=== PATIENT | male | born 1935 | race Caucasian/White ===

== ENCOUNTER 2016-06-15 23:22 | Observation (INO) | payer OTHER ==
[~2016-06-15] VITALS: Ht 162.6 cm; Wt 64.4 kg
[~2016-06-15 23:22] MED LIST: ALLO300T2 PO; BUME0.5T PO; CENTCHW3 PO; CHOL50006 PO; CO Q100C9 PO; IRONTAB4 PO; ISOS20TA38 PO; KCL10C PO; LISI-357 PO; MAGN400T20 PO; METO100T9 PO; OCUVTAB4 PO; POLY119S PO; PRAV20 PO; PROS5TAB2 PO; PROT40TA PO; TRAM100T19 PO; ZINC30CA PO
[2016-06-15 23:23] VITALS: BP 175/89; PULSE 70; RESP 18; TEMP 97.8; O2SAT 98
[2016-06-16] VITALS (8 sets, daily range): BP systolic 112–169; BP diastolic 58–80; PULSE 66–81; RESP 16–20; TEMP 97.6–98.3; O2SAT 96–99
--- NOTE | 2016-06-16 03:00 | RADRPT ---
EXAM DATE/TIME: 06/16/2016 02:16 [place] COMPARISON: CT ABDOMEN & PELVIS W/O CONTRAST, January 17, 2016, 20:24. INDICATIONS : Hematuria and inability to urinate. ORAL CONTRAST: No oral contrast ingested. RADIATION DOSE: 6.90 CTDIvol (mGy) MEDICAL HISTORY : Hypertension. Hernia, hiatal. diabetes, kidney disease, celiac disease prostate cancer SURGICAL HISTORY : Pacemaker. open heart, renal stent. ENCOUNTER: Initial ACUITY: 1 day PAIN SCALE: 7/10 LOCATION: abdomen TECHNIQUE: Volumetric scanning of the abdomen and pelvis was performed. Using automated exposure control and ad justment of the mA and/or kV according to patient size, radiation dose was kept as low as reasonably achievable to obtain optimal diagnostic quality images. FINDINGS: LOWER LUNGS: Moderate cardiomegaly. Clear lungs. LIVER: Homogeneous density without lesion. There is no dilation of the biliary tree. Small calcified gallst ones. SPLEEN: Normal size without lesion. PANCREAS: Within normal limits. KIDNEYS: Left kidney is atrophic. There is high attenuation material filling the collecting system which is mi ldly distended. A ureteral stent is noted ending in position. The appearance is similar to the prior study although the distention of the collecting system is considerably less. The right kidney is unre markable. No renal or ureteral calculi seen. ADRENAL GLANDS: Within normal limits. VASCULAR: There is no aortic aneurysm. BOWEL/MESENTERY: The stomach, small bowel, and colon demonstrate no acute abnormality. There is no free intraperitone al air. A small amount of ascitic fluid. ABDOMINAL WALL: A small umbilical hernia containing fat. RETROPERITONEUM: There is no lymphadenopathy. BLADDER: Urinary bladder is filled with high density material consistent with blood. There is an inflammatory process involving the wall which is thick walled and there is stranding of the adjacent fat. No stone s observed. A Lobo balloon is noted. REPRODUCTIVE: Within normal limits. INGUINAL: There is no lymphadenopathy or hernia. MUSCULOSKELETAL: Within normal limits for patient age. CONCLUSION: 1. Blood filling the urinary bladder as well as the collecting system of the left kidney. A left uret eral stent is present with mild hydronephrosis and hydroureter. The hydronephrosis and hydroureter is less pronounced than the prior study. There is an inflammatory component to the urinary bladder. Thi s is a new finding. 2. Small volume of ascites. 3. Cholelithiasis. 4. Umbilical hernia containing fat. Denny Linda Jr., MD on June 16, 2016 at 2:53 Board Certified Radiologist. This report was verified electronically.
[2016-06-16 03:02] LABS: AUTOMATED NEUTROPHIL # 11.3 TH/MM3 (1.8-7.7); BASOPHIL # 0.1 TH/MM3 (0-0.2); BASOPHIL % 0.7 % (0.0-2.0); EOSINOPHIL # 0.1 TH/MM3 (0-0.4); EOSINOPHIL % 0.5 % (0.0-4.0); HEMATOCRIT 36.2 % (39.0-51.0); HEMO FLAGS DIFF FINAL; LYMPHOCYTE # 0.5 TH/MM3 (1.0-4.8); MEAN CELL VOLUME 104.9 FL (80.0-100.0); MEAN CORPUSCULAR HEMOGLOBIN 34.4 PG (27.0-34.0); MEAN CORPUSCULAR HGB CONC 32.8 % (32.0-36.0); MONO % 3.8 % (0.0-8.0); PLATELET COUNT 174 TH/MM3 (150-450); RED BLOOD COUNT 3.45 MIL/MM3 (4.50-5.90); WHITE BLOOD COUNT 12.4 TH/MM3 (4.0-11.0)
[2016-06-16 03:06] LABS: BICARBONATE 23.1 MEQ/L (21.0-32.0); POTASSIUM 5.1 MEQ/L (3.5-5.1)
[2016-06-16 03:11] LABS: INTERNATIONAL NORMALIZED RATIO 1.4 RATIO
--- NOTE | 2016-06-16 03:28 | PD ---
HPI Chief Complaint: Complaint Time Seen by Provider: 01:54 Travel History International Travel<30 days: No Contact w/Intl Traveler<30days: No Traveled to known affect area: No History of Present Illness HPI 81-year-old male came into the emergency room as a walk-in with history of urinary retention and hematuria. Patient has history of prostate cancer with radiation and stent in his ureter. He has had hematuria in the past and was admitted for that. Patient says his urologist is Dr. Bell. Patient did not have any hematuria issues for the past 2 months. He is on Xarelto. He looked quite uncomfortable and the nurse put a hematuria catheter in. [facility] Past Medical History Narrative Medical List of his past medical history as reviewed from the nursing note. Cancer: Yes (PROSTATE-[id number]) Cardiovascular Problems: Yes (A FIB, CAD, HTN) Chemotherapy: Yes (PROSTATE CA) Diabetes: Yes Patient Takes Glucophage: Yes Diminished Hearing: No Endocrine: No Gastrointestinal Disorders: Yes (CELIAC DISEASE) Genitourinary: Yes (BLOCKAGE) Hepatitis: No Hiatal Hernia: Yes Hypertension: Yes Immune Disorder: No Musculoskeletal: No Neurologic: No Psychiatric: No Reproductive: No Respiratory: No Thyroid Disease: No Tetanus Vaccination: Unknown Influenza Vaccination: Yes Past Surgical History Abdominal Surgery: No AICD: No Cardiac Surgery: Yes (PACEMAKER) Ear Surgery: No Endocrine Surgery: No Eye Surgery: Yes (CATARACT RIGHT EYE) Genitourinary Surgery: Yes (SCOPED) Gynecologic Surgery: No Joint Replacement: No Oral Surgery: No Pacemaker: Yes Thoracic Surgery: Yes (OPEN HEART) Social History Alcohol Use: No Tobacco Use: No Substance Use: No Allergies-Medications (Allergen,Severity, Reaction): Coded Allergies: No Known Allergies (Unverified , 06/15/16) Comments No known drug allergies. Reported Meds & Prescriptions Reported Meds & Active Scripts Active Reported Tramadol (Tramadol HCl) 50 Mg Tab 50 Mg PO Q6H PRN K-Tab (Potassium Chloride) 10 Meq Tab 10 Meq PO DAILY Proscar (Finasteride) 5 Mg Tab 5 Mg PO DAILY Do not crush. Bumex (Bumetanide) 0.5 Mg Tab 0.5 Mg PO DAILY Allopurinol 300 Mg Tab 300 Mg PO DAILY Gabapentin 100 Mg Cap 100-200 Mg PO HS Isosorbide Mononitrate 10 Mg Tab 10 Mg PO DAILY Pantoprazole (Pantoprazole Sodium) 40 Mg Tab 40 Mg PO DAILY Lisinopril 5 Mg Tab 5 Mg PO DAILY Toprol XL (Metoprolol Succinate) 50 Mg Tab 50 Mg PO BID Pravastatin 40 Mg Tab 40 Mg PO HS Narrative Medication List of his home medications reviewed from the nursing note. Review of Systems Except as stated in HPI: all other systems reviewed are Neg Physical Exam Narrative GENERAL: Awake, alert, elderly, anxious, moderate distress SKIN: Warm and dry. HEAD: Atraumatic. Normocephalic. EYES: Pupils equal and round. No scleral icterus. No injection or drainage. ENT: No nasal bleeding or discharge. Mucous membranes pink and moist. NECK: Trachea midline. No JVD. CARDIOVASCULAR: Regular rate and rhythm. No murmur appreciated. RESPIRATORY: No accessory muscle use. Clear to auscultation. Breath sounds equal bilaterally. GASTROINTESTINAL: Abdomen soft, non-tender, nondistended. Hepatic and splenic margins not palpable. Suprapubic fullness and tenderness : Patient is circumcised, blood at the meatus MUSCULOSKELETAL: No obvious deformities. No clubbing. No cyanosis. No edema. NEUROLOGICAL: Awake and alert. No obvious cranial nerve deficits. Motor grossly within normal limits. Normal speech. PSYCHIATRIC: Appropriate mood and affect; insight and judgment normal. Data Data Last Documented VS Vital Signs Date Time Temp Pulse Resp B/P Pulse Ox O2 Delivery O2 Flow Rate FiO2 06/16/16 01:08 16 06/15/16 23:23 97.8 70 175/89 98 Room Air Orders Urinary Catheter Insert/Apply (06/16/16 01:54) Bladder/Catheter Irrigation (06/16/16 01:54) Ct Abd/Pel W/O Iv Contrast (06/16/16 ) Complete Blood Count With Diff (06/16/16 01:54) Basic Metabolic Panel (Bmp) (06/16/16 01:54) Prothrombin Time / Inr (Pt) (06/16/16 01:54) Type And Screen (06/16/16 01:54) Sodium Chlor 0.9% 1000 Ml Inj (Ns 1000 M (06/16/16 03:30) Admit Order (Ed Use Only) (06/16/16 03:38) Labs Laboratory Tests Test 06/16/16 02:40 White Blood Count 12.4 TH/MM3 Red Blood Count 3.45 MIL/MM3 Hemoglobin 11.9 GM/DL Hematocrit 36.2 % Mean Corpuscular Volume 104.9 FL Mean Corpuscular Hemoglobin 34.4 PG Mean Corpuscular Hemoglobin 32.8 % Concent Red Cell Distribution Width 15.0 % Platelet Count 174 TH/MM3 Mean Platelet Volume 8.7 FL Neutrophils (%) (Auto) 91.0 % Lymphocytes (%) (Auto) 4.0 % Monocytes (%) (Auto) 3.8 % Eosinophils (%) (Auto) 0.5 % Basophils (%) (Auto) 0.7 % Neutrophils # (Auto) 11.3 TH/MM3 Lymphocytes # (Auto) 0.5 TH/MM3 Monocytes # (Auto) 0.5 TH/MM3 Eosinophils # (Auto) 0.1 TH/MM3 Basophils # (Auto) 0.1 TH/MM3 CBC Comment DIFF FINAL Differential Comment Prothrombin Time 16.0 SEC Prothromb Time International 1.4 RATIO Ratio Sodium Level 141 MEQ/L Potassium Level 5.1 MEQ/L Chloride Level 106 MEQ/L Carbon Dioxide Level 23.1 MEQ/L Anion Gap 12 MEQ/L Blood Urea Nitrogen 34 MG/DL Creatinine 2.00 MG/DL Estimat Glomerular Filtration 32 ML/MIN Rate Random Glucose 171 MG/DL Calcium Level 8.7 MG/DL Blood Type B POSITIVE Antibody Screen NEGATIVE MDM Medical Decision Making Medical Screen Exam Complete: Yes Emergency Medical Condition: Yes Medical Record Reviewed: Yes Differential Diagnosis Hemorrhagic Cystitis, renal colic, bladder tumor Narrative Course 3:30 AM after the hematuria catheter was put in the nurse irrigated the bladder with 2 L of normal saline. Significant amount of blood clot was extracted. Currently the effluent is transparent but bloody. Blood test results of back and hemoglobin hematocrit is stable. Patient has poor renal function but when the labs were trended from the past BUN/creatinine has been similar in the past. I looked at his past admission which was in January and it was for the exact same reason. Patient has a renal ureteral stent that was put in by IR at that time. Urology was consult during that admission. I've ordered a liter of IV fluid bolus. I would recommend the patient to be admitted at least for observation so that urology can consult. Procedures EKG Prior to Arrival: No Diagnosis Primary Impression: Bladder obstruction Additional Impressions: Josiah hematuria Chronic kidney disease Qualified Code: N18.3 - Chronic kidney disease, stage 3 (moderate) Anticoagulation adequate on anticoagulation therapy for atrial fibrillation Admitting Information Admitting Physician Requests: Observation Krysten Martin MD Jun 16, 2016 03:28
[2016-06-16] MEDS ORDERED: SODIUM CHLOR 0.9% 1000 ML INJ 1,000 ML IV ONE (03:30)
[2016-06-16] MEDS ORDERED: BISACODYL 10 MG SUPP PR PRN (03:45)
[2016-06-16] MEDS ORDERED: ONDANSETRON HCL 4 MG/2 ML VIAL IVP PRN (03:45)
[2016-06-16] MEDS ORDERED: SODIUM CHLORIDE 0.9% FLUSH 5 ML FLUSH FLUSH PRN (03:45)
[2016-06-16] MEDS ORDERED: TEMAZEPAM 15 MG CAP PO PRN (03:45)
[2016-06-16] MEDS ORDERED: MAGNESIUM HYDROXIDE SUSP 30 ML CUP PO PRN (03:45)
[2016-06-16] MEDS ORDERED: SENNOSIDES 8.6 MG TAB PO PRN (03:45)
[2016-06-16] MEDS ORDERED: ACETAMINOPHEN 325 MG TAB PO PRN (03:45)
[2016-06-16] MEDS ORDERED: PROCHLORPERAZINE 25 MG SUPP PR PRN (03:45)
--- NOTE | 2016-06-16 05:05 | HHI.HP ---
[facility] Service [facility] Primary Care Physician Pietro Martini MD Admission Diagnosis hematuria, moderate obstruction, chronic kidney disease Diagnoses: Chief Complaint: hematuria Travel History International Travel<30 Days: No Contact w/Intl Traveler <30 Da: No Traveled to Known Affected Are: No History of Present Illness 81 y/o male with a history of prostate cancer presented to the ED with complaints of hematuria for one day. Patient states it was very difficult for him to urinate today and when he did, he had a large amount of blood in his urine with clots. Associated symptoms include defuse tightening lower abdominal pain. In January patient was admitted for a similar situation. In January he underwent ureteral stent placement. He currently denies any chest pain, sob, fever or chills. Per ED physician, patient had a large amount of clots when CBI was first started. Review of Systems Constitutional: DENIES: Fever, Chills Respiratory: DENIES: Cough, Sputum production, Shortness of breath Cardiovascular: COMPLAINS OF: Lower Extremity Edema, DENIES: Chest pain Gastrointestinal: COMPLAINS OF: Abdominal pain, DENIES: Diarrhea, Nausea, Vomiting Genitourinary: COMPLAINS OF: Hematuria Musculoskeletal: DENIES: Back pain, Neck pain Integumentary: DENIES: Rash Hematologic/lymphatic: DENIES: Lymphadenopathy Immunologic/allergic: DENIES: Urticaria Neurologic: DENIES: Headache Past Family Social History Past Medical History Prostate CA Bladder tumor PVD Past Surgical History Ureteral stents CABG Pacemaker Iliac stents Reported Medications Reported Meds & Active Scripts Active Allergies: Coded Allergies: No Known Allergies (Unverified , 06/15/16) Active Ordered Medications Current Medications Medications (Trade) Dose Ordered Sig/Anni Route Start Time Stop Time Status Last Admin (NS 1000 ml Inj) 1,000 ml @ 100 mls/hr Q10H IV 06/16/16 03:39 (NS Flush) 2 ml UNSCH PRN FLUSH 06/16/16 03:45 (NS Flush) 2 ml BID FLUSH 06/16/16 09:00 (Tylenol) 650 mg Q4H PRN PO 06/16/16 03:45 (Zofran Inj) 4 mg Q6H PRN IVP 06/16/16 03:45 (Compazine Supp) 25 mg Q12H PRN NC 06/16/16 03:45 (Dulcolax Supp) 10 mg DAILY PRN NC 06/16/16 03:45 (Milk Of Magnesia Liq) 30 ml Q12H PRN PO 06/16/16 03:45 (Senokot) 17.2 mg Q12H PRN PO 06/16/16 03:45 (Restoril) 15 mg HS PRN PO 06/16/16 03:45 Family History Family history significant for cancer and cardiac disease. Social History Tobacco use: quit 1990, prior to this 1ppd for 40 years Alcohol use: denies Illicit drug use: denies Physical Exam Vital Signs Vital Signs Date Time Temp Pulse Resp B/P Pulse Ox O2 Delivery O2 Flow Rate FiO2 06/16/16 01:08 16 06/15/16 23:23 97.8 70 18 175/89 98 Room Air Physical Exam GENERAL: This is a well-nourished, well-developed patient, in no apparent distress. SKIN: No rashes, ecchymoses or lesions. Cool and dry. HEAD: Atraumatic. Normocephalic. EYES: Pupils equal round and reactive. ENT: Nose without bleeding, purulent drainage or septal hematoma. Airway patent. NECK: Trachea midline. No JVD CARDIOVASCULAR: Regular rate and rhythm without murmurs, gallops, or rubs. RESPIRATORY: Clear to auscultation. Breath sounds equal bilaterally. No wheezes , rales, or rhonchi. GASTROINTESTINAL: Abdomen soft, LLQ and RLQ tenderness, nondistended. No guarding. : hematuria MUSCULOSKELETAL: Bilateral lower extremities +1 pitting edema. No calf tenderness. NEUROLOGICAL: Awake and alert. Cranial nerves II through XII intact. Motor and sensory grossly within normal limits. Five out of 5 muscle strength in all muscle groups. Normal speech. Laboratory Laboratory Tests Test 06/16/16 02:40 White Blood Count 12.4 Red Blood Count 3.45 Hemoglobin 11.9 Hematocrit 36.2 Mean Corpuscular Volume 104.9 Mean Corpuscular Hemoglobin 34.4 Mean Corpuscular Hemoglobin 32.8 Concent Red Cell Distribution Width 15.0 Platelet Count 174 Mean Platelet Volume 8.7 Neutrophils (%) (Auto) 91.0 Lymphocytes (%) (Auto) 4.0 Monocytes (%) (Auto) 3.8 Eosinophils (%) (Auto) 0.5 Basophils (%) (Auto) 0.7 Neutrophils # (Auto) 11.3 Lymphocytes # (Auto) 0.5 Monocytes # (Auto) 0.5 Eosinophils # (Auto) 0.1 Basophils # (Auto) 0.1 CBC Comment DIFF FINAL Differential Comment Prothrombin Time 16.0 Prothromb Time International 1.4 Ratio Sodium Level 141 Potassium Level 5.1 Chloride Level 106 Carbon Dioxide Level 23.1 Anion Gap 12 Blood Urea Nitrogen 34 Creatinine 2.00 Estimat Glomerular Filtration 32 Rate Random Glucose 171 Calcium Level 8.7 Blood Type B POSITIVE Antibody Screen NEGATIVE Result Diagram: 06/16/1623906/16/16239 Assessment and Plan Problem List: (1) Josiah hematuria ICD Code: R31.0 Status: Acute (2) Leukocytosis ICD Code: D72.829 Status: Acute Assessment and Plan 81 y/o with a history of prostate cancer presented with: Josiah hematuria Images: Abd CT shows blood in the urinary bladder. left ureteral stent with mild hydronephrosis and hydroureter. Small amount of ascitis and cholelithiasis. -Consult urology for recommendations -Cont Continuous bladder irrigation -Hold xarelto -NPO Leukocytosis Labs: wbc 12.4, neutrophils 91% -Supportive IVF -Trend CBC DVT prophylaxis: scds Written by Brittny FERGUSON, acting as scribe for Dr. Bravo on 06/16/16 at 0355. The documentation accurately reflects the work performed [id number] and decisions made by me and the physician Dr Bravo on 06/16/16. The documentation accurately reflects the work performed [id number] by me Dr. Bravo on 06/16/16. Discussed Condition With Patient Brittny Cabrera Jun 16, 2016 05:05 Peggy Bravo MD Jun 16, 2016 06:27
[2016-06-16] MEDS: SODIUM CHLOR 0.9% 1000 ML INJ 1,000 ML IV SCH ×2 (05:19→16:22)
[2016-06-16] MEDS: SODIUM CHLORIDE 0.9% FLUSH 5 ML FLUSH FLUSH SCH ×2 (08:52→20:43)
[2016-06-16] MEDS: cefTRIAXone INJ 1,000 MG in SODIUM CHLORIDE 0.9% INJ 100 ML IV SCH (10:57)
--- NOTE | 2016-06-16 12:30 | HHI.PR ---
Subjective Remarks Follow up for hematuria in a patient with bladder cancer. The patient reports hematuria started yesterday 06/15. He is now s/p bladder irrigation, hematuria improving, no clots, however still with bright red blood in Lobo. Denies fevers or chills. Does have some diffuse lower abdominal pain. Denies any nausea /vomiting. The patient sees urologist Dr. Bell, s/p cystoscopy with resection of cancer x2 and had planned to follow up with in next week in the office. Discussed with Dr. Bell, he will evaluate the patient today. Objective Vitals Vital Signs Date Time Temp Pulse Resp B/P Pulse Ox O2 Delivery O2 Flow Rate FiO2 06/16/16 08:07 78 16 128/61 99 Room Air 06/16/16 05:20 77 18 138/80 99 Room Air 06/16/16 01:08 16 06/15/16 23:23 97.8 70 18 175/89 98 Room Air Result Diagram: 06/16/16 0240 06/16/16 0240 Imaging Last Impressions Abdomen/Pelvis CT 06/16/16 0000 Signed Impressions: Service Date/Time: June 02:16 - CONCLUSION: 1. Blood filling the urinary bladder as well as the collecting system of the left kidney. A left ureteral stent is present with mild hydronephrosis and hydroureter. The hydronephrosis and hydroureter is less pronounced than the prior study. There is an inflammatory component to the urinary bladder. This is a new finding. 2. Small volume of ascites. 3. Cholelithiasis. 4. Umbilical hernia containing fat. Denny Linda Jr., MD Objective Remarks GENERAL: Well-nourished, well-developed pleasant elderly male patient in [facility]. SKIN: Warm and dry. No rash. HEAD: Normocephalic. Atraumatic. EYES: Pupils equal and round. No scleral icterus. No injection or drainage. ENT: No nasal bleeding or discharge. Mucous membranes pink and moist. NECK: Supple. Trachea midline. CARDIOVASCULAR: Regular rate and rhythm. S1, S2 noted. No murmur appreciated. RESPIRATORY: No accessory muscle use. Clear to auscultation. Breath sounds equal bilaterally. GASTROINTESTINAL: Abdomen soft, nondistended. TTP diffusely across bilateral lower quadrants and suprapubic area. Normoactive bowel sounds x4. GENITOURINARY: Lobo in place with bright red bloody hematuria, no obvious clots. MUSCULOSKELETAL: No obvious deformities. 1-2+ b/l lower extremity pitting edema. NEUROLOGICAL: Awake and alert. No obvious cranial nerve deficits. Motor grossly within normal limits. Normal speech. PSYCHIATRIC: Appropriate mood and affect; insight and judgment normal. Medications and IVs Current Medications Medications (Trade) Dose Ordered Sig/Anni Route Start Time Stop Time Status Last Admin (NS 1000 ml Inj) 1,000 ml @ 70 mls/hr [id number] IV 06/16/16 03:39 06/16/16 05:19 (NS Flush) 2 ml UNSCH PRN FLUSH 06/16/16 03:45 (NS Flush) 2 ml BID FLUSH 06/16/16 09:00 (Tylenol) 650 mg Q4H PRN PO 06/16/16 03:45 (Zofran Inj) 4 mg Q6H PRN IVP 06/16/16 03:45 (Compazine Supp) 25 mg Q12H PRN CO 06/16/16 03:45 (Dulcolax Supp) 10 mg DAILY PRN CO 06/16/16 03:45 (Senokot) 17.2 mg Q12H PRN PO 06/16/16 03:45 Temazepam 15 mg 15 mg HS PRN PO 06/16/16 03:45 (Rocephin Inj/NS Inj) 100 ml @ 200 mls/hr Q24H IV 06/16/16 11:00 06/16/16 10:57 Urinary Catheter: Yes Assessment to: Continue Date of Insertion: Jun 15, 2016 Vascular Central Line Catheter: No A/P Problem List: (1) Josiah hematuria ICD Code: R31.0 Status: Acute (2) Leukocytosis ICD Code: D72.829 Status: Acute Assessment and Plan 81-year-old male with history of bladder cancer, prostate cancer, CAD s/p CABG, arrhythmia on Xarelto with pacemaker in place, PVD, CKD, stage III, presents with hematuria x1day Hematuria: with Bladder Cancer s/p cystoscopy with bladder tumor resections x2 with Dr. Bell. Hold patient's Xarelto. Monitor H&H, currently stable at 11.9. Lobo placed, s/p bladder irrigation overnight which expressed significant amount of clots, now hematuria slightly improved, no further clots. Consulted urologist Dr. Bell, discussed with him, will evaluate today. Started on IV Rocephin for now. CAD s/p CABG, Arrhythmia with Pacemaker: chronic, stable, holding Xarelto with hematuria as above. Awaiting med rec to be updated to restart home meds. CKD, stage III: chronic, appears at baseline. Avoid further nephrotoxins. DVT Prophylaxis: holding Xarelto with hematuria Written by Liya Richardson, acting as scribe for Dr. Davison on 06/16/16 at 09:15. Liya Richardson PA-C Jun 16, 2016 12:30 Ameya Davison MD Jun 16, 2016 16:30
[2016-06-16 13:14] LABS: HEMATOCRIT 27.1 % (39.0-51.0); REVIEW FLAG FINAL
[2016-06-16] MEDS ORDERED: LISI-519 PO (13:18)
[2016-06-16] MEDS ORDERED: K-TA10TA PO (13:18)
[2016-06-16] MEDS ORDERED: TOPR50TA PO (13:18)
[2016-06-16] MEDS ORDERED: ISOS10TA3 PO (13:18)
[2016-06-16] MEDS ORDERED: PANT40TA3 PO (13:18)
[2016-06-16] MEDS ORDERED: PROS5TAB PO (13:18)
[2016-06-16] MEDS ORDERED: ALLO300T2 PO (13:18)
[2016-06-16] MEDS ORDERED: PRAV40TA2 PO (13:18)
[2016-06-16] MEDS ORDERED: GABA100C4 PO (13:18)
[2016-06-16] MEDS ORDERED: BUME1TAB25 PO (13:18)
[2016-06-16] MEDS ORDERED: TRAM50TA PO (13:19)
[2016-06-16] MEDS ORDERED: traMADol HCL 50 MG TAB PO PRN (14:30)
[2016-06-16] MEDS ORDERED: PILL SPLITTER OTHER PRN (15:00)
--- NOTE | 2016-06-16 15:36 | PD.CONS ---
[facility] Service Urology Consult Requested By Reason for Consult waiver analyst coverage for gross hematuria and suprapubic pain. Primary Care Physician Pietro Martini MD Diagnosis: (1) Josiah hematuria ICD Code: R31.0 (2) Leukocytosis ICD Code: D72.829 History of Present Illness 81-year-old gentleman with a history of prostate cancer status post radiation therapy and bladder cancer who is being managed by Dr. Bell. Patient presented to the emergency room with gross hematuria and had a CBI Lobo placed. Patient is status post a TURBT with placement of a left stent approximately 2 months ago and was scheduled to have his left stent removed next week. I was called to evaluate the patient as the CBI was not functioning well and the patient was complaining of suprapubic pain. Patient has a history of atrial fibrillation and is presently being managed with Xarelto. Review of Systems Constitutional: DENIES: Fever, Chills Cardiovascular: DENIES: Chest pain, Palpitations Gastrointestinal: COMPLAINS OF: Abdominal pain Genitourinary: COMPLAINS OF: Hematuria Past Family Social History Past Medical History Bladder cancer Prostate cancer Atrial fibrillation Coronary artery disease Peripheral vascular disease Cataracts Chronic kidney disease Past Surgical History Status post CABG Status post cardiac pacemaker Status post TURBT with left stent placement Status post iliac stents Reported Medications Refer to EMR Allergies: Coded Allergies: No Known Allergies (Unverified , 06/15/16) Active Ordered Medications Refer to EMR Family History Mother with coronary artery disease Father with some type of cancer Social History Former heavy smoker of one pack per day 40 years (quit in 1990) Denies alcohol or illicit drug abuse Physical Exam Vital Signs Vital Signs Date Time Temp Pulse Resp B/P Pulse Ox O2 Delivery O2 Flow Rate FiO2 06/16/16 12:35 72 18 169/73 96 Room Air 06/16/16 08:40 97 21 06/16/16 08:07 78 16 128/61 99 Room Air 06/16/16 05:20 77 18 138/80 99 Room Air 06/16/16 01:08 16 06/15/16 23:23 97.8 70 18 175/89 98 Room Air Physical Exam GENERAL: This is a well-nourished, well-developed patient, in no apparent distress. SKIN: No rashes, ecchymoses or lesions. Cool and dry. HEAD: Atraumatic. Normocephalic. No temporal or scalp tenderness. EYES: Pupils equal round and reactive. Extraocular motions intact. No scleral icterus. No injection or drainage. ENT: Nose without bleeding, purulent drainage or septal hematoma. Throat without erythema, tonsillar hypertrophy or exudate. Uvula midline. Airway patent. NECK: Trachea midline. No JVD or lymphadenopathy. Supple, nontender, no meningeal signs. GASTROINTESTINAL: Lower abdomen firm and tender consistent with overdistention of the bladder. : CBI running at a slow rate with poor output MUSCULOSKELETAL: Extremities without clubbing, cyanosis, or edema. No joint tenderness, effusion, or edema noted. No calf tenderness. Negative Homans sign bilaterally. NEUROLOGICAL: Awake and alert. Cranial nerves II through XII intact. Motor and sensory grossly within normal limits. Five out of 5 muscle strength in all muscle groups. Normal speech. Laboratory Laboratory Tests Test 06/16/16 06/16/16 02:40 13:00 White Blood Count 12.4 Red Blood Count 3.45 Hemoglobin 11.9 9.0 Hematocrit 36.2 27.1 Mean Corpuscular Volume 104.9 Mean Corpuscular Hemoglobin 34.4 Mean Corpuscular Hemoglobin 32.8 Concent Red Cell Distribution Width 15.0 Platelet Count 174 Mean Platelet Volume 8.7 Neutrophils (%) (Auto) 91.0 Lymphocytes (%) (Auto) 4.0 Monocytes (%) (Auto) 3.8 Eosinophils (%) (Auto) 0.5 Basophils (%) (Auto) 0.7 Neutrophils # (Auto) 11.3 Lymphocytes # (Auto) 0.5 Monocytes # (Auto) 0.5 Eosinophils # (Auto) 0.1 Basophils # (Auto) 0.1 CBC Comment DIFF FINAL Differential Comment Prothrombin Time 16.0 Prothromb Time International 1.4 Ratio Sodium Level 141 Potassium Level 5.1 Chloride Level 106 Carbon Dioxide Level 23.1 Anion Gap 12 Blood Urea Nitrogen 34 Creatinine 2.00 Estimat Glomerular Filtration 32 Rate Random Glucose 171 Calcium Level 8.7 Blood Type B POSITIVE Antibody Screen NEGATIVE Result Diagram: 06/16/16 1300 06/16/16 0240 Course I attempted to irrigate out the three-way CBI catheter without success. The catheter was exchanged for a 22 Welsh two-way Lobo with evacuation of a large amount of grossly bloody urine with no definitive clots. I then proceeded to irrigate the bladder with sterile water and we connected the catheter to gravity drainage. Assessment and Plan Assessment and Plan Urologic impression: #1 bladder cancer rule out recurrent disease #2 hematuria possibly related to recurrent bladder cancer and exacerbated with anticoagulation therapy Recommendations; #1 continue with Lobo catheter to gravity drainage and irrigate with sterile water when necessary. #2 I was made aware after this evaluation that was consulted and would be providing ongoing urologic care. Johan Marrero MD Jun 16, 2016 15:35
--- NOTE | 2016-06-16 15:44 | PD.CONS ---
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 Patient had a TURBT as well as left tumor laser ablation 2 months ago with a left ureteral stent in place. Patient reports he was doing well however developed an acute bleed yesterday that was persistent with large clots. He began to feel pressure in his bladder with inability to void and presented to the [facility] ED. A urethral catheter was placed with CBI, however this appeared to have clotted and the catheter was exchanged to what he has now of a 22Fr dawson. His urine remains bloody, few clots noted. No pain at this time, no fevers. He is scheduled to have his left stent removed on 06/21/16. Review of Systems ROS Limitations: Clinical Condition Constitutional: DENIES: Fever Endocrine: DENIES: Heat/cold intolerance Eyes: DENIES: Blurred vision Ears, nose, mouth, throat: DENIES: Hearing loss Respiratory: DENIES: Apneas Cardiovascular: DENIES: Chest pain Gastrointestinal: COMPLAINS OF: Abdominal pain Genitourinary: COMPLAINS OF: Hematuria Musculoskeletal: DENIES: Joint pain Hematologic/lymphatic: DENIES: Bruising Immunologic/allergic: DENIES: Eczema Neurologic: DENIES: Headache Psychiatric: DENIES: Anxiety Past Family Social History Past Medical History Prostate CA Bladder tumor PVD Past Surgical History Ureteral stents CABG Pacemaker Iliac stents Reported Medications Reported Meds & Active Scripts Active Reported Tramadol (Tramadol HCl) 50 Mg Tab 50 Mg PO Q6H PRN K-Tab (Potassium Chloride) 10 Meq Tab 10 Meq PO DAILY Proscar (Finasteride) 5 Mg Tab 5 Mg PO DAILY Do not crush. Bumex (Bumetanide) 0.5 Mg Tab 0.5 Mg PO DAILY Allopurinol 300 Mg Tab 300 Mg PO DAILY Gabapentin 100 Mg Cap 100-200 Mg PO HS Isosorbide Mononitrate 10 Mg Tab 10 Mg PO DAILY Pantoprazole (Pantoprazole Sodium) 40 Mg Tab 40 Mg PO DAILY Lisinopril 5 Mg Tab 5 Mg PO DAILY Toprol XL (Metoprolol Succinate) 50 Mg Tab 50 Mg PO BID Pravastatin 40 Mg Tab 40 Mg PO HS Allergies: Coded Allergies: No Known Allergies (Unverified , 06/15/16) Active Ordered Medications Current Medications Medications (Trade) Dose Ordered Sig/Anni Route Start Time Stop Time Status Last Admin (NS 1000 ml Inj) 1,000 ml @ 70 mls/hr [id number] IV 06/16/16 03:39 06/16/16 05:19 (NS Flush) 2 ml UNSCH PRN FLUSH 06/16/16 03:45 (NS Flush) 2 ml BID FLUSH 06/16/16 09:00 (Tylenol) 650 mg Q4H PRN PO 06/16/16 03:45 (Zofran Inj) 4 mg Q6H PRN IVP 06/16/16 03:45 (Compazine Supp) [address] 06/16/16 03:45 (Dulcolax Supp) [address] 06/16/16 03:45 (Senokot) 17.2 mg Q12H PRN PO 06/16/16 03:45 Temazepam 15 mg 15 mg HS PRN PO 06/16/16 03:45 (Rocephin Inj/NS Inj) 100 ml @ 200 mls/hr Q24H IV 06/16/16 11:00 06/16/16 10:57 (Zyloprim) 300 mg DAILY PO 06/17/16 09:00 (Bumetanide) 0.5 mg DAILY PO 06/17/16 09:00 (Proscar) 5 mg DAILY PO 06/17/16 09:00 (Neurontin) 200 mg HS PO 06/16/16 21:00 (Ismo) 10 mg DAILY PO 06/17/16 09:00 (Prinivil) 5 mg DAILY PO 06/17/16 09:00 (Toprol Xl) 50 mg BID PO 06/16/16 21:00 (Protonix) 40 mg DAILY PO 06/17/16 09:00 (Pravachol) 40 mg HS PO 06/16/16 21:00 (Ultram) 50 mg Q6H PRN PO 06/16/16 14:30 (Pill Splitter) 1 ea UNSCH PRN OTHER 06/16/16 15:00 Family History Family history significant for cancer and cardiac disease. Social History Tobacco use: quit 1990, prior to this 1ppd for 40 years Alcohol use: denies Illicit drug use: denies Physical Exam Vital Signs Vital Signs Date Time Temp Pulse Resp B/P Pulse Ox O2 Delivery O2 Flow Rate FiO2 06/16/16 12:35 72 18 169/73 96 Room Air 06/16/16 08:40 97 21 06/16/16 08:07 78 16 128/61 99 Room Air 06/16/16 05:20 77 18 138/80 99 Room Air 06/16/16 01:08 16 06/15/16 23:23 97.8 70 18 175/89 98 Room Air Physical Exam GENERAL: This is a well-nourished, well-developed patient, in no apparent distress. SKIN: No rashes, ecchymoses or lesions. Cool and dry. HEAD: Atraumatic. Normocephalic. EYES: Extraocular motions intact. No scleral icterus. No injection or drainage. ENT: Nose without bleeding, purulent drainage. Airway patent. NECK: Trachea midline. No JVD or lymphadenopathy. CARDIOVASCULAR: Normal pulse, extremities well perfused RESPIRATORY: Nonlabored Respirations, equal chest rise GASTROINTESTINAL: Abdomen soft, non-tender, nondistended. : Uncircumcised phallus, normal urethral meatus, 22Fr dawson catheter in place with dark red urine noted. MUSCULOSKELETAL: Extremities without clubbing, cyanosis, or edema. NEUROLOGICAL: Awake and alert. Motor and sensory grossly within normal limits. Normal speech. Laboratory Laboratory Tests Test 06/16/16 06/16/16 02:40 13:00 White Blood Count 12.4 Red Blood Count 3.45 Hemoglobin 11.9 9.0 Hematocrit 36.2 27.1 Mean Corpuscular Volume 104.9 Mean Corpuscular Hemoglobin 34.4 Mean Corpuscular Hemoglobin 32.8 Concent Red Cell Distribution Width 15.0 Platelet Count 174 Mean Platelet Volume 8.7 Neutrophils (%) (Auto) 91.0 Lymphocytes (%) (Auto) 4.0 Monocytes (%) (Auto) 3.8 Eosinophils (%) (Auto) 0.5 Basophils (%) (Auto) 0.7 Neutrophils # (Auto) 11.3 Lymphocytes # (Auto) 0.5 Monocytes # (Auto) 0.5 Eosinophils # (Auto) 0.1 Basophils # (Auto) 0.1 CBC Comment DIFF FINAL Differential Comment Prothrombin Time 16.0 Prothromb Time International 1.4 Ratio Sodium Level 141 Potassium Level 5.1 Chloride Level 106 Carbon Dioxide Level 23.1 Anion Gap 12 Blood Urea Nitrogen 34 Creatinine 2.00 Estimat Glomerular Filtration 32 Rate Random Glucose 171 Calcium Level 8.7 Blood Type B POSITIVE Antibody Screen NEGATIVE Result Diagram: 06/16/16 1300 06/16/16 0240 Imaging Last 48 hours Impressions Abdomen/Pelvis CT 06/16/16 0000 Signed Impressions: Service Date/Time: June 02:16 - CONCLUSION: 1. Blood filling the urinary bladder as well as the collecting system of the left kidney. A left ureteral stent is present with mild hydronephrosis and hydroureter. The hydronephrosis and hydroureter is less pronounced than the prior study. There is an inflammatory component to the urinary bladder. This is a new finding. 2. Small volume of ascites. 3. Cholelithiasis. 4. Umbilical hernia containing fat. 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 Status: Acute (3) Afib ICD Code: I48.91 Status: Acute (4) CAD (coronary artery disease) ICD Code: I25.10 Status: Acute Assessment and Plan 81yo male with urothelial carcinoma of the bladder and left distal ureter -Bedside hand irrigation with several liters of normal saline performed with significant clots removed -Maintain dawson catheter in place with hand irrigation every 2hrs as well as every 1hr prn for clots -Start CBI with hand irrigation for clots -If hematuria does not improve, patient may require OR for cystoscopy and clot evacuation -Recommend antibiotic therapy given appearance of bladder on CT scan as well as catheter manipulation and irrigation -Hematuria may be secondary to infection as well as the left ureteral stent while on anticoagulation -Hold anticoagulation for now until urine clears -Dawson catheter may be removed if urine clears. He is to maintain Urology clinic appointment next week for stent removal -NPO at midnight -Will follow Ry Bell MD Jun 16, 2016 15:44
[2016-06-16] MEDS: GABAPENTIN 100 MG CAP PO SCH (20:43)
[2016-06-16] MEDS: PRAVASTATIN SOD 40 MG TAB PO SCH (20:44)
[2016-06-16] MEDS: METOPROLOL SUCCINATE 50 MG EXTENDED RELEASE TAB PO SCH (20:44)
[2016-06-16] MEDS: OXYBUTYNIN CHLORIDE 5 MG TAB PO SCH (20:45)
[2016-06-17] VITALS (9 sets, daily range): BP systolic 101–146; BP diastolic 53–64; PULSE 67–85; RESP 18–20; TEMP 97.7–98.4; O2SAT 94–100
[2016-06-17] MEDS: OXYBUTYNIN CHLORIDE 5 MG TAB PO SCH ×3 (06:04→21:16)
[2016-06-17] MEDS: SODIUM CHLOR 0.9% 1000 ML INJ 1,000 ML IV SCH ×2 (06:40→20:58)
[2016-06-17] MEDS: METOPROLOL SUCCINATE 50 MG EXTENDED RELEASE TAB PO SCH ×2 (08:16→21:16)
[2016-06-17] MEDS: LISINOPRIL 5 MG TAB PO SCH (08:17)
[2016-06-17] MEDS: ALLOPURINOL 300 MG TAB PO SCH (08:17)
[2016-06-17] MEDS: BUMETANIDE 1 MG TAB PO SCH (08:17)
[2016-06-17] MEDS: FINASTERIDE 5 MG TAB PO SCH (08:17)
[2016-06-17] MEDS: ISOSORBIDE MONONITRATE 20 MG TAB PO SCH (08:17)
[2016-06-17] MEDS: PANTOPRAZOLE SOD 40 MG DELAYED RELEASE TAB PO SCH (08:17)
[2016-06-17] MEDS: SODIUM CHLORIDE 0.9% FLUSH 5 ML FLUSH FLUSH SCH ×2 (08:19→21:00)
[2016-06-17] MEDS ORDERED: PROPOFOL 200 MG/20 ML AMP IV ONE (08:29)
[2016-06-17] MEDS ORDERED: PHENYLEPH/NS 1000 MCG/10 ML SYR IV ONE (08:29)
[2016-06-17] MEDS ORDERED: ONDANSETRON HCL 4 MG/2 ML VIAL IV PUSH ONE (08:29)
[2016-06-17 09:22] LABS: AUTOMATED NEUTROPHIL # 7.9 TH/MM3 (1.8-7.7); BASOPHIL % 0.5 % (0.0-2.0); EOSINOPHIL # 0.1 TH/MM3 (0-0.4); EOSINOPHIL % 1.2 % (0.0-4.0); HEMATOCRIT 23.7 % (39.0-51.0); HEMO FLAGS DIFF FINAL; LYMPH % 8.5 % (9.0-44.0); LYMPHOCYTE # 0.8 TH/MM3 (1.0-4.8); MEAN CELL VOLUME 105.1 FL (80.0-100.0); MEAN CORPUSCULAR HGB CONC 33.3 % (32.0-36.0); MONO % 9.7 % (0.0-8.0); NEUT % 80.1 % (16.0-70.0); PLATELET COUNT 124 TH/MM3 (150-450); RED BLOOD COUNT 2.26 MIL/MM3 (4.50-5.90); WHITE BLOOD COUNT 9.8 TH/MM3 (4.0-11.0)
[2016-06-17 09:40] LABS: BICARBONATE 23.1 MEQ/L (21.0-32.0); POTASSIUM 4.3 MEQ/L (3.5-5.1)
[2016-06-17] MEDS ORDERED: ACETAMINOPHEN 325 MG TAB PO PRN (10:00)
[2016-06-17] MEDS ORDERED: diphenhydrAMINE HCL 25 MG CAP PO PRN (10:00)
--- NOTE | 2016-06-17 10:02 | HHI.PR ---
Subjective Remarks Follow-up hematuria. Patient denies any further bladder pain today, only whenever manipulated. Hematuria is improving, but still present. Going for intervention with urology this afternoon. Objective Vitals Vital Signs Date Time Temp Pulse Resp B/P Pulse Ox O2 Delivery O2 Flow Rate FiO2 06/17/16 07:27 97.7 68 18 115/56 100 06/17/16 04:37 98.3 68 20 119/58 97 06/16/16 23:32 98.3 81 20 112/58 98 06/16/16 20:53 98.3 78 20 149/67 99 06/16/16 20:31 66 06/16/16 16:48 97.6 76 18 145/66 99 06/16/16 12:35 72 18 169/73 96 Room Air I/O 06/16/16 06/16/16 06/16/16 06/17/16 06/17/16 06/17/16 07:00 15:00 23:00 07:00 15:00 23:00 Intake Total 120 ml 64833 ml Output Total 9600 ml 600 ml Balance 120 ml 4207 ml -600 ml Intake Oral 120 ml 240 ml IV Total 1567 ml Other 53738 ml Output Urine Total 9600 ml 600 ml Result Diagram: 06/17/16 0853 06/17/16 0853 Imaging Last Impressions Abdomen/Pelvis CT 06/16/16 0000 Signed Impressions: Service Date/Time: June 02:16 - CONCLUSION: 1. Blood filling the urinary bladder as well as the collecting system of the left kidney. A left ureteral stent is present with mild hydronephrosis and hydroureter. The hydronephrosis and hydroureter is less pronounced than the prior study. There is an inflammatory component to the urinary bladder. This is a new finding. 2. Small volume of ascites. 3. Cholelithiasis. 4. Umbilical hernia containing fat. Denny Linda Jr., MD Objective Remarks GENERAL: Well-developed well-nourished. In no acute distress. SKIN: Warm and dry. No lesions noted. HEENT: Normocephalic. Pupils equal and round. Mucous membranes pink and moist. CARDIOVASCULAR: Regular rate and rhythm. No murmur appreciated. RESPIRATORY: No accessory muscle use. Clear to auscultation. Breath sounds equal bilaterally. GASTROINTESTINAL: Abdomen soft, non-tender, nondistended. Bowel sounds x4. : Lobo catheter in place with bright red tinged hematuria MUSCULOSKELETAL: No obvious deformities. No clubbing or cyanosis. No edema. NEUROLOGICAL: Awake and alert. No focal neurological deficits. Moves upper and lower extremities spontaneously. Normal speech. PSYCHIATRIC: Appropriate mood and affect; insight and judgment normal. Date of Insertion: Jun 15, 2016 A/P Problem List: (1) Josiah hematuria ICD Code: R31.0 Status: Acute (2) Leukocytosis ICD Code: D72.829 Status: Resolved Assessment and Plan 81-year-old male with history of bladder cancer, prostate cancer, CAD s/p CABG, arrhythmia on Xarelto with pacemaker in place, PVD, CKD, stage III, presents with hematuria x1day Hematuria: with Bladder Cancer s/p cystoscopy with bladder tumor resections x2 with Dr. Bell. Hold patient's Xarelto. Monitor H&H. Consulted urologist Dr. Bell, continue CBI, OR today. Acute anemia from blood loss: Secondary to the above. Hemoglobin continues to trend down 11.9 -> 9 -> 7.9. Give 1 unit PRBC. Macrocytosis, check B12 and folate. Possible UTI: Abdominal and pelvis CT showed an inflammatory component to the urinary bladder. On empiric IV Rocephin. Follow up urine culture. CAD s/p CABG, Arrhythmia with Pacemaker: chronic, stable, holding Xarelto with hematuria as above. Continue home meds. CKD, stage III: chronic, appears at baseline. Avoid further nephrotoxins. DVT Prophylaxis: holding Xarelto with hematuria Written by Daquan Cordova, acting as scribe for Dr. Davison on 06/17/16 at 09:58. The documentation accurately reflects the work performed [id number] by me on at [id number] Discharge Planning Disposition pending clinical course Daquan Cordova Jun 17, 2016 10:02 Ameya Davison MD Jun 17, 2016 16:34
[2016-06-17] MEDS ORDERED: FUROSEMIDE 20 MG/2 ML VIAL IV ONE (10:30)
[2016-06-17] MEDS ORDERED: SODIUM CHLOR 0.9% 250 ML INJ 250 ML IV ONE (10:30)
[2016-06-17] MEDS: cefTRIAXone INJ 1,000 MG in SODIUM CHLORIDE 0.9% INJ 100 ML IV SCH (14:54)
--- NOTE | 2016-06-17 16:53 | HHI.PR ---
Subjective Remarks Patient with persistent hematuria despite hand irrigation and CBI. No obvious clots, however dark red urine noted. No fevers, no pain. Objective Vital Signs Vital Signs Date Time Temp Pulse Resp B/P Pulse Ox O2 Delivery O2 Flow Rate FiO2 06/17/16 15:31 67 19 146/63 95 06/17/16 14:59 98.1 67 19 106/60 94 06/17/16 12:41 98.3 83 18 101/53 95 06/17/16 12:15 98.1 85 20 116/60 96 06/17/16 12:00 98.2 85 18 118/64 95 06/17/16 11:23 98.0 79 19 118/57 97 06/17/16 07:27 97.7 68 18 115/56 100 06/17/16 04:37 98.3 68 20 119/58 97 06/16/16 23:32 98.3 81 20 112/58 98 06/16/16 20:53 98.3 78 20 149/67 99 06/16/16 20:31 66 I/O 06/16/16 06/16/16 06/16/16 06/17/16 06/17/16 06/17/16 07:00 15:00 23:00 07:00 15:00 23:00 Intake Total 120 ml 55566 ml Output Total 9600 ml 1500 ml 550 ml Balance 120 ml 4207 ml -1500 ml -550 ml Intake Oral 120 ml 240 ml IV Total 1567 ml Other 95901 ml Output Urine Total 9600 ml 1500 ml 550 ml Result Diagram: 06/17/16 0853 06/17/16 0853 Imaging Last 48 hours Impressions Abdomen/Pelvis CT 06/16/16 0000 Signed Impressions: Service Date/Time: June 02:16 - CONCLUSION: 1. Blood filling the urinary bladder as well as the collecting system of the left kidney. A left ureteral stent is present with mild hydronephrosis and hydroureter. The hydronephrosis and hydroureter is less pronounced than the prior study. There is an inflammatory component to the urinary bladder. This is a new finding. 2. Small volume of ascites. 3. Cholelithiasis. 4. Umbilical hernia containing fat. Denny Linda Jr., MD Objective Remarks NAD, AAOx3 Resp NL Ab S/NT/ND : Lobo catheter with CBI and bloody urine output, no obvious clots. 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
[2016-06-17] MEDS ORDERED: ACETAMINOPHEN 1000 MG/100 ML VIAL IV ONE (17:17)
--- NOTE | 2016-06-17 19:16 | HHI.PR ---
Subjective Remarks Large amount of blood clots noted within the bladder, removed successfully. Noted signficant bleeding vessel at the left anterio-lateral bladder neck. This was fulgurated. Prostatic hypertrophy with bleeding vessels resected portion of prostate and fulgurated bleeders. Left stent successfully removed. 22Fr [address] dawson catheter replaced with CBI. -Maintain CBI overnight wide open -May begin to titrate off tomorrow morning if urine remains clear -Patient to maintain dawson catheter in place for 1 week with close urology follow-up in clinic Objective Vital Signs Vital Signs Date Time Temp Pulse Resp B/P Pulse Ox O2 Delivery O2 Flow Rate FiO2 06/17/16 15:31 67 19 146/63 95 06/17/16 14:59 98.1 67 19 106/60 94 06/17/16 12:41 98.3 83 18 101/53 95 06/17/16 12:15 98.1 85 20 116/60 96 06/17/16 12:00 98.2 85 18 118/64 95 06/17/16 11:23 98.0 79 19 118/57 97 06/17/16 07:27 97.7 68 18 115/56 100 06/17/16 04:37 98.3 68 20 119/58 97 06/16/16 23:32 98.3 81 20 112/58 98 06/16/16 20:53 98.3 78 20 149/67 99 06/16/16 20:31 66 I/O 06/16/16 06/16/16 06/16/16 06/17/16 06/17/16 06/17/16 07:00 15:00 23:00 07:00 15:00 23:00 Intake Total 120 ml 03297 ml Output Total 9600 ml 1500 ml 550 ml Balance 120 ml 4207 ml -1500 ml -550 ml Intake Oral 120 ml 240 ml IV Total 1567 ml Other 34753 ml Output Urine Total 9600 ml 1500 ml 550 ml Result Diagram: 06/17/16 0853 06/17/16 0853 Imaging Last 48 hours Impressions Abdomen/Pelvis CT 06/16/16 0000 Signed Impressions: Service Date/Time: June 02:16 - CONCLUSION: 1. Blood filling the urinary bladder as well as the collecting system of the left kidney. A left ureteral stent is present with mild hydronephrosis and hydroureter. The hydronephrosis and hydroureter is less pronounced than the prior study. There is an inflammatory component to the urinary bladder. This is a new finding. 2. Small volume of ascites. 3. Cholelithiasis. 4. Umbilical hernia containing fat. Denny Linda Jr., MD Objective Remarks NAD, AAOx3 Resp NL Ab S/NT/ND : Dawson catheter with CBI and bloody urine output, no obvious clots. 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
[2016-06-17] MEDS ORDERED: DO NOT ADM ANY ANTICOAGULANT DRUGS XX PRN (19:19)
[2016-06-17] MEDS ORDERED: fentaNYL CITRATE 250 MCG/5 ML AMP ONE (19:24)
--- NOTE | 2016-06-17 20:14 | MP ---
cc: CARMEN ABDULLAHI MD DATE OF SURGERY: 06/17/2016. PREOPERATIVE DIAGNOSIS: Hematuria. POSTOPERATIVE DIAGNOSIS: Hematuria with large blood clots and obstructing prostate. OPERATION: 1. Cystoscopy. 2. Clot evacuation. 3. Fulguration of bleeders. 4. TURP. 5. Left ureteral stent removal. ATTENDING SURGEON: Carmen Abdullahi MD. PERTINENT FINDINGS: 1. Blood clot noted throughout the entire bladder encompassing the entire bladder and adherent to the anterior bladder as well as the left bladder wall. 2. Successful removal of all clots. 3. Fulguration of bleeding, which was noted to be at the left posterolateral bladder wall/neck and location of the prior TURBT site as well as prostate. 4. TURP of obstructing median lobe and fulguration of bleeders from the prostate. 5. Successful removal of left ureteral stent. 6. No other lesions or other abnormalities noted throughout the entire bladder. INDICATIONS FOR THE PROCEDURE / HISTORY OF PRESENT ILLNESS: Raleigh Paris is an 81-year-old male with history of a bladder tumor as well as a left ureteral distal tumor status post laser ablation and TURBT two months ago. The patient developed an acute bleed two days ago, for which he was admitted to [facility]. Hand irrigation as well as continuous bladder irrigation was attempted; however, unsuccessful in removing all his clots and he continued to bleed. Therefore the patient was taken to the operating room today for clot evacuation and fulguration of bleeders. DESCRIPTION OF THE PROCEDURE IN DETAIL: After prior informed consent was obtained, the patient was brought to the operating room and remained supine on the operating room table. Bilateral lower extremity SCDs were in place. The patient was then placed under general anesthesia. The patient was then placed in the lithotomy position and prepped and draped in the standard surgical fashion. After a proper time out was completed, the scope was inserted through the urethra and into the bladder. On imaging the bladder, immediately noted was a large bladder clot that took up the space of the majority of the bladder. At this point, the resectoscope was inserted and the resectoscope loop was then used to cauterize and cut the clot into multiple small pieces. The Ellik was used to evacuate all of these clot fragments. This took an extensive amount of time as the clot was rather large and adherent to the bladder wall. After removal of all clot, there was a significant bleed noted at the left anterolateral portion of the bladder wall, which appeared to be the previous site of the TURBT. This was then fulgurated extensively in order to ensure no further bleeding. The prostate also was noted to be obstructing and oozing blood and therefore a TURP was completed with removal of the obstructing prostate tissue and fulguration of all bleeders. At this point, the remainder of the bladder was inspected with no other abnormalities or lesions noted throughout. All bleeders were fulgurated adequately. Therefore the left ureteral stent was then grabbed and removed from the bladder. Again, the bladder was inspected with no other bleeding or clots noted in the bladder. Therefore the scope was removed and a 22-Chinese three-way urethral catheter was then placed and hooked up to continuous bladder irrigation. The patient tolerated the procedure well. There were no complications. He was awoken from anesthesia and taken to the post-anesthesia care unit in stable condition. DISPOSITION: The patient will remain inpatient for observation with continuous bladder irrigation overnight tonight and slowly titrated off tomorrow with plans for potential discharge in the next day or so with followup in the clinic shortly afterwards. Patient to remain with dawson catheter until outpatient follow-up. Carmen Abdullahi M.D. PORTER/DHARMESH /7:09 PM /8:01 PM MARGO
[2016-06-17 21:12] LABS: HEMATOCRIT 24.6 % (39.0-51.0); REVIEW FLAG FINAL
[2016-06-17] MEDS: GABAPENTIN 100 MG CAP PO SCH (21:16)
[2016-06-17] MEDS: PRAVASTATIN SOD 40 MG TAB PO SCH (21:16)
[2016-06-18 00:26] VITALS: BP 116/55; PULSE 95; RESP 20; TEMP 98.6; O2SAT 95
[2016-06-18] MEDS: OXYBUTYNIN CHLORIDE 5 MG TAB PO SCH ×2 (04:31→14:58)
[2016-06-18 05:13] VITALS: BP 97/52; PULSE 68; RESP 20; TEMP 98.2; O2SAT 94
[2016-06-18 06:48] LABS: BICARBONATE 26.1 MEQ/L (21.0-32.0); MAGNESIUM 2.2 MG/DL (1.5-2.5); POTASSIUM 4.9 MEQ/L (3.5-5.1)
[2016-06-18 07:06] LABS: AUTOMATED NEUTROPHIL # 9.2 TH/MM3 (1.8-7.7); BASOPHIL % 0.1 % (0.0-2.0); HEMATOCRIT 24.7 % (39.0-51.0); HEMO FLAGS DIFF FINAL; LYMPH % 4.1 % (9.0-44.0); LYMPHOCYTE # 0.4 TH/MM3 (1.0-4.8); MEAN CORPUSCULAR HEMOGLOBIN 33.2 PG (27.0-34.0); MEAN CORPUSCULAR HGB CONC 33.6 % (32.0-36.0); MONO % 3.6 % (0.0-8.0); NEUT % 92.2 % (16.0-70.0); PLATELET COUNT 107 TH/MM3 (150-450); RED BLOOD COUNT 2.49 MIL/MM3 (4.50-5.90); RED CELL DISTRIBUTION WIDTH 20.1 % (11.6-17.2); WHITE BLOOD COUNT 9.9 TH/MM3 (4.0-11.0)
[2016-06-18 07:18] VITALS: BP 131/63; PULSE 71; RESP 18; TEMP 97.9; O2SAT 97
[2016-06-18] MEDS: LISINOPRIL 5 MG TAB PO SCH (07:54)
[2016-06-18] MEDS: PANTOPRAZOLE SOD 40 MG DELAYED RELEASE TAB PO SCH (07:54)
[2016-06-18] MEDS: ISOSORBIDE MONONITRATE 20 MG TAB PO SCH (07:54)
[2016-06-18] MEDS: METOPROLOL SUCCINATE 50 MG EXTENDED RELEASE TAB PO SCH (07:54)
[2016-06-18] MEDS: ALLOPURINOL 300 MG TAB PO SCH (07:54)
[2016-06-18] MEDS: FINASTERIDE 5 MG TAB PO SCH (07:55)
[2016-06-18] MEDS: BUMETANIDE 1 MG TAB PO SCH (07:55)
[2016-06-18] MEDS: SODIUM CHLORIDE 0.9% FLUSH 5 ML FLUSH FLUSH SCH (07:55)
[2016-06-18 08:00] VITALS: PULSE 66
--- NOTE | 2016-06-18 11:20 | HHI.PR ---
Subjective Remarks Follow-up for hematuria. The patient denies any further abdominal pain today. His urine has cleared up with CBI overnight. Titrating CBI. He states he already has an appointment to see his urologist in the office on Monday. Objective Vitals Vital Signs Date Time Temp Pulse Resp B/P Pulse Ox O2 Delivery O2 Flow Rate FiO2 06/18/16 08:00 66 06/18/16 07:18 97.9 71 18 131/63 97 06/18/16 05:13 98.2 68 20 97/52 94 06/18/16 00:26 98.6 95 20 116/55 95 06/17/16 20:09 98.4 84 20 134/62 98 06/17/16 19:45 65 16 149/69 95 Nasal Cannula 2 06/17/16 19:30 67 16 142/62 97 Nasal Cannula 2 06/17/16 19:19 99.7 75 16 144/75 96 Nasal Cannula 2 06/17/16 15:31 67 19 146/63 95 06/17/16 14:59 98.1 67 19 106/60 94 06/17/16 12:41 98.3 83 18 101/53 95 06/17/16 12:15 98.1 85 20 116/60 96 06/17/16 12:00 98.2 85 18 118/64 95 06/17/16 11:23 98.0 79 19 118/57 97 I/O 06/17/16 06/17/16 06/17/16 06/18/16 06/18/16 06/18/16 07:00 15:00 23:00 07:00 15:00 23:00 Intake Total 30225 ml 800 ml 484 ml Output Total 9600 ml 1500 ml 4100 ml 1850 ml 1050 ml Balance 4207 ml -1500 ml -3300 ml -1366 ml -1050 ml Intake Oral 240 ml IV Total 1567 ml 200 ml 484 ml Other 85400 ml 600 ml Output Urine Total 9600 ml 1500 ml 4100 ml 1850 ml 1050 ml Estimated Blood Loss 0 ml Other 0 ml Result Diagram: 06/18/16 0454 06/18/16 0454 Imaging Last Impressions Abdomen/Pelvis CT 06/16/16 0000 Signed Impressions: Service Date/Time: June 02:16 - CONCLUSION: 1. Blood filling the urinary bladder as well as the collecting system of the left kidney. A left ureteral stent is present with mild hydronephrosis and hydroureter. The hydronephrosis and hydroureter is less pronounced than the prior study. There is an inflammatory component to the urinary bladder. This is a new finding. 2. Small volume of ascites. 3. Cholelithiasis. 4. Umbilical hernia containing fat. Denny Linda Jr., MD Objective Remarks GENERAL: Well-developed well-nourished. In no acute distress. SKIN: Warm and dry. No lesions noted. HEENT: Normocephalic. Pupils equal and round. Mucous membranes pink and moist. CARDIOVASCULAR: Regular rate and rhythm. No murmur appreciated. RESPIRATORY: No accessory muscle use. Clear to auscultation. Breath sounds equal bilaterally. GASTROINTESTINAL: Abdomen soft, non-tender, nondistended. Bowel sounds x4. : Lobo catheter in place with clear yellow urine. MUSCULOSKELETAL: No obvious deformities. No clubbing or cyanosis. No edema. NEUROLOGICAL: Awake and alert. No focal neurological deficits. Moves upper and lower extremities spontaneously. Normal speech. PSYCHIATRIC: Appropriate mood and affect; insight and judgment normal. Date of Insertion: Jun 15, 2016 A/P Problem List: (1) Josiah hematuria ICD Code: R31.0 Status: Acute (2) Leukocytosis ICD Code: D72.829 Status: Resolved Assessment and Plan 81-year-old male with history of bladder cancer, prostate cancer, CAD s/p CABG, arrhythmia on Xarelto with pacemaker in place, PVD, CKD, stage III, presents with hematuria x1day Hematuria: with Bladder Cancer s/p cystoscopy with bladder tumor resections x2 with Dr. Bell. Holding patient's Xarelto, resume when okay with urology. Consulted urologist Dr. Bell, no improvement on CBI, performed cystoscopy 06/17 with clot evacuation, fulguration of bleeders, TURP, stent removal. Urine clearing, follow-up urology recommendations. Acute anemia from blood loss: Secondary to the above. Hemoglobin trended down 11.9 -> 9 -> 7.9. Transfused 1 unit PRBC. Hemoglobin stable overnight 8.4/ 8.3. Macrocytosis, B12 and folate within normal limits. No further bleeding. Possible UTI: Abdominal and pelvis CT showed an inflammatory component to the urinary bladder. On empiric IV Rocephin. Follow up urine culture. CAD s/p CABG, Arrhythmia with Pacemaker: chronic, stable, holding Xarelto with hematuria as above. Continue home meds. CKD, stage III: chronic, appears at baseline. Avoid further nephrotoxins. DVT Prophylaxis: holding Xarelto with hematuria Written by Daquan Cordova, acting as scribe for Dr. Davison on 06/18/16 at 11:19. The documentation accurately reflects the work performed [id number] by me on at [id number] Discharge Planning Possible discharge later today patient remained stable and is cleared by urology. May need [facility] nursing persistence with Lobo maintenance. 1400 discussed with urology, Dr. Bell, and the patient. If urine remains clear today, can discharge home for follow-up next week. Urology recommends holding anticoagulation until outpatient follow-up appointment this week. Urology recommends continuing the patient on Bactrim for possible urine infection. Daquan Cordova Jun 18, 2016 11:20 Ameya Davison MD Jun 18, 2016 16:00
[2016-06-18 11:26] VITALS: BP 109/56; PULSE 18; RESP 18; TEMP 98.1; O2SAT 96
[2016-06-18] MEDS: cefTRIAXone INJ 1,000 MG in SODIUM CHLORIDE 0.9% INJ 100 ML IV SCH (12:09)
[2016-06-18] MEDS: SODIUM CHLOR 0.9% 1000 ML INJ 1,000 ML IV SCH (12:09)
[2016-06-18] MEDS ORDERED: BACT800T5 PO (14:00)
--- NOTE | 2016-06-18 14:02 | HHI.FF ---
Face to Face Verification Diagnosis: (1) Afib (2) Josiah hematuria (3) Obstructive uropathy (4) Transitional cell carcinoma Home Health Nursing Order: Medical education Signs/symptoms of disease process Medication education-adverse effect Nursing assessment with vital signs Lobo catheter maintenance I have seen patient Raleigh Paris on 06/18/16. My clinical findings support the need for the requested home health care services because: Limited ability to care for self Need for psychosocial assistance Infection w/ risk of complications I certify that my clinical findings support that this patient is homebound because: Need for psychosocial assistance Poor cardiac reserve Daquan Cordova Jun 18, 2016 14:02
--- NOTE | 2016-06-18 14:03 | HHI.PR ---
Subjective Remarks Doing well. CBI on overnight, clear urine, no clots. No pain. No fevers Objective Vital Signs Vital Signs Date Time Temp Pulse Resp B/P Pulse Ox O2 Delivery O2 Flow Rate FiO2 06/18/16 11:26 98.1 18 18 109/56 96 06/18/16 08:00 66 06/18/16 07:18 97.9 71 18 131/63 97 06/18/16 05:13 98.2 68 20 97/52 94 06/18/16 00:26 98.6 95 20 116/55 95 06/17/16 20:09 98.4 84 20 134/62 98 06/17/16 19:45 65 16 149/69 95 Nasal Cannula 2 06/17/16 19:30 67 16 142/62 97 Nasal Cannula 2 06/17/16 19:19 99.7 75 16 144/75 96 Nasal Cannula 2 06/17/16 15:31 67 19 146/63 95 06/17/16 14:59 98.1 67 19 106/60 94 I/O 06/17/16 06/17/16 06/17/16 06/18/16 06/18/16 06/18/16 07:00 15:00 23:00 07:00 15:00 23:00 Intake Total 40977 ml 800 ml 484 ml Output Total 9600 ml 1500 ml 4100 ml 1850 ml 2750 ml Balance 4207 ml -1500 ml -3300 ml -1366 ml -2750 ml Intake Oral 240 ml IV Total 1567 ml 200 ml 484 ml Other 63815 ml 600 ml Output Urine Total 9600 ml 1500 ml 4100 ml 1850 ml 2750 ml Estimated Blood Loss 0 ml Other 0 ml Result Diagram: 06/18/16 0454 06/18/16 0454 Imaging Last 48 hours Impressions Abdomen/Pelvis CT 06/16/16 0000 Signed Impressions: Service Date/Time: June 02:16 - CONCLUSION: 1. Blood filling the urinary bladder as well as the collecting system of the left kidney. A left ureteral stent is present with mild hydronephrosis and hydroureter. The hydronephrosis and hydroureter is less pronounced than the prior study. There is an inflammatory component to the urinary bladder. This is a new finding. 2. Small volume of ascites. 3. Cholelithiasis. 4. Umbilical hernia containing fat. Denny Linda Jr., MD Objective Remarks NAD, AAOx3 Resp NL Ab S/NT/ND : Dawson catheter with CBI low rate, no clots, light pink to clear urine noted Assessment and Plan Problem List: (1) Josiah hematuria ICD Code: R31.0 Status: Acute (2) Transitional cell carcinoma ICD Code: C68.9 Status: Acute (3) Afib ICD Code: I48.91 Status: Acute (4) CAD (coronary artery disease) ICD Code: I25.10 Status: Acute Assessment and Plan -CBI turned off; Urine remains light pink to clear -Observe with CBI off for few hours. If remains light pink color may discharge with dawson in place. -Patient to follow-up in clinic next week for follow-up and catheter removal -Continue antibiotics as outpatient -Please call with questions Ry Bell MD Jun 18, 2016 14:03
--- NOTE | 2016-06-18 15:49 | HHI.DS ---
Dr. Arabella Martini Discharge Summary Admission Date Jun 16, 2016 at 03:39 Discharge Date: Jun 18, 2016 Admitting Diagnosis hematuria, moderate obstruction, chronic kidney disease (1) Josiah hematuria ICD Code: R31.0 Diagnosis: Principal (2) Leukocytosis ICD Code: D72.829 Diagnosis: Secondary (3) Obstructive uropathy ICD Code: N13.9 Diagnosis: Principal (4) Afib ICD Code: I48.91 Diagnosis: Secondary (5) Transitional cell carcinoma ICD Code: C68.9 Diagnosis: Secondary Procedures cystoscopy 06/17 with clot evacuation, fulguration of bleeders, TURP, stent removal Brief History - From Admission 81 y/o male with a history of prostate cancer presented to the ED with complaints of hematuria for one day. Patient states it was very difficult for him to urinate today and when he did, he had a large amount of blood in his urine with clots. Associated symptoms include defuse tightening lower abdominal pain. In January patient was admitted for a similar situation. In January he underwent ureteral stent placement. He currently denies any chest pain, sob, fever or chills. Per ED physician, patient had a large amount of clots when CBI was first started. CBC/BMP: 06/18/16 0454 06/18/16 0454 Significant Findings Laboratory Tests Test 06/16/16 06/16/16 06/17/16 06/17/16 02:40 13:00 08:53 20:13 White Blood Count 12.4 TH/MM3 (4.0-11.0) Red Blood Count 3.45 MIL/MM3 2.26 MIL/MM3 (4.50-5.90) (4.50-5.90) Hemoglobin 11.9 GM/DL 9.0 GM/DL 7.9 GM/DL 8.4 GM/DL (13.0-17.0) (13.0-17.0) (13.0-17.0) (13.0-17.0) Hematocrit 36.2 % 27.1 % 23.7 % 24.6 % (39.0-51.0) (39.0-51.0) (39.0-51.0) (39.0-51.0) Mean Corpuscular Volume 104.9 FL 105.1 FL (80.0-100.0) (80.0-100.0) Mean Corpuscular Hemoglobin 34.4 PG 35.0 PG (27.0-34.0) (27.0-34.0) Neutrophils (%) (Auto) 91.0 % 80.1 % (16.0-70.0) (16.0-70.0) Lymphocytes (%) (Auto) 4.0 % 8.5 % (9.0-44.0) (9.0-44.0) Neutrophils # (Auto) 11.3 TH/MM3 7.9 TH/MM3 (1.8-7.7) (1.8-7.7) Lymphocytes # (Auto) 0.5 TH/MM3 0.8 TH/MM3 (1.0-4.8) (1.0-4.8) Prothrombin Time 16.0 SEC (9.8-11.6) Blood Urea Nitrogen 34 MG/DL (7-18) 29 MG/DL (7-18) Creatinine 2.00 MG/DL 1.56 MG/DL (0.60-1.30) (0.60-1.30) Estimat Glomerular Filtration 32 ML/MIN (>89) 43 ML/MIN (>89) Rate Random Glucose 171 MG/DL (74-106) Platelet Count 124 TH/MM3 (150-450) Monocytes (%) (Auto) 9.7 % (0.0-8.0) Monocytes # (Auto) 1.0 TH/MM3 (0-0.9) Chloride Level 109 MEQ/L (98-107) Calcium Level 8.1 MG/DL (8.5-10.1) Folate GREATER THAN 20.0 NG/ML (3.1-17.5) Test 06/18/16 04:54 Red Blood Count 2.49 MIL/MM3 (4.50-5.90) Hemoglobin 8.3 GM/DL (13.0-17.0) Hematocrit 24.7 % (39.0-51.0) Red Cell Distribution Width 20.1 % (11.6-17.2) Platelet Count 107 TH/MM3 (150-450) Neutrophils (%) (Auto) 92.2 % (16.0-70.0) Lymphocytes (%) (Auto) 4.1 % (9.0-44.0) Neutrophils # (Auto) 9.2 TH/MM3 (1.8-7.7) Lymphocytes # (Auto) 0.4 TH/MM3 (1.0-4.8) Chloride Level 109 MEQ/L (98-107) Blood Urea Nitrogen 31 MG/DL (7-18) Creatinine 1.69 MG/DL (0.60-1.30) Estimat Glomerular Filtration 39 ML/MIN (>89) Rate Random Glucose 134 MG/DL (74-106) Calcium Level 8.2 MG/DL (8.5-10.1) Imaging Last Impressions Abdomen/Pelvis CT 06/16/16 0000 Signed Impressions: Service Date/Time: June 02:16 - CONCLUSION: 1. Blood filling the urinary bladder as well as the collecting system of the left kidney. A left ureteral stent is present with mild hydronephrosis and hydroureter. The hydronephrosis and hydroureter is less pronounced than the prior study. There is an inflammatory component to the urinary bladder. This is a new finding. 2. Small volume of ascites. 3. Cholelithiasis. 4. Umbilical hernia containing fat. Denny Linda Jr., MD PE at Discharge GENERAL: Well-developed well-nourished. In no acute distress. SKIN: Warm and dry. No lesions noted. HEENT: Normocephalic. Pupils equal and round. Mucous membranes pink and moist. CARDIOVASCULAR: Regular rate and rhythm. No murmur appreciated. RESPIRATORY: No accessory muscle use. Clear to auscultation. Breath sounds equal bilaterally. GASTROINTESTINAL: Abdomen soft, non-tender, nondistended. Bowel sounds x4. : Lobo catheter in place with clear yellow urine. MUSCULOSKELETAL: No obvious deformities. No clubbing or cyanosis. No edema. NEUROLOGICAL: Awake and alert. No focal neurological deficits. Moves upper and lower extremities spontaneously. Normal speech. PSYCHIATRIC: Appropriate mood and affect; insight and judgment normal. Pt update on day of discharge discussed with urology, Dr. Bell, and the patient. If urine remains clear today, can discharge home for follow-up next week. Urology recommends holding anticoagulation until outpatient follow-up appointment this week. Urology recommends continuing the patient on Bactrim for possible urine infection. D/W Dr. Davison and RN. Hospital Course 81-year-old male with history of bladder cancer, prostate cancer, CAD s/p CABG, arrhythmia on Xarelto with pacemaker in place, PVD, CKD, stage III, presents with hematuria x1day Hematuria: with Bladder Cancer s/p cystoscopy with bladder tumor resections x2 with Dr. Bell. Holding patient's Xarelto, resume when okay with urology. Consulted urologist Dr. Bell, no improvement on CBI, performed cystoscopy 06/17 with clot evacuation, fulguration of bleeders, TURP, stent removal. Urine clearing, follow-up with urology as outpatient. [facility] nursing arranged for Lobo catheter care. Acute anemia from blood loss: Secondary to the above. Hemoglobin trended down 11.9 -> 9 -> 7.9. Transfused 1 unit PRBC. Hemoglobin stable overnight 8.4/ 8.3. Macrocytosis, B12 and folate within normal limits. No further bleeding. Possible UTI: Abdominal and pelvis CT showed an inflammatory component to the urinary bladder. S/P empiric IV Rocephin. Urine culture pending with no growth to date. Continue Bactrim per urology recommendations. CAD s/p CABG, Arrhythmia with Pacemaker: chronic, stable. Holding Xarelto with hematuria as above, resume when ok with urology, followup as outpatient. Continue home meds. CKD, stage III: chronic, appears at baseline. Avoid further nephrotoxins. Pt Condition on Discharge: Stable Discharge Disposition: Disch w/ Home Health Serv Discharge Time: > 30 minutes Discharge Instructions DIET: Follow Instructions for: Heart Healthy Diet Activities you can perform: Regular-No Restrictions Follow up Referrals: PCP Follow-up - 2-3 Days with Pietro Martini MD Urology - 06/23/16 with Ry Bell MD New Medications: Sulfamethoxazole-Trimethoprim (Bactrim DS) 800-160 Mg Tab 1 TAB PO BID Infection #14 Ref 0 TAB Continued Medications: Allopurinol (Allopurinol) 300 Mg Tab 300 MG PO DAILY Gout #30 Ref 0 TAB Bumetanide (Bumex) 0.5 Mg Tab 0.5 MG PO DAILY Ref 0 TAB Finasteride (Proscar) 5 Mg Tab 5 MG PO DAILY Do not crush. Manage Prostate Problems #30 Ref 0 TAB Gabapentin (Gabapentin) 100 Mg Cap 100-200 MG PO HS #30 Ref 0 CAP Isosorbide Mononitrate (Isosorbide Mononitrate) 10 Mg Tab 10 MG PO DAILY Prevent Chest Pain #60 TAB Lisinopril (Lisinopril) 5 Mg Tab 5 MG PO DAILY Blood Pressure Management #30 Ref 0 TAB Metoprolol Succinate ER 24 HR (Toprol XL) 50 Mg Tab 50 MG PO BID #30 Ref 0 TAB Pantoprazole (Pantoprazole) 40 Mg Tab 40 MG PO DAILY Reflux #30 Ref 0 TAB Potassium Chloride ER (K-Tab) 10 Meq Tab 10 MEQ PO DAILY Electrolyte Replacement #30 Ref 0 TAB Pravastatin (Pravastatin) 40 Mg Tab 40 MG PO HS Cholesterol Management #30 Ref 0 TAB Tramadol (Tramadol) 50 Mg Tab 50 MG PO Q6H PRN PAIN Ref 0 TAB Daquan Cordova Jun 18, 2016 15:49
== END 2016-06-18 16:57 | disposition home or self-care (01) ==
LOC: NEPE 23:22 → NEDA 06-16 03:39 → NEDH 06-16 07:33 → NEPGCP 06-16 14:04
PROVIDERS: ADMIT Internal Medicine; ATTEND Internal Medicine
DX: N40.1 Benign prostatic hyperplasia with lower urinary tract symptoms (principal); R33.9 Retention of urine, unspecified; N32.89 Other specified disorders of bladder; C68.9 Malignant neoplasm of urinary organ, unspecified; C67.9 Malignant neoplasm of bladder, unspecified; D62 Acute posthemorrhagic anemia; N18.3 Chronic kidney disease, stage 3 (moderate); D72.829 Elevated white blood cell count, unspecified; D75.89 Other specified diseases of blood and blood-forming organs; I12.9 Hypertensive chronic kidney disease with stage 1 through stage 4 chronic kidney disease, or unspecified chronic kidney disease; N13.30 Unspecified hydronephrosis; E11.22 Type 2 diabetes mellitus with diabetic chronic kidney disease; I25.10 Atherosclerotic heart disease of native coronary artery without angina pectoris; I48.91 Unspecified atrial fibrillation; I73.9 Peripheral vascular disease, unspecified; Z79.01 Long term (current) use of anticoagulants; K80.20 Calculus of gallbladder without cholecystitis without obstruction; K90.0 Celiac disease; Z95.0 Presence of cardiac pacemaker; Z95.1 Presence of aortocoronary bypass graft; Z92.3 Personal history of irradiation; Z87.891 Personal history of nicotine dependence
CPT/HCPCS: 00914; 36430; 51702; 52001; 52601; 74176; 80048; 82607; 82746; 83735; 85014; 85018; 85025; 85610; 86850; 86900; 86901; 86920; 87086; 97161; 99284; G0378; G8987; G8988; J0131; J0696; J1940; J2370; J2405; J3010; J7030; J7050; P9016

== ENCOUNTER 2016-06-19 17:58 | Inpatient (IN) | payer OTHER, MEDICARE ==
[~2016-06-19] VITALS: Ht 162.6 cm; Wt 64.5 kg
[~2016-06-19 17:58] MED LIST changes: +BACT800T5 PO; -BUME0.5T PO; +BUME1TAB25 PO; -CENTCHW3 PO; -CHOL50006 PO; -CO Q100C9 PO; +GABA100C4 PO; -IRONTAB4 PO; +ISOS10TA3 PO; -ISOS20TA38 PO; +K-TA10TA PO; -KCL10C PO; -LISI-357 PO; +LISI-519 PO; -MAGN400T20 PO; -METO100T9 PO; -OCUVTAB4 PO; +PANT40TA3 PO; -POLY119S PO; -PRAV20 PO; +PRAV40TA2 PO; +PROS5TAB PO; -PROS5TAB2 PO; -PROT40TA PO; +TOPR50TA PO; -TRAM100T19 PO; +TRAM50TA PO; -ZINC30CA PO
[2016-06-19 18:02] VITALS: BP 139/64; PULSE 78; RESP 20; TEMP 97.7; O2SAT 98
--- NOTE | 2016-06-19 18:39 | PD ---
Physical Exam Date Seen by Provider: Jun 19, 2016 Narrative Patient presents with urinary retention. He has a Lobo catheter. He has a lot of bleeding. His abdomen has suprapubic tenderness and swelling. Data Data Last Documented VS Vital Signs Date Time Temp Pulse Resp B/P Pulse Ox O2 Delivery O2 Flow Rate FiO2 06/19/16 18:02 97.7 78 20 139/64 98 Room Air [facility] Supervised Visit with AROLDO: Yes Shanique Solorio MD Jun 19, 2016 18:39
[2016-06-19] MEDS ORDERED: SODIUM CHLOR 0.9% 1000 ML INJ 1,000 ML IV SCH (18:55)
[2016-06-19] MEDS ORDERED: SODIUM CHLORIDE 0.9% FLUSH 5 ML FLUSH IVF PRN ×2 (19:00)
--- NOTE | 2016-06-19 19:07 | PD ---
HPI Chief Complaint: Complaint Time Seen by Provider: 19:02 Travel History International Travel<30 days: No Contact w/Intl Traveler<30days: No Traveled to known affect area: No History of Present Illness HPI 81-year-old male with history of hypertension, A. fib,obstructive uropathy on Xarelto presents to the ED for evaluation of 6 hour history of anuria. The patient underwent TURBT and ureteral stent and clot removal with Dr. Bell on 06/17 and was discharged yesterday. 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 He states that since approximately 1 PM he has had very scant urine output. Patient endorses drinking "plenty" of bottles of water in the interim. He also complains of abdominal distention and tenderness. Denies fever, chills, dizziness, nausea or vomiting. Patient states he had a normal bowel movement this morning. 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) Cardiovascular Problems: Yes (A FIB, CAD, HTN) Chemotherapy: Yes (PROSTATE CA) Diabetes: Yes Patient Takes Glucophage: No Diminished Hearing: No Endocrine: No Gastrointestinal Disorders: Yes (CELIAC DISEASE) Genitourinary: Yes (BLOCKAGE) Hepatitis: No Hiatal Hernia: Yes Hypertension: Yes Immune Disorder: No Musculoskeletal: No Neurologic: No Psychiatric: No Reproductive: No Respiratory: No Thyroid Disease: No Past Surgical History Abdominal Surgery: No AICD: No Cardiac Surgery: Yes (PACEMAKER) Ear Surgery: No Endocrine Surgery: No Eye Surgery: Yes (CATARACT RIGHT EYE) Genitourinary Surgery: Yes (SCOPED) Gynecologic Surgery: No Joint Replacement: No Oral Surgery: No Pacemaker: Yes Thoracic Surgery: Yes (OPEN HEART) Social History Alcohol Use: No Tobacco Use: No Substance Use: No Allergies-Medications (Allergen,Severity, Reaction): Coded Allergies: No Known Allergies (Unverified , 06/19/16) Reported Meds & Prescriptions Reported Meds & Active Scripts Active Bactrim DS (Sulfamethoxazole-Trimethoprim) 800-160 Mg Tab 1 Tab PO BID Reported Tramadol (Tramadol HCl) 50 Mg Tab 50 Mg PO Q6H PRN K-Tab (Potassium Chloride) 10 Meq Tab 10 Meq PO DAILY Proscar (Finasteride) 5 Mg Tab 5 Mg PO DAILY Do not crush. Bumex (Bumetanide) 0.5 Mg Tab 0.5 Mg PO DAILY Allopurinol 300 Mg Tab 300 Mg PO DAILY Gabapentin 100 Mg Cap 100-200 Mg PO HS Isosorbide Mononitrate 10 Mg Tab 10 Mg PO DAILY Pantoprazole (Pantoprazole Sodium) 40 Mg Tab 40 Mg PO DAILY Lisinopril 5 Mg Tab 5 Mg PO DAILY Toprol XL (Metoprolol Succinate) 50 Mg Tab 50 Mg PO BID Pravastatin 40 Mg Tab 40 Mg PO HS Review of Systems Except as stated in HPI: all other systems reviewed are Neg Physical Exam Narrative GENERAL: Well-nourished, well-developed nontoxic appearing white male in no acute distress. SKIN: Warm and dry. HEAD: Normocephalic. EYES: No scleral icterus. No injection or drainage. NECK: Supple, trachea midline. No JVD or lymphadenopathy. CARDIOVASCULAR: Regular rate and rhythm without murmurs, gallops, or rubs. RESPIRATORY: Breath sounds equal bilaterally. No accessory muscle use. GASTROINTESTINAL: Abdomen diffusely tender, distended. Active bowel sounds. There is a small umbilical hernia, easily reducible. There are bilateral inguinal hernias, right larger than left. GENITOURINARY: Circumcised. Testes descended bilaterally without evidence of rotation. No lesions or erythema. No urethral discharge. Mild edema of the penile foreskin. There is an Lobo catheter in place with approximately 40 cc of light pink fluid in the collecting bag. MUSCULOSKELETAL: No cyanosis, or edema. BACK: Nontender without obvious deformity. No CVA tenderness. Data Data Last Documented VS Vital Signs Date Time Temp Pulse Resp B/P Pulse Ox O2 Delivery O2 Flow Rate FiO2 06/19/16 18:02 97.7 78 20 139/64 98 Room Air Orders Complete Blood Count With Diff (06/19/16 18:55) Comprehensive Metabolic Panel (06/19/16 18:55) Urinalysis - C+S If Indicated (06/19/16 18:55) Ct Abd/Pel W/O Iv Contrast (06/19/16 18:55) Sodium Chloride 0.9% Flush (Ns Flush) (06/19/16 19:00) Prothrombin Time / Inr (Pt) (06/19/16 18:55) Act Partial Throm Time (Ptt) (06/19/16 18:55) Iv Access Insert/Monitor (06/19/16 18:55) Ecg Monitoring (06/19/16 18:55) Oximetry (06/19/16 18:55) Sodium Chloride 0.9% Flush (Ns Flush) (06/19/16 19:00) Sodium Chlor 0.9% 1000 Ml Inj (Ns 1000 M (06/19/16 18:55) Bladder/Catheter Irrigation (06/19/16 19:07) Bladder Scan PRN (06/19/16 19:07) Urine Culture (06/19/16 19:10) Type And Screen (06/19/16 20:02) Sodium Chlor 0.9% 250 Ml Inj (Ns 250 Ml (06/19/16 20:15) Calcium Carbonate (Oscal) (06/19/16 20:30) Labs Laboratory Tests Test 06/19/16 19:10 White Blood Count 9.6 TH/MM3 Red Blood Count 2.45 MIL/MM3 Hemoglobin 8.3 GM/DL Hematocrit 24.4 % Mean Corpuscular Volume 99.7 FL Mean Corpuscular Hemoglobin 33.9 PG Mean Corpuscular Hemoglobin 34.0 % Concent Red Cell Distribution Width 19.2 % Platelet Count 137 TH/MM3 Mean Platelet Volume 8.4 FL Neutrophils (%) (Auto) 80.1 % Lymphocytes (%) (Auto) 7.7 % Monocytes (%) (Auto) 9.1 % Eosinophils (%) (Auto) 2.6 % Basophils (%) (Auto) 0.5 % Neutrophils # (Auto) 7.7 TH/MM3 Lymphocytes # (Auto) 0.7 TH/MM3 Monocytes # (Auto) 0.9 TH/MM3 Eosinophils # (Auto) 0.3 TH/MM3 Basophils # (Auto) 0.0 TH/MM3 CBC Comment DIFF FINAL Differential Comment Prothrombin Time 10.9 SEC Prothromb Time International 1.0 RATIO Ratio Activated Partial 26.8 SEC Thromboplast Time Urine Color LIGHT-RED Urine Turbidity HAZY Urine pH 6.5 Urine Specific [place] 1.013 Urine Protein 300 mg/dL Urine Glucose (UA) NEG mg/dL Urine Ketones NEG mg/dL Urine Occult Blood LARGE Urine Nitrite NEG Urine Bilirubin NEG Urine Urobilinogen LESS THAN 2.0 MG/DL Urine Leukocyte Esterase TRACE Urine RBC /hpf Urine WBC 32 /hpf Urine Squamous Epithelial <1 /hpf Cells Urine Bacteria OCC /hpf Urine Hyaline Casts 3 /lpf Urine Mucus FEW /lpf Microscopic Urinalysis Comment CULTURE INDICATED Sodium Level 137 MEQ/L Potassium Level 4.6 MEQ/L Chloride Level 103 MEQ/L Carbon Dioxide Level 22.4 MEQ/L Anion Gap 12 MEQ/L Blood Urea Nitrogen 39 MG/DL Creatinine 2.15 MG/DL Estimat Glomerular Filtration 30 ML/MIN Rate Random Glucose 90 MG/DL Calcium Level 8.1 MG/DL Total Bilirubin 0.3 MG/DL Aspartate Amino Transf 49 U/L (AST/SGOT) Alanine Aminotransferase 36 U/L (ALT/SGPT) Alkaline Phosphatase 89 U/L Total Protein 6.2 GM/DL Albumin 3.0 GM/DL MDM Medical Decision Making Medical Screen Exam Complete: Yes Emergency Medical Condition: Yes Medical Record Reviewed: Yes (patient was anemic, received 1 unit of packed red blood cells before discharge yesterday.) Differential Diagnosis Urinary obstruction versus urinary retention versus acute renal failure versus postoperative uropathy versus other Narrative Course 81-year-old male with history of hypertension, A. fib, obstructive uropathy on Xarelto presents to the ED for evaluation of 6 hour history of anuria. The patient underwent TURBT and with ureteral stent and clot removal with Dr. Bell on 06/17 and was discharged yesterday. Probably 2800 mL's pink urine collected overnight. Scant urine output since 1 PM. Complains of abdominal distention and tenderness. Denies fever, chills, dizziness, nausea or vomiting. Endorses normal bowel movement this morning. Vitals reviewed. Physical exam reveals nontoxic-appearing white male in no acute distress. The abdomen is distended, diffusely tender. There is a small umbilical hernia and bilateral inguinal hernias. There is a small amount of edema of the foreskin. There is a Lobo catheter in place. Approximately 20-25 cc of light pink fluid in the collecting bag. The Lobo catheter was flushed. Fluid passes easily into and out of the catheter. Bladder scan reveals 0 mL's of fluid in the bladder. IV was established. Patient was placed on continuous monitoring. She was administered a liter of IV fluids. CBC: WBCs 9.6. Hemoglobin 8.3 CMP: BUN 39. Creatinine 2.15. Calcium 8.1. UA: Light red, hazy, large occult blood, trace leukocyte esterase, 32 WBCs, occasional bacteria. Culture pending. Coags: INR is 1.0. Abdominal/pelvis CT: Pronounced left hydronephrosis and hydroureter with perivesicular injury and inflammation tracking into the right inguinal canal. Type and screen was ordered. Recheck reveals the patient has received approximately 300 mL of fluid. There is 100-150 mL to light pink fluid in the collecting bag. Calcium was supplemented orally. Patient is taking Bactrim for UTI treatment. Patient's hemoglobin was 8.3 on previous disposition. Creatinine within patient's baseline range. Call placed to Dr. Bell. He requested a cystogram be performed and called with the results. Concern for bladder perforation. He thinks that the hydronephrosis and hydroureter may be chronic. Cystogram ordered. I received a call from the radiologist stating that they're unable to perform this test emergently. Care of this patient is transferred to Kaleigh FERGUSON. Please see her notes for disposition. Diagnosis Primary Impression: Obstructive uropathy Additional Impressions: Hydroureteronephrosis Anemia Qualified Code: D64.9 - Anemia, unspecified type Hypocalcemia SRIDHAR (acute kidney injury) Arlin Wick Jun 19, 2016 19:07
[2016-06-19 19:31] LABS: BACTERIA, URINE OCC /hpf; BLOOD, URINE LARGE (NEG); COMMENT (UR) CULTURE INDICATED; CULTURE IF INDICATED CULTURE INDICATED; GLUCOSE,URINE NEG (NEG); HYALINE CAST, URINE 3 /lpf (RARE); KETONE, URINE NEG (NEG); MUCUS URINE FEW /lpf (OCC); NITRITE,URINE NEG (NEG); PH, URINE 6.5 (5.0-8.5); SQUAMOUS EPITHELIAL CELL URINE <1 /hpf (0-5); URINE COLOR LIGHT-RED (YELLW/STRAW)
[2016-06-19 19:42] LABS: APTT (PATIENT) 26.8 SEC (24.3-30.1); PROTHROMBIN TIME - PATIENT 10.9 SEC (9.8-11.6)
[2016-06-19 19:51] LABS: ALKALINE PHOSPHATASE 89 U/L (45-117); ALT (GPT) 36 U/L (12-78); ANION GAP 12 MEQ/L (5-15); AST (GOT) 49 U/L (15-37); BICARBONATE 22.4 MEQ/L (21.0-32.0); BLOOD UREA NITROGEN 39 MG/DL (7-18); CHLORIDE 103 MEQ/L (98-107); GLOMERULAR FILTRATION RATE 30 ML/MIN (>89); POTASSIUM 4.6 MEQ/L (3.5-5.1); SODIUM (NA) 137 MEQ/L (136-145); TOTAL BILIRUBIN ADULT 0.3 MG/DL (0.2-1.0)
--- NOTE | 2016-06-19 19:52 | RADRPT ---
EXAM DATE/TIME: 06/19/2016 19:22 [facility] COMPARISON: CT ABDOMEN & PELVIS W/O CONTRAST, June 16, 2016, 2:16. INDICATIONS : Abdomen distention. ORAL CONTRAST: No oral contrast ingested. RADIATION DOSE: 9.96 CTDIvol (mGy) MEDICAL HISTORY : Carcinoma, prostate. Chemotherapy. SURGICAL HISTORY : None. ENCOUNTER: Initial ACUITY: 1 day PAIN SCALE: 5/10 LOCATION: abdomen TECHNIQUE: Volumetric scanning of the abdomen and pelvis was performed. Using automated exposure control and ad justment of the mA and/or kV according to patient size, radiation dose was kept as low as reasonably achievable to obtain optimal diagnostic quality images. FINDINGS: LOWER LUNGS: The visualized lower lungs are clear. LIVER: Homogeneous density without lesion. There is no dilation of the biliary tree. Several small gallston es.. SPLEEN: Normal size without lesion. PANCREAS: Within normal limits. KIDNEYS: Pronounced left hydronephrosis. Moderate cortical thinning. Tiny hepatic cysts. Interval removal of a left ureteral stent. Right kidney is stable with no hydronephrosis. Small stable cysts. ADRENAL GLANDS: Within normal limits. VASCULAR: Patchy atherosclerotic calcification. Bilateral iliac stents. No evidence of aneurysm. BOWEL/MESENTERY: The stomach, small bowel, and colon demonstrate no acute abnormality. There is no free intraperitone al air or fluid. ABDOMINAL WALL: Stable small fat containing periumbilical hernia without evidence of incarceration. RETROPERITONEUM: There is no lymphadenopathy. BLADDER: Lobo catheter present. Mild anterior perivesical induration with bubbles of air, similar though slig htly less pronounced than on previous exam. Some of this process tracks into the right inguinal canal . REPRODUCTIVE: Prostate fiducials. INGUINAL: See above MUSCULOSKELETAL: Stable CONCLUSION: Interval removal of a left ureteral stent with persistent pronounced left hydronephrosis and hydroure ter. Evolving perivesical injury or inflammation Brian Olguin MD on June 19, 2016 at 19:42 Board Certified Radiologist. This report was verified electronically.
[2016-06-19 19:54] LABS: AUTOMATED NEUTROPHIL # 7.7 TH/MM3 (1.8-7.7); BASOPHIL % 0.5 % (0.0-2.0); EOSINOPHIL # 0.3 TH/MM3 (0-0.4); EOSINOPHIL % 2.6 % (0.0-4.0); HEMATOCRIT 24.4 % (39.0-51.0); HEMO FLAGS DIFF FINAL; LYMPH % 7.7 % (9.0-44.0); LYMPHOCYTE # 0.7 TH/MM3 (1.0-4.8); MEAN CELL VOLUME 99.7 FL (80.0-100.0); MEAN CORPUSCULAR HEMOGLOBIN 33.9 PG (27.0-34.0); MONO % 9.1 % (0.0-8.0); NEUT % 80.1 % (16.0-70.0); PLATELET COUNT 137 TH/MM3 (150-450); RED BLOOD COUNT 2.45 MIL/MM3 (4.50-5.90); RED CELL DISTRIBUTION WIDTH 19.2 % (11.6-17.2); WHITE BLOOD COUNT 9.6 TH/MM3 (4.0-11.0)
[2016-06-19] MEDS ORDERED: SODIUM CHLOR 0.9% 250 ML INJ 250 ML IV ONE (20:15)
[2016-06-19] MEDS ORDERED: CALCIUM CARBONATE 1.25 GM (CA 500 MG) TAB PO ONE (20:30)
[2016-06-19] MEDS ORDERED: MORPHINE SULFATE 4 MG/ML INJ IV PRN (21:30)
[2016-06-19] MEDS ORDERED: ACETAMINOPHEN 325 MG TAB PO PRN (21:30)
[2016-06-19] MEDS ORDERED: BISACODYL 10 MG SUPP PR PRN (21:30)
[2016-06-19] MEDS ORDERED: ONDANSETRON HCL 4 MG/2 ML VIAL IVP PRN (21:30)
[2016-06-19] MEDS ORDERED: ACETAMINOPHEN/HYDROcodone 325 MG/5 MG TAB PO PRN (21:30)
[2016-06-19] MEDS ORDERED: SODIUM CHLORIDE 0.9% FLUSH 5 ML FLUSH FLUSH PRN (21:30)
--- NOTE | 2016-06-19 21:33 | HHI.HP ---
[facility] Primary Care Physician Unknown Admission Diagnosis HYDRONEPHROSIS/HYDROURETER, POSSBILE BLADDER PERFORATION Diagnoses: Travel History International Travel<30 Days: No Contact w/Intl Traveler <30 Da: No Traveled to Known Affected Are: No Past Family Social History Allergies: Coded Allergies: No Known Allergies (Unverified , 06/19/16) Physical Exam Vital Signs Vital Signs Date Time Temp Pulse Resp B/P Pulse Ox O2 Delivery O2 Flow Rate FiO2 06/19/16 18:02 97.7 78 20 139/64 98 Room Air Physical Exam GENERAL: This is a well-nourished, well-developed patient, in no apparent distress. SKIN: No rashes, ecchymoses or lesions. Cool and dry. HEAD: Atraumatic. Normocephalic. No temporal or scalp tenderness. EYES: Pupils equal round and reactive. Extraocular motions intact. No scleral icterus. No injection or drainage. ENT: Nose without bleeding, purulent drainage or septal hematoma. Throat without erythema, tonsillar hypertrophy or exudate. Uvula midline. Airway patent. NECK: Trachea midline. No JVD or lymphadenopathy. Supple, nontender, no meningeal signs. CARDIOVASCULAR: Regular rate and rhythm without murmurs, gallops, or rubs. RESPIRATORY: Clear to auscultation. Breath sounds equal bilaterally. No wheezes , rales, or rhonchi. GASTROINTESTINAL: Abdomen soft, non-tender, nondistended. No hepato-splenomegaly , or palpable masses. No guarding. MUSCULOSKELETAL: Extremities without clubbing, cyanosis, or edema. No joint tenderness, effusion, or edema noted. No calf tenderness. Negative Homans sign bilaterally. NEUROLOGICAL: Awake and alert. Cranial nerves II through XII intact. Motor and sensory grossly within normal limits. Five out of 5 muscle strength in all muscle groups. Normal speech. Laboratory Laboratory Tests Test 06/19/16 06/19/16 19:10 20:10 White Blood Count 9.6 Red Blood Count 2.45 Hemoglobin 8.3 Hematocrit 24.4 Mean Corpuscular Volume 99.7 Mean Corpuscular Hemoglobin 33.9 Mean Corpuscular Hemoglobin 34.0 Concent Red Cell Distribution Width 19.2 Platelet Count 137 Mean Platelet Volume 8.4 Neutrophils (%) (Auto) 80.1 Lymphocytes (%) (Auto) 7.7 Monocytes (%) (Auto) 9.1 Eosinophils (%) (Auto) 2.6 Basophils (%) (Auto) 0.5 Neutrophils # (Auto) 7.7 Lymphocytes # (Auto) 0.7 Monocytes # (Auto) 0.9 Eosinophils # (Auto) 0.3 Basophils # (Auto) 0.0 CBC Comment DIFF FINAL Differential Comment Prothrombin Time 10.9 Prothromb Time International 1.0 Ratio Activated Partial 26.8 Thromboplast Time Urine Color LIGHT-RED Urine Turbidity HAZY Urine pH 6.5 Urine Specific [place] 1.013 Urine Protein 300 Urine Glucose (UA) NEG Urine Ketones NEG Urine Occult Blood LARGE Urine Nitrite NEG Urine Bilirubin NEG Urine Urobilinogen LESS THAN 2.0 Urine Leukocyte Esterase TRACE Urine RBC Urine WBC 32 Urine Squamous Epithelial <1 Cells Urine Bacteria OCC Urine Hyaline Casts 3 Urine Mucus FEW Microscopic Urinalysis Comment CULTURE INDICATED Sodium Level 137 Potassium Level 4.6 Chloride Level 103 Carbon Dioxide Level 22.4 Anion Gap 12 Blood Urea Nitrogen 39 Creatinine 2.15 Estimat Glomerular Filtration 30 Rate Random Glucose 90 Calcium Level 8.1 Total Bilirubin 0.3 Aspartate Amino Transf 49 (AST/SGOT) Alanine Aminotransferase 36 (ALT/SGPT) Alkaline Phosphatase 89 Total Protein 6.2 Albumin 3.0 Blood Type B POSITIVE Date/Time Procedure Status Source Growth 06/19/16 19:10 Urine Culture Received Urine Random Urine Pending Result Diagram: 06/19/16190906/19/161909 Kathy Barber MD Jun 19, 2016 21:33
--- NOTE | 2016-06-19 21:40 | PD ---
Physical Exam Date Seen by Provider: Jun 19, 2016 Narrative For full history and physical examination please see previous provider's notes. Care of patient was transferred to ca at the end of previous provider's shift. Patient was observed resting in bed comfortably no complaints of pain. His vital signs are stable Data Data Last Documented VS Vital Signs Date Time Temp Pulse Resp B/P Pulse Ox O2 Delivery O2 Flow Rate FiO2 06/19/16 18:02 97.7 78 20 139/64 98 Room Air Orders Complete Blood Count With Diff (06/19/16 18:55) Comprehensive Metabolic Panel (06/19/16 18:55) Urinalysis - C+S If Indicated (06/19/16 18:55) Ct Abd/Pel W/O Iv Contrast (06/19/16 18:55) Sodium Chloride 0.9% Flush (Ns Flush) (06/19/16 19:00) Prothrombin Time / Inr (Pt) (06/19/16 18:55) Act Partial Throm Time (Ptt) (06/19/16 18:55) Iv Access Insert/Monitor (06/19/16 18:55) Ecg Monitoring (06/19/16 18:55) Oximetry (06/19/16 18:55) Sodium Chloride 0.9% Flush (Ns Flush) (06/19/16 19:00) Sodium Chlor 0.9% 1000 Ml Inj (Ns 1000 M (06/19/16 18:55) Bladder/Catheter Irrigation (06/19/16 19:07) Bladder Scan PRN (06/19/16 19:07) Urine Culture (06/19/16 19:10) Type And Screen (06/19/16 20:02) Sodium Chlor 0.9% 250 Ml Inj (Ns 250 Ml (06/19/16 20:15) Calcium Carbonate (Oscal) (06/19/16 20:30) Diet Heart Healthy (06/19/16 Dinner) Admit Order (Ed Use Only) (06/19/16 21:27) Labs Laboratory Tests Test 06/19/16 06/19/16 19:10 20:10 White Blood Count 9.6 TH/MM3 Red Blood Count 2.45 MIL/MM3 Hemoglobin 8.3 GM/DL Hematocrit 24.4 % Mean Corpuscular Volume 99.7 FL Mean Corpuscular Hemoglobin 33.9 PG Mean Corpuscular Hemoglobin 34.0 % Concent Red Cell Distribution Width 19.2 % Platelet Count 137 TH/MM3 Mean Platelet Volume 8.4 FL Neutrophils (%) (Auto) 80.1 % Lymphocytes (%) (Auto) 7.7 % Monocytes (%) (Auto) 9.1 % Eosinophils (%) (Auto) 2.6 % Basophils (%) (Auto) 0.5 % Neutrophils # (Auto) 7.7 TH/MM3 Lymphocytes # (Auto) 0.7 TH/MM3 Monocytes # (Auto) 0.9 TH/MM3 Eosinophils # (Auto) 0.3 TH/MM3 Basophils # (Auto) 0.0 TH/MM3 CBC Comment DIFF FINAL Differential Comment Prothrombin Time 10.9 SEC Prothromb Time International 1.0 RATIO Ratio Activated Partial 26.8 SEC Thromboplast Time Urine Color LIGHT-RED Urine Turbidity HAZY Urine pH 6.5 Urine Specific [place] 1.013 Urine Protein 300 mg/dL Urine Glucose (UA) NEG mg/dL Urine Ketones NEG mg/dL Urine Occult Blood LARGE Urine Nitrite NEG Urine Bilirubin NEG Urine Urobilinogen LESS THAN 2.0 MG/DL Urine Leukocyte Esterase TRACE Urine RBC /hpf Urine WBC 32 /hpf Urine Squamous Epithelial <1 /hpf Cells Urine Bacteria OCC /hpf Urine Hyaline Casts 3 /lpf Urine Mucus FEW /lpf Microscopic Urinalysis Comment CULTURE INDICATED Sodium Level 137 MEQ/L Potassium Level 4.6 MEQ/L Chloride Level 103 MEQ/L Carbon Dioxide Level 22.4 MEQ/L Anion Gap 12 MEQ/L Blood Urea Nitrogen 39 MG/DL Creatinine 2.15 MG/DL Estimat Glomerular Filtration 30 ML/MIN Rate Random Glucose 90 MG/DL Calcium Level 8.1 MG/DL Total Bilirubin 0.3 MG/DL Aspartate Amino Transf 49 U/L (AST/SGOT) Alanine Aminotransferase 36 U/L (ALT/SGPT) Alkaline Phosphatase 89 U/L Total Protein 6.2 GM/DL Albumin 3.0 GM/DL Blood Type B POSITIVE MDM Medical Record Reviewed: Yes Supervised Visit with AROLDO: Yes Interpretation(s) Last Impressions Abdomen/Pelvis CT 06/19/16 [id number] Signed Impressions: Service Date/Time: Sunday, June 19, 2016 19:22 - CONCLUSION: Interval removal of a left ureteral stent with persistent pronounced left hydronephrosis and hydroureter. Evolving perivesical injury or inflammation Brian Olguin MD Laboratory Tests Test 06/19/16 06/19/16 19:10 20:10 White Blood Count 9.6 TH/MM3 Red Blood Count 2.45 MIL/MM3 Hemoglobin 8.3 GM/DL Hematocrit 24.4 % Mean Corpuscular Volume 99.7 FL Mean Corpuscular Hemoglobin 33.9 PG Mean Corpuscular Hemoglobin 34.0 % Concent Red Cell Distribution Width 19.2 % Platelet Count 137 TH/MM3 Mean Platelet Volume 8.4 FL Neutrophils (%) (Auto) 80.1 % Lymphocytes (%) (Auto) 7.7 % Monocytes (%) (Auto) 9.1 % Eosinophils (%) (Auto) 2.6 % Basophils (%) (Auto) 0.5 % Neutrophils # (Auto) 7.7 TH/MM3 Lymphocytes # (Auto) 0.7 TH/MM3 Monocytes # (Auto) 0.9 TH/MM3 Eosinophils # (Auto) 0.3 TH/MM3 Basophils # (Auto) 0.0 TH/MM3 CBC Comment DIFF FINAL Differential Comment Prothrombin Time 10.9 SEC Prothromb Time International 1.0 RATIO Ratio Activated Partial 26.8 SEC Thromboplast Time Urine Color LIGHT-RED Urine Turbidity HAZY Urine pH 6.5 Urine Specific [place] 1.013 Urine Protein 300 mg/dL Urine Glucose (UA) NEG mg/dL Urine Ketones NEG mg/dL Urine Occult Blood LARGE Urine Nitrite NEG Urine Bilirubin NEG Urine Urobilinogen LESS THAN 2.0 MG/DL Urine Leukocyte Esterase TRACE Urine RBC /hpf Urine WBC 32 /hpf Urine Squamous Epithelial <1 /hpf Cells Urine Bacteria OCC /hpf Urine Hyaline Casts 3 /lpf Urine Mucus FEW /lpf Microscopic Urinalysis Comment CULTURE INDICATED Sodium Level 137 MEQ/L Potassium Level 4.6 MEQ/L Chloride Level 103 MEQ/L Carbon Dioxide Level 22.4 MEQ/L Anion Gap 12 MEQ/L Blood Urea Nitrogen 39 MG/DL Creatinine 2.15 MG/DL Estimat Glomerular Filtration 30 ML/MIN Rate Random Glucose 90 MG/DL Calcium Level 8.1 MG/DL Total Bilirubin 0.3 MG/DL Aspartate Amino Transf 49 U/L (AST/SGOT) Alanine Aminotransferase 36 U/L (ALT/SGPT) Alkaline Phosphatase 89 U/L Total Protein 6.2 GM/DL Albumin 3.0 GM/DL Blood Type B POSITIVE Vital Signs Date Time Temp Pulse Resp B/P Pulse Ox O2 Delivery O2 Flow Rate FiO2 06/19/16 18:02 97.7 78 20 139/64 98 Room Air Narrative Course Please refer to previous provider's notes for full history and physical examination. Care of patient was transferred to ca, at that time previous provider was notified that a voiding cystogram could not be performed emergently. Discussed labs, imaging, and vital signs with the on-call urologist Dr. Linda. Dr. Linda stated urine should continue to drain out of the bladder with a Lobo catheter in place. Patient will be kept nothing by mouth after midnight. Case discussed with Dr. Barber, she accepted admission under observation status at this time. Dr. Bell is to be notified in the morning regarding patient's status. Diagnosis Primary Impression: Obstructive uropathy Additional Impressions: Hydroureteronephrosis Anemia Qualified Code: D64.9 - Anemia, unspecified type Hypocalcemia Acute kidney injury superimposed on chronic kidney disease Admitting Information Admitting Physician Requests: Observation Condition: Stable Kaleigh Gordillo CAR CONDITIONER Jun 19, 2016 21:40
[2016-06-19] MEDS: SODIUM CHLOR 0.9% 1000 ML INJ 1,000 ML IV SCH (21:45)
--- NOTE | 2016-06-19 21:53 | HHI.HP ---
[facility] Service [facility] Primary Care Physician Unknown Admission Diagnosis HYDRONEPHROSIS/HYDROURETER, POSSBILE BLADDER PERFORATION Diagnoses: (1) Obstructive uropathy Diagnosis: Principal (2) Hematuria Diagnosis: Principal (3) UTI (urinary tract infection) Diagnosis: Principal (4) Renal insufficiency Diagnosis: Principal (5) Afib Diagnosis: Principal Travel History International Travel<30 Days: No Contact w/Intl Traveler <30 Da: No Traveled to Known Affected Are: No History of Present Illness This is an 81-year-old male with a PMH of A. fib on Xarelto, HTN, Prostate CA s/ p Radiation, Transitional Cell Bladder CA and Obstructive Uropathy who came into the ER w/ urinary retention for approx 6hrs. Pt admitted 06/16-06/18/16 for hematuria and Obstructive Uropathy, s/p Cystoscopy w/ TURP and clot removal by Dr. Bell on 06/17/16, s/p IV Rocephin for UTI and d/c'd w/ Bactrim and Lobo. Since discharge, pt notes pink urine output of approx 2800ml however had sudden cessation of urine output this afternoon. Denies fever or chills. On arrival, BP 139/64, HR 78, O2 sat 90% on RA, Afebrile. WBC 9.6, elevated neutrophil count. Creatinine 2.15, producing 1.69 on 06/18/16. U/a w/ hematuria and UTI. CT Abd/Pelvis w/ interval removal of left ureteral stent w/ persistent pronounced left hydronephrosis and hydroureter. Dr. Bell consulted by ER physician, findings believed to be chronic however recommended Cystogram for eval of bladder perforation with request to be called w/ results. Cystogram unable to be performed emergently, Dr. Peterson informed, recommended NPO for possible repeat Cystoscopy in am. Review of Systems Other ROS: 14 point review of systems otherwise negative. Past Family Social History Past Medical History PMH: A. fib on Xarelto, HTN, Prostate CA s/p Radiation, Transitional Cell Bladder CA and Obstructive Uropathy Past Surgical History PAST SURGICAL HISTORY: Pacemaker, Cataract Surgery, TURBP, TURP Allergies: Coded Allergies: No Known Allergies (Unverified , 06/19/16) Family History PAST FAMILY HISTORY: Reviewed. No h/o DM or CAD Social History PAST SOCIAL HISTORY: Negative for alcohol, tobacco or drugs. Physical Exam Vital Signs Vital Signs Date Time Temp Pulse Resp B/P Pulse Ox O2 Delivery O2 Flow Rate FiO2 06/19/16 18:02 97.7 78 20 139/64 98 Room Air Physical Exam PE: GENERAL: Elderly white male in no acute distress. HEENT: PERRLA, EOMI. No scleral icterus or conjunctival pallor. No lid lag or facial droop. CARDIOVASCULAR: Regular rate and rhythm. No obvious murmurs to auscultation. No chest tenderness to palpation. RESPIRATORY: No obvious rhonchi or wheezing. Clear to auscultation. Breath sounds equal bilaterally. GASTROINTESTINAL: Abdomen soft, non-tender, nondistended. BS normal. Lobo in place, pink urine. MUSCULOSKELETAL: Extremities without clubbing, cyanosis, or edema. No obvious deformities. NEUROLOGICAL: Awake, alert and oriented x4. No focal neurologic deficits. Moving both upper and lower extremities spontaneously. Laboratory Laboratory Tests Test 06/19/16 06/19/16 19:10 20:10 White Blood Count 9.6 Red Blood Count 2.45 Hemoglobin 8.3 Hematocrit 24.4 Mean Corpuscular Volume 99.7 Mean Corpuscular Hemoglobin 33.9 Mean Corpuscular Hemoglobin 34.0 Concent Red Cell Distribution Width 19.2 Platelet Count 137 Mean Platelet Volume 8.4 Neutrophils (%) (Auto) 80.1 Lymphocytes (%) (Auto) 7.7 Monocytes (%) (Auto) 9.1 Eosinophils (%) (Auto) 2.6 Basophils (%) (Auto) 0.5 Neutrophils # (Auto) 7.7 Lymphocytes # (Auto) 0.7 Monocytes # (Auto) 0.9 Eosinophils # (Auto) 0.3 Basophils # (Auto) 0.0 CBC Comment DIFF FINAL Differential Comment Prothrombin Time 10.9 Prothromb Time International 1.0 Ratio Activated Partial 26.8 Thromboplast Time Urine Color LIGHT-RED Urine Turbidity HAZY Urine pH 6.5 Urine Specific Barclay 1.013 Urine Protein 300 Urine Glucose (UA) NEG Urine Ketones NEG Urine Occult Blood LARGE Urine Nitrite NEG Urine Bilirubin NEG Urine Urobilinogen LESS THAN 2.0 Urine Leukocyte Esterase TRACE Urine RBC Urine WBC 32 Urine Squamous Epithelial <1 Cells Urine Bacteria OCC Urine Hyaline Casts 3 Urine Mucus FEW Microscopic Urinalysis Comment CULTURE INDICATED Sodium Level 137 Potassium Level 4.6 Chloride Level 103 Carbon Dioxide Level 22.4 Anion Gap 12 Blood Urea Nitrogen 39 Creatinine 2.15 Estimat Glomerular Filtration 30 Rate Random Glucose 90 Calcium Level 8.1 Total Bilirubin 0.3 Aspartate Amino Transf 49 (AST/SGOT) Alanine Aminotransferase 36 (ALT/SGPT) Alkaline Phosphatase 89 Total Protein 6.2 Albumin 3.0 Blood Type B POSITIVE Antibody Screen NEGATIVE Date/Time Procedure Status Source Growth 06/19/16 19:10 Urine Culture Received Urine Random Urine Pending Result Diagram: 06/19/16190906/19/161909 Assessment and Plan Problem List: (1) Obstructive uropathy ICD Code: N13.9 Status: Acute (2) Hematuria ICD Code: R31.9 Status: Acute (3) UTI (urinary tract infection) ICD Code: N39.0 Status: Acute (4) Renal insufficiency ICD Code: N28.9 Status: Acute (5) Afib ICD Code: I48.91 Status: Acute Assessment and Plan A/P: 1. Obstructive Uropathy: w/ urinary retention, recent admit 06/16-06/18/16 for same s/p TURP by Dr. Bell 06/17/16. D/c'd w/ Lobo, now w/ decreased urine output. CT Abd/Pelvis with interval removal of left ureteral stent and persistent pronounced left hydronephrosis and hydroureter, images reviewed by me. Dr. Bell consulted, findings thought to be chronic however recommended Cystogram for possible bladder perforation, cystogram unable to be done emergently. Dr. Peterson contacted, will keep NPO for possibly Cystoscopy in am. Continue w/ Lobo. 2. Hematuria: Ongoing. Hold Xarelto. Hgb stable at 8.3. No ASA. 3. UTI: U/a w/ UTI. S/p Rocephin IV during recent admit and d/c'd on Bactrim. Continue w/ IV Abx for persistent UTI. 4. A-fib: Chronic. Hold Xarelto as above secondary to hematuria. 5. DVT Prophylaxis: SCD/Teds. 6. Social work for d/c planning as needed. 7. Case discussed w/ ER physician at length. Physician Certification 2 Midnight Certification Type: Admission for Inpatient Services Order for Inpatient Services The services are ordered in accordance with Medicare regulations or non- Medicare payer requirements, as applicable. In the case of services not specified as inpatient-only, they are appropriately provided as inpatient services in accordance with the 2-midnight benchmark. Estimated LOS (days): 2 days is the estimated time the patient will need to remain in the hospital, assuming treatment plan goals are met and no additional complications. Post-Hospital Plan: Home Kathy Barber MD Jun 19, 2016 21:53
[2016-06-19 22:19] VITALS: BP 132/63; PULSE 72; RESP 16; O2SAT 97
[2016-06-19] MEDS ORDERED: cefTRIAXone INJ 1,000 MG in SODIUM CHLORIDE 0.9% INJ 100 ML IV SCH (23:00)
[2016-06-20 01:18] VITALS: BP 125/58; PULSE 75; RESP 16; TEMP 98.3; O2SAT 96
[2016-06-20 04:56] VITALS: BP 139/60; PULSE 65; RESP 18; TEMP 98.3; O2SAT 96
[2016-06-20 06:02] LABS: AUTOMATED NEUTROPHIL # 6.5 TH/MM3 (1.8-7.7); BASOPHIL % 0.3 % (0.0-2.0); EOSINOPHIL # 0.2 TH/MM3 (0-0.4); EOSINOPHIL % 2.8 % (0.0-4.0); HEMATOCRIT 24.1 % (39.0-51.0); HEMO FLAGS DIFF FINAL; LYMPH % 7.5 % (9.0-44.0); LYMPHOCYTE # 0.6 TH/MM3 (1.0-4.8); MEAN CORPUSCULAR HEMOGLOBIN 33.6 PG (27.0-34.0); MEAN CORPUSCULAR HGB CONC 32.9 % (32.0-36.0); MONO % 7.2 % (0.0-8.0); NEUT % 82.2 % (16.0-70.0); PLATELET COUNT 112 TH/MM3 (150-450); RED BLOOD COUNT 2.36 MIL/MM3 (4.50-5.90); RED CELL DISTRIBUTION WIDTH 19.3 % (11.6-17.2); WHITE BLOOD COUNT 7.9 TH/MM3 (4.0-11.0)
[2016-06-20 06:06] LABS: ALKALINE PHOSPHATASE 92 U/L (45-117); ALT (GPT) 38 U/L (12-78); ANION GAP 9 MEQ/L (5-15); AST (GOT) 41 U/L (15-37); BICARBONATE 21.3 MEQ/L (21.0-32.0); BLOOD UREA NITROGEN 38 MG/DL (7-18); CHLORIDE 109 MEQ/L (98-107); GLOMERULAR FILTRATION RATE 33 ML/MIN (>89); POTASSIUM 4.8 MEQ/L (3.5-5.1); SODIUM (NA) 139 MEQ/L (136-145); TOTAL BILIRUBIN ADULT 0.2 MG/DL (0.2-1.0)
[2016-06-20] MEDS: SODIUM CHLOR 0.9% 1000 ML INJ 1,000 ML IV SCH (07:27)
[2016-06-20 07:44] VITALS: BP 140/64; PULSE 64; RESP 18; TEMP 99; O2SAT 97
--- NOTE | 2016-06-20 08:38 | HHI.PR ---
Subjective Remarks Follow up for obstructive uropathy. The patient reports continued lower abdominal discomfort and hematuria output in Lobo, no obvious clots. He states after discharge he was initially getting significant output into Lobo however last night this slowed down quite a bit and he didn't have hardly any output in Lobo over a span of 6hours. Awaiting urology evaluation this morning. Objective Vitals Vital Signs Date Time Temp Pulse Resp B/P Pulse Ox O2 Delivery O2 Flow Rate FiO2 06/20/16 07:44 99.0 64 18 140/64 97 06/20/16 04:56 98.3 65 18 139/60 96 06/20/16 01:18 98.3 75 16 125/58 96 06/19/16 22:19 72 16 132/63 97 Room Air 06/19/16 18:02 97.7 78 20 139/64 98 Room Air I/O 06/19/16 06/19/16 06/19/16 06/20/16 06/20/16 06/20/16 07:00 15:00 23:00 07:00 15:00 23:00 Intake Total 804 ml Output Total 350 ml Balance 454 ml Intake IV Total 804 ml Output Urine Total 350 ml Bladder Scan Volume Amount 0 ml Result Diagram: 06/20/16 0451 06/20/16 0451 Imaging Last Impressions Abdomen/Pelvis CT 06/19/16 1855 Signed Impressions: Service Date/Time: Sunday, June 19, 2016 19:22 - CONCLUSION: Interval removal of a left ureteral stent with persistent pronounced left hydronephrosis and hydroureter. Evolving perivesical injury or inflammation Brian Olguin MD Objective Remarks GENERAL: Well-nourished, well-developed pleasant elderly male patient in [facility]. SKIN: Warm and dry. No rash. HEAD: Normocephalic. Atraumatic. ENT: No nasal bleeding or discharge. Mucous membranes pink and moist. NECK: Supple. Trachea midline. CARDIOVASCULAR: Regular rate and rhythm. S1, S2 noted. No murmur appreciated. RESPIRATORY: No accessory muscle use. Clear to auscultation. Breath sounds equal bilaterally. GASTROINTESTINAL: Abdomen soft, mild hypogastric and suprapubic tenderness to palpation, nondistended. Normoactive bowel sounds x4. GENITOURINARY: Lobo in place with dark red hematuria output, no clots. MUSCULOSKELETAL: No obvious deformities. Extremities without clubbing, cyanosis , or edema. NEUROLOGICAL: Awake and alert. No obvious cranial nerve deficits. Motor grossly within normal limits. Normal speech. PSYCHIATRIC: Appropriate mood and affect; insight and judgment normal. Medications and IVs Current Medications Medications (Trade) Dose Ordered Sig/Anni Route Start Time Stop Time Status Last Admin (NS Flush) 2 ml UNSCH PRN IVF 06/19/16 19:00 IV Flush 2 ml 2 ml UNSCH PRN IVF 06/19/16 19:00 Sodium Chloride 250 ml @ 15 mls/hr ONCE ONCE IV 06/19/16 20:15 06/20/16 12:54 Ceftriaxone Sodium 1000 mg/ Sodium Chloride 100 ml @ 200 mls/hr Q24H IV 06/19/16 23:00 06/19/16 23:00 (NS 1000 ml Inj) 1,000 ml @ 60 mls/hr [id number] IV 06/19/16 21:27 06/19/16 21:45 (NS Flush) 2 ml UNSCH PRN FLUSH 06/19/16 21:30 (NS Flush) 2 ml BID FLUSH 06/20/16 09:00 06/20/16 09:17 (Zofran Inj) 4 mg Q6H PRN IVP 06/19/16 21:30 (Dulcolax Supp) 10 mg DAILY PRN OK 06/19/16 21:30 (Tylenol) 650 mg Q6H PRN PO 06/19/16 21:30 (Seymour 5-325 Mg) 1 tab Q4H PRN PO 06/19/16 21:30 (Morphine Inj) 2 mg Q3H PRN IV 06/19/16 21:30 (Bumetanide) 0.5 mg DAILY PO 06/20/16 09:00 06/20/16 09:17 (Proscar) 5 mg DAILY PO 06/20/16 09:00 (Ismo) 10 mg DAILY PO 06/20/16 09:00 (Toprol Xl) 50 mg BID PO 06/20/16 09:00 06/20/16 09:17 (Protonix) 40 mg DAILY PO 06/20/16 09:00 06/20/16 09:17 (Pravachol) 40 mg HS PO 06/20/16 21:00 Urinary Catheter: Yes Assessment to: Continue Lobo insert reason: Obstruction/Retention Vascular Central Line Catheter: No A/P Problem List: (1) Obstructive uropathy ICD Code: N13.9 Status: Acute (2) Hematuria ICD Code: R31.9 Status: Acute (3) UTI (urinary tract infection) ICD Code: N39.0 Status: Acute (4) Renal insufficiency ICD Code: N28.9 Status: Acute (5) Afib ICD Code: I48.91 Status: Acute Assessment and Plan 81-year-old male with a PMH of A. fib on Xarelto, HTN, Prostate CA s/p Radiation , Transitional Cell Bladder CA and Obstructive Uropathy who came into the ER w/ urinary retention for approx 6hrs prior to arrival Obstructive Uropathy: w/ urinary retention, recent admit 06/16-06/18/16 for same s/ p TURP by Dr. Bell 06/17/16. D/c'd w/ Lobo, now w/ decreased urine output. CT Abd/Pelvis with interval removal of left ureteral stent and persistent pronounced left hydronephrosis and hydroureter, images reviewed by me. Dr. Bell consulted, findings thought to be chronic however recommended Cystogram for possible bladder perforation, cystogram unable to be done emergently. Dr. Peterson contacted, keep NPO for possible Cystoscopy today. Continue w/ Lobo. Hematuria: Ongoing. Hold Xarelto. Hgb stable at 8.3. No ASA. Monitor daily CBC. UTI: U/a w/ UTI. S/p Rocephin IV during recent admit and d/c'd on Bactrim. Continue w/ IV Rocephin for persistent UTI. A-fib: Chronic. Hold Xarelto as above secondary to hematuria. CKD, stage III: appears at baseline. Avoid further nephrotoxins. DVT Prophylaxis: SCD/Teds. Written by Liya Richardson, acting as scribe for Dr. Davison on 06/20/16 at 08:38. The documentation accurately reflects the work performed [id number] by me on at 0838 Discharge Planning Await urology evaluation. Liya Richardson PA-C Jun 20, 2016 08:38 Ameya Davison MD Jun 20, 2016 16:22
[2016-06-20] MEDS ORDERED: PANTOPRAZOLE SOD 40 MG DELAYED RELEASE TAB PO SCH (09:00)
[2016-06-20] MEDS ORDERED: BUMETANIDE 1 MG TAB PO SCH (09:00)
[2016-06-20] MEDS ORDERED: METOPROLOL SUCCINATE 50 MG EXTENDED RELEASE TAB PO SCH (09:00)
[2016-06-20] MEDS ORDERED: FINASTERIDE 5 MG TAB PO SCH (09:00)
[2016-06-20] MEDS ORDERED: ISOSORBIDE MONONITRATE 20 MG TAB PO SCH (09:00)
[2016-06-20] MEDS ORDERED: SODIUM CHLORIDE 0.9% FLUSH 5 ML FLUSH FLUSH SCH (09:00)
[2016-06-20 17:20] VITALS: BP 138/63; PULSE 62; RESP 18; TEMP 96.5; O2SAT 96
[2016-06-20] MEDS ORDERED: OXYB5TAB10 PO (18:42)
--- NOTE | 2016-06-20 18:44 | HHI.DCPOC ---
Discharge Care Plan Diagnosis: (1) Obstructive uropathy (2) UTI (urinary tract infection) (3) Hematuria Goals to Promote Your Health * To prevent worsening of your condition and complications * To maintain your health at the optimal level Directions to Meet Your Goals Take your medications as prescribed Follow your dietary instruction Follow activity as directed Keep your appointments as scheduled Take your immunizations and boosters as scheduled If your symptoms worsen call your PCP, if no PCP go to Urgent Care Center or Emergency Room Smoking is Dangerous to Your Health. Avoid second hand smoke Call the 24-hour hour crisis hotline for domestic abuse at Liya Richardson PA-C Jun 20, 2016 18:44
--- NOTE | 2016-06-20 18:46 | PD.CONS ---
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 Patient reports he felt the catheter was not draining well, however this quickly resolved and he is currently doing well without pain or discomfort. No fevers. Review of Systems ROS Limitations: Clinical Condition Constitutional: DENIES: Fever Eyes: DENIES: Vision loss Ears, nose, mouth, throat: DENIES: Hearing loss Cardiovascular: DENIES: Chest pain Gastrointestinal: DENIES: Abdominal pain Psychiatric: DENIES: Anxiety Past Family Social History Past Medical History A. fib on Xarelto, HTN, Prostate CA s/p Radiation, Transitional Cell Bladder CA and Obstructive Uropathy Past Surgical History Pacemaker, Cataract Surgery, TURBT, TURP Reported Medications Reported Meds & Active Scripts Active Bactrim DS (Sulfamethoxazole-Trimethoprim) 800-160 Mg Tab 1 Tab PO BID Reported Tramadol (Tramadol HCl) 50 Mg Tab 50 Mg PO Q6H PRN K-Tab (Potassium Chloride) 10 Meq Tab 10 Meq PO DAILY Proscar (Finasteride) 5 Mg Tab 5 Mg PO DAILY Do not crush. Bumex (Bumetanide) 0.5 Mg Tab 0.5 Mg PO DAILY Allopurinol 300 Mg Tab 300 Mg PO DAILY Gabapentin 100 Mg Cap 100-200 Mg PO HS Isosorbide Mononitrate 10 Mg Tab 10 Mg PO DAILY Pantoprazole (Pantoprazole Sodium) 40 Mg Tab 40 Mg PO DAILY Lisinopril 5 Mg Tab 5 Mg PO DAILY Toprol XL (Metoprolol Succinate) 50 Mg Tab 50 Mg PO BID Pravastatin 40 Mg Tab 40 Mg PO HS Allergies: Coded Allergies: No Known Allergies (Unverified , 06/19/16) Active Ordered Medications Current Medications Medications (Trade) Dose Ordered Sig/Anni Route Start Time Stop Time Status Last Admin (NS Flush) 2 ml UNSCH PRN IVF 06/19/16 19:00 IV Flush 2 ml 2 ml UNSCH PRN IVF 06/19/16 19:00 Ceftriaxone Sodium 1000 mg/ Sodium Chloride 100 ml @ 200 mls/hr Q24H IV 06/19/16 23:00 06/19/16 23:00 (NS 1000 ml Inj) 1,000 ml @ 60 mls/hr [id number] IV 06/19/16 21:27 06/20/16 07:27 (NS Flush) 2 ml UNSCH PRN FLUSH 06/19/16 21:30 (NS Flush) 2 ml BID FLUSH 06/20/16 09:00 06/20/16 09:17 (Zofran Inj) 4 mg Q6H PRN IVP 06/19/16 21:30 (Dulcolax Supp) 10 mg DAILY PRN CO 06/19/16 21:30 (Tylenol) 650 mg Q6H PRN PO 06/19/16 21:30 (Bryan 5-325 Mg) 1 tab Q4H PRN PO 06/19/16 21:30 (Morphine Inj) 2 mg Q3H PRN IV 06/19/16 21:30 (Bumetanide) 0.5 mg DAILY PO 06/20/16 09:00 06/20/16 09:17 (Proscar) 5 mg DAILY PO 06/20/16 09:00 (Ismo) 10 mg DAILY PO 06/20/16 09:00 (Toprol Xl) 50 mg BID PO 06/20/16 09:00 06/20/16 09:17 (Protonix) 40 mg DAILY PO 06/20/16 09:00 06/20/16 09:17 (Pravachol) 40 mg HS PO 06/20/16 21:00 Family History No h/o DM or CAD Social History Negative for alcohol, tobacco or drugs. Physical Exam Vital Signs Vital Signs Date Time Temp Pulse Resp B/P Pulse Ox O2 Delivery O2 Flow Rate FiO2 06/20/16 17:20 96.5 62 18 138/63 96 06/20/16 07:44 99.0 64 18 140/64 97 06/20/16 04:56 98.3 65 18 139/60 96 06/20/16 01:18 98.3 75 16 125/58 96 06/19/16 22:19 72 16 132/63 97 Room Air Physical Exam GENERAL: This is a well-nourished, well-developed patient, in no apparent distress. SKIN: No rashes, ecchymoses or lesions. Cool and dry. HEAD: Atraumatic. Normocephalics. EYES: Extraocular motions intact. No scleral icterus. No injection or drainage. ENT: Nose without bleeding, purulent drainage. Airway patent. NECK: Trachea midline. RESPIRATORY: Nonlabored GASTROINTESTINAL: Abdomen soft, non-tender, nondistended. No hepato-splenomegaly , or palpable masses. No guarding. : Lobo in place with light clear pink urine, draining well, small clots noted , passing well MUSCULOSKELETAL: Extremities without clubbing, cyanosis, or edema. NEUROLOGICAL: Awake and alert. Motor and sensory grossly within normal limits. Normal speech. Laboratory Laboratory Tests Test 06/19/16 06/19/16 06/20/16 19:10 20:10 04:51 White Blood Count 9.6 7.9 Red Blood Count 2.45 2.36 Hemoglobin 8.3 7.9 Hematocrit 24.4 24.1 Mean Corpuscular Volume 99.7 102.0 Mean Corpuscular Hemoglobin 33.9 33.6 Mean Corpuscular Hemoglobin 34.0 32.9 Concent Red Cell Distribution Width 19.2 19.3 Platelet Count 137 112 Mean Platelet Volume 8.4 8.6 Neutrophils (%) (Auto) 80.1 82.2 Lymphocytes (%) (Auto) 7.7 7.5 Monocytes (%) (Auto) 9.1 7.2 Eosinophils (%) (Auto) 2.6 2.8 Basophils (%) (Auto) 0.5 0.3 Neutrophils # (Auto) 7.7 6.5 Lymphocytes # (Auto) 0.7 0.6 Monocytes # (Auto) 0.9 0.6 Eosinophils # (Auto) 0.3 0.2 Basophils # (Auto) 0.0 0.0 CBC Comment DIFF FINAL DIFF FINAL Differential Comment Prothrombin Time 10.9 Prothromb Time International 1.0 Ratio Activated Partial 26.8 Thromboplast Time Urine Color LIGHT-RED Urine Turbidity HAZY Urine pH 6.5 Urine Specific [place]raw[place] 1.013 Urine Protein 300 Urine Glucose (UA) NEG Urine Ketones NEG Urine Occult Blood LARGE Urine Nitrite NEG Urine Bilirubin NEG Urine Urobilinogen LESS THAN 2.0 Urine Leukocyte Esterase TRACE Urine RBC Urine WBC 32 Urine Squamous Epithelial <1 Cells Urine Bacteria OCC Urine Hyaline Casts 3 Urine Mucus FEW Microscopic Urinalysis Comment CULTURE INDICATED Sodium Level 137 139 Potassium Level 4.6 4.8 Chloride Level 103 109 Carbon Dioxide Level 22.4 21.3 Anion Gap 12 9 Blood Urea Nitrogen 39 38 Creatinine 2.15 1.95 Estimat Glomerular Filtration 30 33 Rate Random Glucose 90 101 Calcium Level 8.1 8.0 Total Bilirubin 0.3 0.2 Aspartate Amino Transf 49 41 (AST/SGOT) Alanine Aminotransferase 36 38 (ALT/SGPT) Alkaline Phosphatase 89 92 Total Protein 6.2 5.6 Albumin 3.0 2.6 Blood Type B POSITIVE Antibody Screen NEGATIVE Date/Time Procedure Status Source Growth 06/19/16 19:10 Urine Culture - Preliminary Resulted Urine Random Urine NO GROWTH IN 24 HOURS. Result Diagram: 06/20/16 0451 06/20/16 0451 Imaging Last 48 hours Impressions Abdomen/Pelvis CT 06/19/16 4248 Signed Impressions: Service Date/Time: Sunday, June 19, 2016 19:22 - CONCLUSION: Interval removal of a left ureteral stent with persistent pronounced left hydronephrosis and hydroureter. Evolving perivesical injury or inflammation Brian Olguin MD Assessment and Plan Problem List: (1) Bladder obstruction ICD Code: N32.0 Status: Acute (2) Josiah hematuria ICD Code: R31.0 Status: Acute (3) Hematuria ICD Code: R31.9 Status: Acute Assessment and Plan -Patient doing well at this time -Patient clear for discharge from Urology standpoint -Patient to follow-up with Urology in clinic this week with Cystogram prior to clinic visit and potential catheter removal -Continue Antibiotics -Please call with questions Ry Bell MD Jun 20, 2016 18:46
[2016-06-20 20:17] VITALS: BP 152/70; PULSE 72; RESP 20; TEMP 98.1; O2SAT 98
[2016-06-20] MEDS ORDERED: PRAVASTATIN SOD 40 MG TAB PO SCH (21:00)
== END 2016-06-20 22:56 | disposition home or self-care (01) | DRG 699 ==
LOC: NEPA 17:58 → NEDA 21:30 → OBSVTOIN 21:52 → NEPGCP 23:02
PROVIDERS: ADMIT Internal Medicine; ATTEND Internal Medicine
DX: N13.9 Obstructive and reflux uropathy, unspecified (principal); N13.30 Unspecified hydronephrosis; N39.0 Urinary tract infection, site not specified; I48.2 Chronic atrial fibrillation; N18.3 Chronic kidney disease, stage 3 (moderate); R33.9 Retention of urine, unspecified; R31.0 Gross hematuria; D64.9 Anemia, unspecified; E83.51 Hypocalcemia; N28.9 Disorder of kidney and ureter, unspecified; I12.9 Hypertensive chronic kidney disease with stage 1 through stage 4 chronic kidney disease, or unspecified chronic kidney disease; I25.10 Atherosclerotic heart disease of native coronary artery without angina pectoris; Z85.51 Personal history of malignant neoplasm of bladder; Z85.46 Personal history of malignant neoplasm of prostate; Z92.3 Personal history of irradiation; Z95.0 Presence of cardiac pacemaker; Z79.01 Long term (current) use of anticoagulants; Z87.891 Personal history of nicotine dependence
CPT/HCPCS: 36430; 51702; 74176; 80048; 80053; 81001; 82607; 82746; 83735; 85014; 85018; 85025; 85610; 85730; 86850; 86900; 86901; 86920; 87086; 96360; G0378; G8987-GP; G8988-GP; J0131; J0696; J1940; J2370; J2405; J3010; J7030; J7050; P9016

== ENCOUNTER 2016-06-25 16:33 | Emergency (ER) | payer MEDICARE, OTHER ==
[~2016-06-25 16:33] MED LIST changes: +OXYB5TAB10 PO
[2016-06-25 16:34] VITALS: BP 127/63; PULSE 65; RESP 14; TEMP 98.1; O2SAT 97
[2016-06-25 17:41] VITALS: BP 135/63; PULSE 77; RESP 18; O2SAT 96
--- NOTE | 2016-06-25 18:23 | PD ---
HPI Chief Complaint: Complaint Time Seen by Provider: 18:03 Travel History International Travel<30 days: No Contact w/Intl Traveler<30days: No Traveled to known affect area: No History of Present Illness HPI Yes. There O 81-year-old male complains of Lobo catheter blockage. Patient has history of hematuria, obstructive uropathy, atrial fibrillation, hypertension, prostate cancer status post radiation, transitional cell bladder cancer. Patient has been seen by urologist. Patient has indwelling Lobo catheter. Patient states that the Lobo draining since noon today. Patient denies other problem. PFSH Past Medical History Atrial Fibrillation: Yes Heart Rhythm Problems: Yes Cancer: Yes (PROSTATE-[id number]) Cardiovascular Problems: Yes Chemotherapy: Yes (PROSTATE CA) Chest Pain: No Congestive Heart Failure: No Diabetes: Yes Diminished Hearing: No Endocrine: No Gastrointestinal Disorders: Yes (CELIAC DISEASE) Genitourinary: Yes (BLOCKAGE) Hepatitis: No Hiatal Hernia: Yes Hypertension: Yes Immune Disorder: No Musculoskeletal: No Neurologic: No Psychiatric: No Reproductive: No Respiratory: No Thyroid Disease: No Past Surgical History Abdominal Surgery: No AICD: No Cardiac Surgery: Yes (PACEMAKER) Ear Surgery: No Endocrine Surgery: No Eye Surgery: Yes (CATARACT RIGHT EYE) Genitourinary Surgery: Yes (SCOPED) Gynecologic Surgery: No Joint Replacement: No Oral Surgery: No Pacemaker: Yes Thoracic Surgery: Yes (OPEN HEART) Social History Alcohol Use: No Tobacco Use: No Substance Use: No Allergies-Medications (Allergen,Severity, Reaction): Coded Allergies: No Known Allergies (Unverified , 06/25/16) Reported Meds & Prescriptions Reported Meds & Active Scripts Active Bactrim DS (Sulfamethoxazole-Trimethoprim) 800-160 Mg Tab 1 Tab PO BID Bactrim DS (Sulfamethoxazole-Trimethoprim) 800-160 Mg Tab 1 Tab PO BID Reported Tramadol (Tramadol HCl) 50 Mg Tab 50 Mg PO Q6H PRN K-Tab (Potassium Chloride) 10 Meq Tab 10 Meq PO DAILY Proscar (Finasteride) 5 Mg Tab 5 Mg PO DAILY Do not crush. Bumex (Bumetanide) 0.5 Mg Tab 0.5 Mg PO DAILY Allopurinol 300 Mg Tab 300 Mg PO DAILY Gabapentin 100 Mg Cap 100-200 Mg PO HS Isosorbide Mononitrate 10 Mg Tab 10 Mg PO DAILY Pantoprazole (Pantoprazole Sodium) 40 Mg Tab 40 Mg PO DAILY Lisinopril 5 Mg Tab 5 Mg PO DAILY Toprol XL (Metoprolol Succinate) 50 Mg Tab 50 Mg PO BID Pravastatin 40 Mg Tab 40 Mg PO HS Review of Systems General / Constitutional: No: Fever Eyes: No: Visual changes HENT: No: Headaches Cardiovascular: No: Chest Pain or Discomfort Respiratory: No: Shortness of Breath Gastrointestinal: No: Abdominal Pain Genitourinary: Positive: Decreased Urinary Output, No: Dysuria Musculoskeletal: No: Pain Skin: No Rash Neurologic: No: Weakness Psychiatric: No: Depression Endocrine: No: Polydipsia Hematologic/Lymphatic: No: Easy Bruising Physical Exam Narrative GENERAL: Well-nourished, well-developed patient. SKIN: Warm and dry. HEAD: Normocephalic. EYES: No scleral icterus. No injection or drainage. NECK: Supple, trachea midline. No JVD or lymphadenopathy. CARDIOVASCULAR: Regular rate and rhythm without murmurs, gallops, or rubs. RESPIRATORY: Breath sounds equal bilaterally. No accessory muscle use. GASTROINTESTINAL: Abdomen soft, non-tender, nondistended. MUSCULOSKELETAL: No cyanosis, or edema. BACK: Nontender without obvious deformity. No CVA tenderness. exam: Lobo in place. Data Data Last Documented VS Vital Signs Date Time Temp Pulse Resp B/P Pulse Ox O2 Delivery O2 Flow Rate FiO2 06/25/16 17:41 77 18 135/63 96 Room Air 06/25/16 16:34 98.1 Orders Bladder/Catheter Irrigation (06/25/16 18:11) Urinalysis - C+S If Indicated (06/25/16 18:11) Urine Culture (06/25/16 18:43) Labs Laboratory Tests Test 06/25/16 18:43 Urine Color YELLOW Urine Turbidity HAZY Urine pH 6.5 Urine Specific Vinson 1.012 Urine Protein 100 mg/dL Urine Glucose (UA) NEG mg/dL Urine Ketones NEG mg/dL Urine Occult Blood MOD Urine Nitrite NEG Urine Bilirubin NEG Urine Urobilinogen LESS THAN 2.0 MG/DL Urine Leukocyte Esterase MOD Urine RBC /hpf Urine WBC 73 /hpf Urine Bacteria RARE /hpf Urine Hyaline Casts 8 /lpf Urine Mucus FEW /lpf Microscopic Urinalysis Comment CULTURE INDICATED MDM Medical Decision Making Medical Screen Exam Complete: Yes Emergency Medical Condition: Yes Differential Diagnosis Differential diagnosis including block Lobo catheter, blood clots. Narrative Course 81-year-old male with blocked Lobo catheter. Lobo catheter was irrigated. Lobo catheter draining adequately subsequently. Diagnosis Primary Impression: Complication, blocked Lobo catheter Qualified Code: T83.091A - Complication, blocked Lobo catheter, initial encounter Additional Impression: Hematuria Patient Instructions: General Instructions Additional Instructions: Follow-up with urologist. Med/Other Pt SpecificInfo: No Change to Meds Scripts Sulfamethoxazole-Trimethoprim (Bactrim DS)800-160 Mg Tab1 Tab PO BID #14 TAB Prov:Faustino Hitchcock MD 06/25/16 Disposition: 01 DISCHARGE HOME Condition: Stable Faustino Hitchcock MD Jun 25, 2016 18:22
[2016-06-25 19:07] LABS: BACTERIA, URINE RARE /hpf; BLOOD, URINE MOD (NEG); COMMENT (UR) CULTURE INDICATED; CULTURE IF INDICATED CULTURE INDICATED; GLUCOSE,URINE NEG (NEG); HYALINE CAST, URINE 8 /lpf (RARE); KETONE, URINE NEG (NEG); MUCUS URINE FEW /lpf (OCC); NITRITE,URINE NEG (NEG); PH, URINE 6.5 (5.0-8.5); URINE COLOR YELLOW (YELLW/STRAW)
[2016-06-25] MEDS ORDERED: BACT800T5 PO (20:37)
== END 2016-06-25 21:00 | disposition home or self-care (01) ==
LOC: NEPA 16:33
DX: T83.091A Other mechanical complication of indwelling urethral catheter, initial encounter (principal); I10 Essential (primary) hypertension; E11.9 Type 2 diabetes mellitus without complications; R31.9 Hematuria, unspecified; I48.91 Unspecified atrial fibrillation; K90.0 Celiac disease; X58.XXXA Exposure to other specified factors, initial encounter
CPT/HCPCS: 51700; 81001; 87086

== ENCOUNTER 2017-06-09 14:05 | Emergency (ER) | payer OTHER ==
[~2017-06-09] VITALS: Ht 162.6 cm; Wt 64.5 kg
[~2017-06-09 14:05] MED LIST changes: -OXYB5TAB10 PO
[2017-06-09 14:06] VITALS: BP 182/81; PULSE 96; RESP 20; TEMP 98; O2SAT 95
[2017-06-09] MEDS ORDERED: SODIUM CHLORIDE 0.9% FLUSH 10 ML FLUSH IVF PRN (16:00)
[2017-06-09] MEDS ORDERED: SODIUM CHLORID 0.9% 500 ML INJ 500 ML IV ONE (16:00)
--- NOTE | 2017-06-09 16:07 | PD ---
HPI Chief Complaint: Dizziness Time Seen by Provider: 15:32 Travel History International Travel<30 days: No Contact w/Intl Traveler<30days: No Traveled to known affect area: No History of Present Illness HPI The patient is a 82-year-old male who presents to the emergency department for bilateral neck pain and dizziness. The patient's symptoms started 2 days ago, he complains of bilateral paravertebral tenderness which is worse with rotation of the neck left and right as well as looking upright. He denies any pain with putting his chin to his chest. He denies any trauma to the area and denies any activities which may exacerbated his symptoms. He also complains of dizziness which she states is worse with upright, ambulatory, feels like he is off balance. He had one episode of nausea yesterday but denies any vomiting. He denies any focal deficits of the upper or lower extremities. He denies any weakness, numbness, or tingling of the upper or lower extremities. He denies any speech changes. PFSH Past Medical History Atrial Fibrillation: Yes Heart Rhythm Problems: Yes Cancer: Yes ([id number]) Cardiovascular Problems: Yes Chemotherapy: Yes (PROSTATE CA) Chest Pain: No Congestive Heart Failure: No Diabetes: Yes Diminished Hearing: No Endocrine: No Gastrointestinal Disorders: Yes (CELIAC DISEASE) Genitourinary: Yes (BLOCKAGE) Hepatitis: No Hiatal Hernia: Yes Hypertension: Yes Immune Disorder: No Musculoskeletal: No Neurologic: No Psychiatric: No Reproductive: No Respiratory: No Thyroid Disease: No Past Surgical History Abdominal Surgery: No AICD: No Cardiac Surgery: Yes (PACEMAKER) Ear Surgery: No Endocrine Surgery: No Eye Surgery: Yes (CATARACT RIGHT EYE) Genitourinary Surgery: Yes (SCOPED) Gynecologic Surgery: No Joint Replacement: No Oral Surgery: No Pacemaker: Yes Thoracic Surgery: Yes (OPEN HEART) Other Surgery: Yes Social History Alcohol Use: No Tobacco Use: No Substance Use: No Allergies-Medications (Allergen,Severity, Reaction): Coded Allergies: No Known Allergies (Unverified Adverse Reaction, Unknown, 06/09/17) Reported Meds & Prescriptions Reported Meds & Active Scripts Active Bactrim DS (Sulfamethoxazole-Trimethoprim) 800-160 Mg Tab 1 Tab PO BID Bactrim DS (Sulfamethoxazole-Trimethoprim) 800-160 Mg Tab 1 Tab PO BID Reported Tramadol (Tramadol HCl) 50 Mg Tab 50 Mg PO Q6H PRN K-Tab (Potassium Chloride) 10 Meq Tab 10 Meq PO DAILY Proscar (Finasteride) 5 Mg Tab 5 Mg PO DAILY Do not crush. Bumex (Bumetanide) 0.5 Mg Tab 0.5 Mg PO DAILY Allopurinol 300 Mg Tab 300 Mg PO DAILY Gabapentin 100 Mg Cap 100-200 Mg PO HS Isosorbide Mononitrate 10 Mg Tab 10 Mg PO DAILY Pantoprazole (Pantoprazole Sodium) 40 Mg Tab 40 Mg PO DAILY Lisinopril 5 Mg Tab 5 Mg PO DAILY Toprol XL (Metoprolol Succinate) 50 Mg Tab 50 Mg PO BID Pravastatin 40 Mg Tab 40 Mg PO HS Review of Systems Except as stated in HPI: all other systems reviewed are Neg General / Constitutional: No: Fever, Chills Eyes: No: Blurred Vision HENT: Positive: Neck Stiffness, Neck Pain, No: Lightheadedness Cardiovascular: No: Chest Pain or Discomfort, Palpitations, Syncope Respiratory: No: Shortness of Breath Gastrointestinal: Positive: Nausea, No: Vomiting Musculoskeletal: No: Weakness Neurologic: Positive: Dizziness, Headache, No: Syncope, Focal Abnormalities, Change in Mentation, Slurred Speech, Paresthesia, Sensory Disturbance Physical Exam Narrative GENERAL: Awake, alert, pleasant 82-year-old male who appears his stated age and is in no acute respiratory distress. SKIN: Focused skin assessment warm/dry. HEAD: Atraumatic. Normocephalic. EYES: Pupils equal and round. No scleral icterus. No injection or drainage. ENT: No nasal bleeding or discharge. Mucous membranes pink and moist. Hearing aids were in place, when removed the left tympanic membrane is translucent and the left EAC is clear. The right tympanic membrane cannot be visualized, the right EAC was impacted. NECK: Trachea midline. No JVD. CARDIOVASCULAR: Regular rate and rhythm. No murmur appreciated. Pacemaker in place left chest wall. RESPIRATORY: No accessory muscle use. Clear to auscultation. Breath sounds equal bilaterally. GASTROINTESTINAL: Abdomen soft, non-tender, nondistended. MUSCULOSKELETAL: No obvious deformities. No clubbing. No cyanosis. No edema. NEUROLOGICAL: Awake and alert. No obvious cranial nerve deficits. Motor grossly within normal limits. Normal speech. Nonfocal. No dysarthria noted. Finger to nose normal. [id number] normal. Alternating hand movements normal. No drift of the upper or lower extremities. Sensation was symmetric bilaterally. Patient is able to ambulate, appears slightly off balance when ambulating. PSYCHIATRIC: Appropriate mood and affect; insight and judgment normal. Data Data Last Documented VS Vital Signs Date Time Temp Pulse Resp B/P (MAP) Pulse Ox O2 Delivery O2 Flow Rate FiO2 06/09/17 18:59 06/09/17 17:21 75 71 71 06/09/17 14:06 98.0 20 95 Room Air Orders Orders Electrocardiogram (06/09/17 15:59) Complete Blood Count With Diff (06/09/17 15:59) Comprehensive Metabolic Panel (06/09/17 15:59) Magnesium (Mg) (06/09/17 15:59) Ct Brain W/O Iv Contrast(Rout) (06/09/17 15:59) Ecg Monitoring (06/09/17 15:59) Iv Access Insert/Monitor (06/09/17 15:59) Oximetry (06/09/17 15:59) Sodium Chloride 0.9% Flush (Ns Flush) (06/09/17 16:00) Orthostatic Vital Signs (06/09/17 15:59) Sodium Chlorid 0.9% 500 Ml Inj (Ns 500 M (06/09/17 16:00) ^ Other Nursing Orders (06/09/17 15:59) Ed Discharge Order (06/09/17 18:35) Labs Laboratory Tests Test 06/09/17 16:10 White Blood Count 7.8 TH/MM3 Red Blood Count 4.18 MIL/MM3 Hemoglobin 14.3 GM/DL Hematocrit 43.0 % Mean Corpuscular Volume 102.8 FL Mean Corpuscular Hemoglobin 34.2 PG Mean Corpuscular Hemoglobin Concent 33.2 % Red Cell Distribution Width 15.4 % Platelet Count 198 TH/MM3 Mean Platelet Volume 8.6 FL Neutrophils (%) (Auto) 82.7 % Lymphocytes (%) (Auto) 7.3 % Monocytes (%) (Auto) 8.9 % Eosinophils (%) (Auto) 0.7 % Basophils (%) (Auto) 0.4 % Neutrophils # (Auto) 6.4 TH/MM3 Lymphocytes # (Auto) 0.6 TH/MM3 Monocytes # (Auto) 0.7 TH/MM3 Eosinophils # (Auto) 0.1 TH/MM3 Basophils # (Auto) 0.0 TH/MM3 CBC Comment DIFF FINAL Differential Comment Blood Urea Nitrogen 45 MG/DL Creatinine 1.89 MG/DL Random Glucose 101 MG/DL Total Protein 8.8 GM/DL Albumin 4.1 GM/DL Calcium Level 9.9 MG/DL Magnesium Level 2.6 MG/DL Alkaline Phosphatase 100 U/L Aspartate Amino Transf (AST/SGOT) 24 U/L Alanine Aminotransferase (ALT/SGPT) 17 U/L Total Bilirubin 0.6 MG/DL Sodium Level 139 MEQ/L Potassium Level 4.5 MEQ/L Chloride Level 104 MEQ/L Carbon Dioxide Level 28.5 MEQ/L Anion Gap 7 MEQ/L Estimat Glomerular Filtration Rate 34 ML/MIN [facility] Medical Decision Making Medical Screen Exam Complete: Yes Emergency Medical Condition: Yes Medical Record Reviewed: Yes Interpretation(s) Laboratory Tests Test 06/09/17 16:10 White Blood Count 7.8 TH/MM3 Red Blood Count 4.18 MIL/MM3 Hemoglobin 14.3 GM/DL Hematocrit 43.0 % Mean Corpuscular Volume 102.8 FL Mean Corpuscular Hemoglobin 34.2 PG Mean Corpuscular Hemoglobin Concent 33.2 % Red Cell Distribution Width 15.4 % Platelet Count 198 TH/MM3 Mean Platelet Volume 8.6 FL Neutrophils (%) (Auto) 82.7 % Lymphocytes (%) (Auto) 7.3 % Monocytes (%) (Auto) 8.9 % Eosinophils (%) (Auto) 0.7 % Basophils (%) (Auto) 0.4 % Neutrophils # (Auto) 6.4 TH/MM3 Lymphocytes # (Auto) 0.6 TH/MM3 Monocytes # (Auto) 0.7 TH/MM3 Eosinophils # (Auto) 0.1 TH/MM3 Basophils # (Auto) 0.0 TH/MM3 CBC Comment DIFF FINAL Differential Comment Blood Urea Nitrogen 45 MG/DL Creatinine 1.89 MG/DL Random Glucose 101 MG/DL Total Protein 8.8 GM/DL Albumin 4.1 GM/DL Calcium Level 9.9 MG/DL Magnesium Level 2.6 MG/DL Alkaline Phosphatase 100 U/L Aspartate Amino Transf (AST/SGOT) 24 U/L Alanine Aminotransferase (ALT/SGPT) 17 U/L Total Bilirubin 0.6 MG/DL Sodium Level 139 MEQ/L Potassium Level 4.5 MEQ/L Chloride Level 104 MEQ/L Carbon Dioxide Level 28.5 MEQ/L Anion Gap 7 MEQ/L Estimat Glomerular Filtration Rate 34 ML/MIN Differential Diagnosis Differential diagnosis includes cerumen impaction, Mnire's disease, labyrinthitis, benign positional vertigo, orthostatic hypotension, cerebellar infarct, intracranial hemorrhage, hyponatremia, arrhythmia. Narrative Course IV was established, labs are drawn and sent, and the patient was placed on cardiac telemetry monitoring and continuous pulse oximetry monitoring. EKG was ordered and interpreted. CT the brain was obtained, the patient cannot have an MRI secondary to pacemaker. The patient's dizziness is only with standing upright and ambulating, not at rest, I doubt a true cerebellar infarct. However , since his been ongoing for 2 days, will rule out intracranial hemorrhage. The patient's neck pain is tender to palpation with movement, appears to be musculoskeletal, I do not believe this is related to a subarachnoid hemorrhage. The patient was signed out to the oncoming physician at 5 PM. If workup is unremarkable, patient is stable for discharge home and outpatient follow-up. Diagnosis Primary Impression: Dizziness Additional Impression: Neck pain Condition: Stable Austin Padilla MD Jun 09, 2017 16:07
[2017-06-09 16:39] LABS: AUTOMATED NEUTROPHIL # 6.4 TH/MM3 (1.8-7.7); BASOPHIL % 0.4 % (0.0-2.0); EOSINOPHIL # 0.1 TH/MM3 (0-0.4); EOSINOPHIL % 0.7 % (0.0-4.0); HEMOGLOBIN 14.3 GM/DL (13.0-17.0); LYMPH % 7.3 % (9.0-44.0); LYMPHOCYTE # 0.6 TH/MM3 (1.0-4.8); MEAN CELL VOLUME 102.8 FL (80.0-100.0); MEAN CORPUSCULAR HEMOGLOBIN 34.2 PG (27.0-34.0); MEAN CORPUSCULAR HGB CONC 33.2 % (32.0-36.0); MEAN PLATELET VOLUME 8.6 FL (7.0-11.0); MONO % 8.9 % (0.0-8.0); MONOCYTE # 0.7 TH/MM3 (0-0.9); NEUT % 82.7 % (16.0-70.0); PLATELET COUNT 198 TH/MM3 (150-450); RED BLOOD COUNT 4.18 MIL/MM3 (4.50-5.90); RED CELL DISTRIBUTION WIDTH 15.4 % (11.6-17.2); WHITE BLOOD COUNT 7.8 TH/MM3 (4.0-11.0)
[2017-06-09 16:50] LABS: ALBUMIN 4.1 GM/DL (3.4-5.0); ALT (GPT) 17 U/L (12-78); AST (GOT) 24 U/L (15-37); BICARBONATE 28.5 MEQ/L (21.0-32.0); BLOOD UREA NITROGEN 45 MG/DL (7-18); CALCIUM 9.9 MG/DL (8.5-10.1); CHLORIDE 104 MEQ/L (98-107); CREATININE 1.89 MG/DL (0.60-1.30); GLOMERULAR FILTRATION RATE 34 ML/MIN (>89); GLUCOSE,RANDOM 101 MG/DL (74-106); MAGNESIUM 2.6 MG/DL (1.5-2.5); SODIUM (NA) 139 MEQ/L (136-145)
[2017-06-09 16:53] LABS: ALKALINE PHOSPHATASE 100 U/L (45-117); TOTAL BILIRUBIN ADULT 0.6 MG/DL (0.2-1.0); TOTAL PROTEIN 8.8 GM/DL (6.4-8.2)
--- NOTE | 2017-06-09 17:15 | RADRPT ---
EXAM DATE/TIME: 06/09/2017 17:02 [facility] COMPARISON: No previous studies available for comparison. INDICATIONS : Dizziness, with neck pain. RADIATION DOSE: 34.35 CTDIvol (mGy) MEDICAL HISTORY : Cardiovascular disease. Hypertension. Carcinoma, prostate.Afib; Diabetes SURGICAL HISTORY : Pacemaker. Hiatial hernia, Chemo ENCOUNTER: Initial ACUITY: 3 days PAIN SCALE: 0/10 LOCATION: cranial TECHNIQUE: Multiple contiguous axial images were obtained of the head. Using automated exposure control and adj ustment of the mA and/or kV according to patient size, radiation dose was kept as low as reasonably a chievable to obtain optimal diagnostic quality images. DICOM format image data is available electro nically for review and comparison. FINDINGS: CEREBRUM: The ventricles are normal for age. No evidence of midline shift, mass lesion, hemorrhage or acute in farction. No extra-axial fluid collections are seen. POSTERIOR FOSSA: The cerebellum and brainstem are intact. The 4th ventricle is midline. The cerebellopontine angle i s unremarkable. EXTRACRANIAL: The visualized portion of the orbits is intact. SKULL: The calvaria is intact. No evidence of skull fracture. CONCLUSION: No acute intracranial findings. Brian Olguin MD on June 09, 2017 at 17:10 Board Certified Radiologist. This report was verified electronically.
[2017-06-09 17:21] VITALS: BP_SYST 150; BP_SYST 154; BP_SYST 166; BP_DIAS 74; BP_DIAS 78; BP_DIAS 79; PULSE 75
--- NOTE | 2017-06-09 18:35 | PD ---
Data Data Last Documented VS Vital Signs Date Time Temp Pulse Resp B/P (MAP) Pulse Ox O2 Delivery O2 Flow Rate FiO2 06/09/17 17:21 75 166/79 (108) 71 154/78 (103) 71 150/74 (99) 06/09/17 14:06 98.0 20 95 Room Air Orders Orders Electrocardiogram (06/09/17 15:59) Complete Blood Count With Diff (06/09/17 15:59) Comprehensive Metabolic Panel (06/09/17 15:59) Magnesium (Mg) (06/09/17 15:59) Ct Brain W/O Iv Contrast(Rout) (06/09/17 15:59) Ecg Monitoring (06/09/17 15:59) Iv Access Insert/Monitor (06/09/17 15:59) Oximetry (06/09/17 15:59) Sodium Chloride 0.9% Flush (Ns Flush) (06/09/17 16:00) Orthostatic Vital Signs (06/09/17 15:59) Sodium Chlorid 0.9% 500 Ml Inj (Ns 500 M (06/09/17 16:00) ^ Other Nursing Orders (06/09/17 15:59) Labs Laboratory Tests Test 06/09/17 16:10 White Blood Count 7.8 TH/MM3 Red Blood Count 4.18 MIL/MM3 Hemoglobin 14.3 GM/DL Hematocrit 43.0 % Mean Corpuscular Volume 102.8 FL Mean Corpuscular Hemoglobin 34.2 PG Mean Corpuscular Hemoglobin Concent 33.2 % Red Cell Distribution Width 15.4 % Platelet Count 198 TH/MM3 Mean Platelet Volume 8.6 FL Neutrophils (%) (Auto) 82.7 % Lymphocytes (%) (Auto) 7.3 % Monocytes (%) (Auto) 8.9 % Eosinophils (%) (Auto) 0.7 % Basophils (%) (Auto) 0.4 % Neutrophils # (Auto) 6.4 TH/MM3 Lymphocytes # (Auto) 0.6 TH/MM3 Monocytes # (Auto) 0.7 TH/MM3 Eosinophils # (Auto) 0.1 TH/MM3 Basophils # (Auto) 0.0 TH/MM3 CBC Comment DIFF FINAL Differential Comment Blood Urea Nitrogen 45 MG/DL Creatinine 1.89 MG/DL Random Glucose 101 MG/DL Total Protein 8.8 GM/DL Albumin 4.1 GM/DL Calcium Level 9.9 MG/DL Magnesium Level 2.6 MG/DL Alkaline Phosphatase 100 U/L Aspartate Amino Transf (AST/SGOT) 24 U/L Alanine Aminotransferase (ALT/SGPT) 17 U/L Total Bilirubin 0.6 MG/DL Sodium Level 139 MEQ/L Potassium Level 4.5 MEQ/L Chloride Level 104 MEQ/L Carbon Dioxide Level 28.5 MEQ/L Anion Gap 7 MEQ/L Estimat Glomerular Filtration Rate 34 ML/MIN [facility] Supervised Visit with AROLDO: No Narrative Course Case is checked out to me by Dr. Padilla at 5 PM. Reviewed the entirety of the workup. He had recommended discharge of the brain CT was negative. Brain CT is negative. Patient's had some vague dizziness but no objective neurologic deficit He looks comfortable He's got some muscular neck pain He does not want any pain medication. He tried a muscle relaxer and it made him very drowsy and sedated. I recommended he contact his primary care physician for recheck Advised him to return if he has significant worsening Case reviewed with the niece who is at bedside and questions answered Diagnosis Primary Impression: Dizziness Additional Impression: Neck pain Additional Instruction: The patient was advised to follow up with their physician and return if they worsen. Med/Other Pt SpecificInfo: Other Disposition: 01 DISCHARGE HOME Condition: Stable Nolan La MD Jun 09, 2017 18:35
--- NOTE | 2017-06-11 13:38 | EKG ---
Date Performed: 06/09/2017 Time Performed: 17:12:58 PTAGE: 82 years EKG: ATRIAL FIBRILLATION WITH 100% VENTRICULAR PACING Compared to prior tracing no significant c hange ABNORMAL RHYTHM ECG NO PREVIOUS TRACING DOCTOR: Joselito Conteh Interpretating Date/Time 06/11/2017 13:38:28
== END 2017-06-09 19:08 | disposition home or self-care (01) ==
LOC: NEPD 14:05
DX: R42 Dizziness and giddiness (principal); M54.2 Cervicalgia; R11.0 Nausea; R51 Headache; I48.91 Unspecified atrial fibrillation; R94.31 Abnormal electrocardiogram [ECG] [EKG]; E11.9 Type 2 diabetes mellitus without complications; I10 Essential (primary) hypertension; K90.0 Celiac disease
CPT/HCPCS: 70450; 80053; 83735; 85025; 93005; 96360; 96361; 99285; J7040

== ENCOUNTER 2017-12-23 12:46 | Observation (INO) ==
[2017-12-23] MEDS ORDERED: Iohexol 350 MG/ML 50 ML Vial (for Rad Diag) IVCONTRAST ONE (12:47)
[2017-12-23] MEDS ORDERED: Morphine Inj 4 MG/ML Vial IV.PUSH ONE (13:03)
--- NOTE | 2017-12-23 13:07 | ED ---
HPI General Chief Complaint: Abdominal Pain Stated Complaint: CA Pt/left side pain Time Seen by Provider: 12/23/17 13:03 Source: patient Mode of arrival: ambulatory Limitations: no limitations History of Present Illness HPI narrative: 82-year-old male patient presents to the ER today, states that yesterday he has sudden onset of left flank and left upper quadrant abdominal pains that started when he turned, and since then it has been hurting more, and has become more diffuse over the abdomen. He denies any nausea, vomiting, fevers, diarrhea, or other symptoms. He states the pain is currently a 5-6 out of 10. He is not sure whether there are any exacerbating alleviating factors. Related Data Home Medications Medication Instructions Recorded Confirmed allopurinol 300 mg PO DAILY 12/23/17 12/23/17 aspirin [Aspirin Childrens] 81 mg PO DAILY 12/23/17 12/23/17 bumetanide 0.5 mg PO DAILY 12/23/17 12/23/17 coenzyme Q10 [Co Q-10] 100 mg PO DAILY 12/23/17 12/23/17 finasteride 5 mg PO DAILY 12/23/17 12/23/17 isosorbide mononitrate 10 mg PO HS 12/23/17 12/23/17 lisinopril 2.5 mg PO DAILY 12/23/17 12/23/17 magnesium 500 mg PO DAILY 12/23/17 12/23/17 metoprolol succinate 50 mg PO DAILY 12/23/17 12/23/17 dxoewcyr-sea-DE-lycopen-lutein 1 tab PO DAILY 12/23/17 12/23/17 [Centrum Silver] pantoprazole 40 mg PO DAILY 12/23/17 12/23/17 polyethylene glycol 3350 [Miralax] 17 g PO DAILY 12/23/17 12/23/17 pravastatin 20 mg PO DAILY 12/23/17 12/23/17 tramadol 50 mg PO Q8HR PRN 12/23/17 12/23/17 vit C-vit M-aebgpi-cvqa-lutein 12/23/17 [PreserVision Lutein] Allergies Allergy/AdvReac Type Severity Reaction Status Date / Time No Known Allergies Unknown Uncoded 06/09/17 15:44 Review of Systems Except as stated in HPI: all other systems reviewed are negative PMFSH History History Provided By: Patient Medical History Medical History DVT (deep venous thrombosis) (Acute) Hypertension (Acute) Kidney damage (Acute) Umbilical hernia (Acute) Acid reflux (Acute) Afib (Acute) Cardiac pacemaker (Acute) Gout (Acute) Hard of hearing (Acute) Hypercholesteremia (Acute) Prostate cancer (Acute) Surgical History Surgical History H/O heart bypass surgery (Acute) Social History Social History Second Hand Smoke Exposure: No Smoking Status: Former smoker Tobacco Type: Cigarettes How Often Do You Have a Drink Containing Alcohol: Never Recent Travel in [place] within the Last 8 Weeks: No Recent Out of Country Travel within the Last 8 Weeks: No Exam Narrative Exam Narrative: GENERAL: Well-developed elderly white male patient currently in mild distress. Awake and oriented 3. SKIN: Focused skin assessment warm/dry. HEAD: Atraumatic. Normocephalic. EYES: Pupils equal and round. No scleral icterus. No injection or drainage. ENT: No nasal bleeding or discharge. Mucous membranes pink and moist. NECK: Trachea midline. No JVD. CARDIOVASCULAR: Regular rate and rhythm. No murmur appreciated. RESPIRATORY: No accessory muscle use. Clear to auscultation. Breath sounds equal bilaterally. GASTROINTESTINAL: Abdomen soft, left upper quadrant tenderness without guarding rebound, nondistended. Hepatic and splenic margins not palpable. BACK: No CVA tenderness. No rash. No point tenderness on palpation of the spine. MUSCULOSKELETAL: No obvious deformities. No clubbing. No cyanosis. No edema. NEUROLOGICAL: Awake and alert. No obvious cranial nerve deficits. Motor grossly within normal limits. Normal speech. PSYCHIATRIC: Appropriate mood and affect; insight and judgment normal. Course Hospital Course: Lab work shows leukocytosis, BUN and creatinine are elevated, UA shows significant UTI. CAT scan is showing a obstructive uropathy that is worsening in the left side and prostate tumors notable, and the case had been discussed with Dr. Dan who is recommending that the patient get nephrostomy tube. At this point, I have discussed the findings with the patient and have also discussed the findings with Dr. ingram's who is covering for patient's urology group, and he is recommending as well to get the nephrostomy tube. Patient will need IV antibiotics for the UTI and kidney infection Initial Documented Vital Signs Temperature 97.4 F L 12/23/17 12:51 Pulse Rate 101 H 12/23/17 12:51 Respiratory Rate 20 12/23/17 12:51 Blood Pressure 171/96 H 12/23/17 12:51 Pulse Oximetry 97 12/23/17 12:51 Last Documented Vital Signs Temperature 97.4 F L 12/23/17 12:51 Pulse Rate 94 H 12/23/17 13:05 Respiratory Rate 16 12/23/17 13:05 Blood Pressure 179/102 H 12/23/17 13:05 Pulse Oximetry 97 12/23/17 13:35 Medical Decision Making Differential Diagnosis Differential Diagnosis: Musculoskeletal versus renal colic versus pancreatitis versus other acute intra-abdominal processes Lab Data Result diagrams: 12/23/17 13:15 12/23/17 13:15 Lab Results 12/23/17 12/23/17 12/23/17 Range/Units 13:15 13:15 13:37 WBC 14.5 H (4.0-11.0) th/mm3 RBC 4.24 L (4.50-5.90) mil/mm3 Hgb 14.5 (13.0-17.0) gm/dL Hct 43.7 (39.0-51.0) % MCV 103.0 H (80.0-100.0) fL MCH 34.3 H (27.0-34.0) pg MCHC 33.3 (32.0-36.0) % RDW 15.8 (11.6-17.2) % Plt Count 193 (150-450) th/mm3 MPV 8.0 (7.0-11.0) fL Neut % (Auto) 88.2 H (16.0-70.0) % Lymph % (Auto) 4.0 L (9.0-44.0) % [place] % (Auto) 7.4 (0.0-8.0) % Eos % (Auto) 0.1 (0.0-4.0) % Baso % (Auto) 0.3 (0.0-2.0) % Neut # (Auto) 12.8 H (1.8-7.7) th/mm3 Lymph # (Auto) 0.6 L (1.0-4.8) th/mm3 [place] # (Auto) 1.1 H (0.0-0.9) th/mm3 Eos # (Auto) 0.0 (0.0-0.4) th/mm3 Baso # (Auto) 0.0 (0.0-0.2) th/mm3 WBC Differential . Differential Comment Auto diff final PT (9.8-11.6) sec INR Ratio APTT (24.3-30.1) sec Sodium 138 (136-145) meq/L Potassium 4.5 (3.5-5.1) meq/L Chloride 102 (98-107) meq/L Carbon Dioxide 26.1 (21.0-32.0) meq/L Anion Gap 10 (5-15) meq/L BUN 34 H (7-18) mg/dL Creatinine 1.78 H (0.60-1.30) mg/dL Estimated GFR 37 L (>89) mL/min Random Glucose 136 H (74-106) mg/dL Calcium 9.6 (8.5-10.1) mg/dL Total Bilirubin 0.6 (0.2-1.0) mg/dL AST 23 (15-37) U/L ALT 20 (12-78) U/L Alkaline Phosphatase 95 (45-117) U/L Total Protein 8.2 (6.4-8.2) g/dL Albumin 4.0 (3.4-5.0) g/dL Lipase 143 (73-393) U/L Urine Color [place] (Yellw/Straw) Urine Clarity Cloudy H (Clear) Urine pH 6.0 (5.0-8.5) Ur Specific [place] 1.017 (1.002-1.035) Urine Protein 100 H (Neg-Trace) mg/dL Urine Glucose (UA) Negative (Negative) mg/dL Urine Ketones Negative (Negative) mg/dL Urine Occult Blood Large H (Negative) Urine Nitrate Negative (Negative) Urine Bilirubin Negative (Negative) Urine Urobilinogen Less than 2 (Less than 2) mg/dL Ur Leukocyte Esterase Moderate H (Negative) Urine RBC (0-3) /hpf Urine WBC 52 H (0-5) /hpf Urine Bacteria Occasional H (None) /hpf Micro UA Comment Culture indicated Urine Culture Comments Culture indicated 12/23/17 Range/Units 15:00 WBC (4.0-11.0) th/mm3 RBC (4.50-5.90) mil/mm3 Hgb (13.0-17.0) gm/dL Hct (39.0-51.0) % MCV (80.0-100.0) fL MCH (27.0-34.0) pg MCHC (32.0-36.0) % RDW (11.6-17.2) % Plt Count (150-450) th/mm3 MPV (7.0-11.0) fL Neut % (Auto) (16.0-70.0) % Lymph % (Auto) (9.0-44.0) % [place] % (Auto) (0.0-8.0) % Eos % (Auto) (0.0-4.0) % Baso % (Auto) (0.0-2.0) % Neut # (Auto) (1.8-7.7) th/mm3 Lymph # (Auto) (1.0-4.8) th/mm3 [place] # (Auto) (0.0-0.9) th/mm3 Eos # (Auto) (0.0-0.4) th/mm3 Baso # (Auto) (0.0-0.2) th/mm3 WBC Differential Differential Comment PT 10.7 (9.8-11.6) sec INR 1.1 Ratio APTT 28.7 (24.3-30.1) sec Sodium (136-145) meq/L Potassium (3.5-5.1) meq/L Chloride (98-107) meq/L Carbon Dioxide (21.0-32.0) meq/L Anion Gap (5-15) meq/L BUN (7-18) mg/dL Creatinine (0.60-1.30) mg/dL Estimated GFR (>89) mL/min Random Glucose (74-106) mg/dL Calcium (8.5-10.1) mg/dL Total Bilirubin (0.2-1.0) mg/dL AST (15-37) U/L ALT (12-78) U/L Alkaline Phosphatase (45-117) U/L Total Protein (6.4-8.2) g/dL Albumin (3.4-5.0) g/dL Lipase (73-393) U/L Urine Color (Yellw/Straw) Urine Clarity (Clear) Urine pH (5.0-8.5) Ur Specific [place] (1.002-1.035) Urine Protein (Neg-Trace) mg/dL Urine Glucose (UA) (Negative) mg/dL Urine Ketones (Negative) mg/dL Urine Occult Blood (Negative) Urine Nitrate (Negative) Urine Bilirubin (Negative) Urine Urobilinogen (Less than 2) mg/dL Ur Leukocyte Esterase (Negative) Urine RBC (0-3) /hpf Urine WBC (0-5) /hpf Urine Bacteria (None) /hpf Micro UA Comment Urine Culture Comments Imaging Data Radiologist's impression: Abdomen/Pelvis CT 12/23/17 13:03 CONCLUSION: 1. Severe left hydronephrosis worse than on the prior study with hydroureter to the ureterovesical junction. The patient has history of prostate carcinoma and there is bladder wall thickening likely related to spread of neoplasm obstructing the ureterovesical junction. Discharge Plan Discharge Disposition Patient Disposition: 30 Still Patient Discharge Condition Condition: Stable Discharge Details Anticipated Discharge Date: 12/23/17 Diagnosis: Obstruction of urethra, Infection of kidney Physicians Team ED Provider: Nam Garza Primary Care Provider: UNKNOWN, Rxs /Orders / Referrals /Forms Prescriptions: No Action aspirin [Aspirin Childrens] 81 mg Tablet,Chewable 81 mg PO DAILY RF: 0 pravastatin 20 mg Tablet 20 mg PO DAILY RF: 0 rynwgxun-djm-SK-lycopen-lutein [Centrum Silver] 0.4-300-250 mg-mcg-mcg Tablet 1 tab PO DAILY RF: 0 metoprolol succinate 50 mg Tablet Extended Release 24 Hr 50 mg PO DAILY RF: 0 pantoprazole 40 mg Tablet,Delayed Release (Dr/Ec) 40 mg PO DAILY RF: 0 allopurinol 300 mg Tablet 300 mg PO DAILY RF: 0 finasteride 5 mg 5 mg PO DAILY RF: 0 isosorbide mononitrate 10 mg Tablet 10 mg PO HS RF: 0 lisinopril 2.5 mg Tablet 2.5 mg PO DAILY RF: 0 tramadol 50 mg Tablet 50 mg PO Q8HR PRN (Reason: Acute Pain) RF: 0 bumetanide 0.5 mg Tablet 0.5 mg PO DAILY RF: 0 polyethylene glycol 3350 [Miralax] 17 gram Powder In Packet 17 g PO DAILY RF: 0 magnesium 250 mg Tablet 500 mg PO DAILY RF: 0 coenzyme Q10 [Co Q-10] 100 mg Capsule 100 mg PO DAILY RF: 0 vit C-vit N-yrdouf-dmyj-lutein [PreserVision Lutein] 226 mg-200 unit -5 mg- 0.8 mg Capsule RF: 0 Status ED Status: Pending Admission
[2017-12-23 13:31] LABS: Baso % (Auto) 0.3 % (0.0-2.0); Eos % (Auto) 0.1 % (0.0-4.0); Hematocrit 43.7 % (39.0-51.0); Hemoglobin 14.5 gm/dL (13.0-17.0); Lymph # (Auto) 0.6 th/mm3 (1.0-4.8); Mean Corpuscular HGB Conc 33.3 % (32.0-36.0); Mean Corpuscular Hemoglobin 34.3 pg (27.0-34.0); Mono # (Auto) 1.1 th/mm3 (0.0-0.9); Mono % (Auto) 7.4 % (0.0-8.0); Neut # (Auto) 12.8 th/mm3 (1.8-7.7); Neut % (Auto) 88.2 % (16.0-70.0); Platelet Count 193 th/mm3 (150-450); Red Blood Count 4.24 mil/mm3 (4.50-5.90); Red Cell Distribution Width 15.8 % (11.6-17.2); White Blood Count 14.5 th/mm3 (4.0-11.0)
[2017-12-23 13:51] LABS: Alkaline Phosphatase 95 U/L (45-117); Total Protein 8.2 g/dL (6.4-8.2)
[2017-12-23 14:04] LABS: Alanine Aminotransferase 20 U/L (12-78); Anion Gap 10 meq/L (5-15); Aspartate Aminotransferase 23 U/L (15-37); Blood Urea Nitrogen 34 mg/dL (7-18); Calcium 9.6 mg/dL (8.5-10.1); Carbon Dioxide 26.1 meq/L (21.0-32.0); Chloride 102 meq/L (98-107); Glomerular Filtration Rate 37 mL/min (>89); Glucose,Random 136 mg/dL (74-106); Lipase 143 U/L (73-393); Potassium 4.5 meq/L (3.5-5.1); Sodium 138 meq/L (136-145)
[2017-12-23 14:17] LABS: Bacteria,Urine Occasional /hpf; Bilirubin,Urine Negative (Negative); Clarity,Urine Cloudy (Clear); Color,Urine Amber (Yellw/Straw); Glucose,Urine (UA) Negative (Negative); Leukocyte Esterase,Urine Moderate (Negative); Nitrite,Urine Negative (Negative); Specific Gravity,Urine 1.017 (1.002-1.035)
--- NOTE | 2017-12-23 15:21 | CT ---
EXAM DATE: 12/23/2017 2:50 PM EDT AGE/SEX: 82 years / Male INDICATIONS: Left lower abdomen pain for two days. CLINICAL DATA: This is the patient's initial encounter. Patient reports that signs and symptoms have been present for 2 days and indicates a pain score of 7/10. MEDICAL/SURGICAL HISTORY: Hypertension. CABG. ORAL CONTRAST: No oral contrast ingested. RADIATION DOSE: 6.64 CTDI (mGy) COMPARISON: [facility] [place], CT ABDOMEN & PELVIS W/O CONTRAST, 06/19/2016. . TECHNIQUE: Multiple contiguous axial images were obtained through the abdomen and pelvis following b olus infusion of 50 ml Visipaque 320 (iodixanol) nonionic water-soluble contrast as a single exam d ose. No oral contrast ingested. Using automated exposure control and adjustment of the mA and/or kV according to patient size, radiation dose was kept as low as reasonably achievable to obtain optimal diagnostic quality images. DICOM format image data is available electronically for review and compar jomar. FINDINGS: Examination of the lung bases demonstrates no abnormality. No pleural fluid is identified. No pulmona ry nodules are present. The liver and spleen are normal in size and no focal defects are identified. There are multiple gallstones within the gallbladder without wall thickening or pericholecystic flui d the largest measuring 3 mm. The pancreas demonstrates no evidence of mass and there is no dilatatio n of the pancreatic duct. The adrenal glands are unremarkable. Multiple right renal cysts are presen t. There is severe left hydronephrosis and hydroureter to the level of the ureteral vesicle junction where there is bladder wall thickening and enlarged prostate. Markers are present in the prostate gla nd. No abnormally enlarged lymph nodes are identified. CONCLUSION: 1. Severe left hydronephrosis worse than on the prior study with hydroureter to the ureterovesical j unction. The patient has history of prostate carcinoma and there is bladder wall thickening likely re lated to spread of neoplasm obstructing the ureterovesical junction. Electronically signed by: Ramone Dan MD 12/23/2017 3:20 PM EDT
[2017-12-23 15:53] LABS: Activated Partial Thrombo Time 28.7 sec (24.3-30.1); INR 1.1 Ratio; Prothrombin Time 10.7 sec (9.8-11.6)
[2017-12-23] MEDS ORDERED: Piperacil/Tazo 4.5 GM Premix 4.5 GM/100 ML BAG IV.SIG STA (16:23)
[2017-12-23] MEDS ORDERED: Bisacodyl 10 MG Supp RECTAL PRN (16:26)
[2017-12-23] MEDS ORDERED: Acetaminophen 325 MG Tablet PO PRN ×2 (16:26→16:29)
[2017-12-23] MEDS ORDERED: Morphine Inj 4 MG/ML Vial IV.PUSH PRN (16:29)
[2017-12-23] MEDS ORDERED: Naloxone Inj 0.4 MG/ML Vial IV.PUSH PRN (16:29)
[2017-12-23] MEDS ORDERED: fentaNYL Citrate Inj 100 MCG/2 ML Ampul ONE (16:33)
--- NOTE | 2017-12-23 17:36 | P.HP ---
History of Present Illness Primary Care Physician: UNKNOWN History of Present Illness: This is an 82-year-old male who presented to the emergency room because of left flank/abdominal pain. Started last night as intermittent positional moderate sharp pain becoming more intense over the course of the night denies fever, chills, nausea, vomiting, UTI symptoms constipation and diarrhea. In the emergency department he was found to have obstructive uropathy related to his prostate cancer status post XRT and ADT in 2012. 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 Underwent emergent nephrostomy as recommended by IR and . Patient seen in recovery room. States his pain is improved and pleuritic when he takes a deep breath. He is draining dark blood from his left nephrostomy. All other systems reviewed negative - Diagnosis (1) Obstruction of urethra Inpatient Certification: I certify that the inpatient services were ordered in accordance with Medicare regulations governing the order. This includes certification that hospital inpatient services are reasonable and necessary and in the case of services not specified as inpatient-only under 42 CFR 419.22(n), that they are appropriately provided as inpatient services in accordance to with the 2-midnight benchmark under 43 CFR 412.3(e) Review of Systems All other systems reviewed negative except as stated in HPI PMFSH - History History Provided By: Patient - Medical History Medical History: Medical History (Last Updated 12/23/17 @ 13:35 by Marian Kumar) DVT (deep venous thrombosis) Hypertension Kidney damage Umbilical hernia Acid reflux Afib Cardiac pacemaker Gout Hard of hearing Hypercholesteremia Prostate cancer - Surgical History Surgical History: Surgical History (Last Reviewed 12/23/17 @ 13:16 by Marian Kumar) H/O heart bypass surgery - Family History Family History: Family History (Last Updated 12/23/17 @ 17:32 by Ameya Davison MD) Other Family history non-contributory - Tobacco History Second Hand Smoke Exposure: No Smoking Status: Former smoker Tobacco Type: Cigarettes - Alcohol History How Often Do You Have a Drink Containing Alcohol: Never - Travel History Recent Travel in the [place] Within the Last 8 Weeks: No Recent Travel Out of the Country Within the Last 8 Weeks: No - Immunization History Tetanus Immunization: Unsure Hx Influenza Vaccine This Season: Yes Medications and Allergies Active Medications: Active Medications Acetaminophen (Tylenol) 650 mg PO Q4H PRN PRN Reason: Temp > 100.4 Acetaminophen (Tylenol) 650 mg PO Q6HR PRN PRN Reason: PAIN SCALE 1 TO 2 Hydrocodone Bitart/Acetaminophen ([place] 7.5/325) 1 tab PO Q4H PRN PRN Reason: PAIN SCALE 6 TO 10 Allopurinol (Zyloprim) 300 mg PO DAILY [facility] Bisacodyl (Dulcolax Supp) 10 mg RECTAL DAILY PRN PRN Reason: SEVERE CONSITIPATION Bumetanide (Bumex) 0.5 mg PO DAILY [facility] Finasteride (Proscar) 5 mg PO DAILY [facility] Sodium Chloride (1/2 Normal Saline Inj) 1,000 mls @ 60 mls/hr IV.CONT .[id number] JENNIFER Ceftriaxone Sodium 1,000 mg/ (Sodium Chloride) 100 mls @ 200 mls/hr IV.SIG Q24H [facility] Isosorbide Mononitrate (Ismo) 10 mg PO HS JENNIFER Lactulose (Lactulose Liq) 30 ml PO DAILY PRN PRN Reason: SEVERE CONSITIPATION Lisinopril (Prinivil) 2.5 mg PO DAILY [facility] Magnesium Oxide (Mag-Ox) 400 mg PO DAILY [facility] Metoprolol Succinate (Toprol Xl) 50 mg PO DAILY [facility] Morphine Sulfate (Morphine Inj) 2 mg IV.PUSH Q6H PRN PRN Reason: BREAKTHROUGH PAIN Naloxone HCl (Narcan Inj) 0.4 mg IV.PUSH UNSCH PRN PRN Reason: SEE LABEL COMMENTS Ondansetron HCl (Zofran Odt) 4 mg PO Q6H PRN PRN Reason: NAUSEA OR VOMITING Pantoprazole Sodium (Protonix) 40 mg PO DAILY [facility] Polyethylene Glycol (Miralax) 17 gm PO DAILY [facility] Pravastatin Sodium (Pravachol) 20 mg PO DAILY [facility] Senna/Docusate Sodium ([place]-Colace) 1 tab PO BID [facility] Sennosides (Senokot) 17.2 mg PO Q12H PRN PRN Reason: Moderate Constipation Sodium Chloride (Ns Flush) 2 ml IV.FLUSH PRN PRN PRN Reason: FLUSH AFTER USING IV ACCESS Last Admin: 12/23/17 13:25 Dose: 2 ml Tramadol HCl (Ultram) 50 mg PO Q4H PRN PRN Reason: PAIN SCALE 3 TO 5 Allergies Allergy/AdvReac Type Severity Reaction Status Date / Time No Known Allergies Unknown Uncoded 06/09/17 15:44 Home Medications Medication Instructions Recorded Confirmed Type allopurinol 300 mg PO DAILY 12/23/17 12/23/17 History aspirin [Aspirin Childrens] 81 mg PO DAILY 12/23/17 12/23/17 History bumetanide 0.5 mg PO DAILY 12/23/17 12/23/17 History coenzyme Q10 [Co Q-10] 100 mg PO DAILY 12/23/17 12/23/17 History finasteride 5 mg PO DAILY 12/23/17 12/23/17 History isosorbide mononitrate 10 mg PO HS 12/23/17 12/23/17 History lisinopril 2.5 mg PO DAILY 12/23/17 12/23/17 History magnesium 500 mg PO DAILY 12/23/17 12/23/17 History metoprolol succinate 50 mg PO DAILY 12/23/17 12/23/17 History lxlcssfc-yes-UR-lycopen-lutein 1 tab PO DAILY 12/23/17 12/23/17 History [Centrum Silver] pantoprazole 40 mg PO DAILY 12/23/17 12/23/17 History polyethylene glycol 3350 [Miralax] 17 g PO DAILY 12/23/17 12/23/17 History pravastatin 20 mg PO DAILY 12/23/17 12/23/17 History tramadol 50 mg PO Q8HR PRN 12/23/17 12/23/17 History vit C-vit J-wbbazx-fypg-lutein 12/23/17 History [PreserVision Lutein] Exam Vital signs: Vital Signs 12/23/17 12:51 12/23/17 13:05 12/23/17 13:35 Temperature 97.4 F L Pulse Rate 101 H 94 H Respiratory Rate 20 16 Blood Pressure 171/96 H 179/102 H Pulse Oximetry 97 98 97 Intake & Output 12/22/17 12/23/17 12/23/17 18:59 06:59 18:59 Weight 63.503 kg Narrative: GENERAL: Well-developed and well-nourished in no distress. He is hard of hearing SKIN: Warm and dry. HEAD: Atraumatic. Normocephalic. EYES: Pupils equal and round. No scleral icterus. No injection or drainage. ENT: No nasal bleeding or discharge. Mucous membranes pink and moist. NECK: Trachea midline. No JVD. CARDIOVASCULAR: Regular rate and rhythm. RESPIRATORY: No accessory muscle use. Clear to auscultation. Breath sounds equal bilaterally. GASTROINTESTINAL: Abdomen soft, tender left upper quadrant. He has nephrostomy in place left flank draining dark blood MUSCULOSKELETAL: Extremities without clubbing, cyanosis, or edema. No obvious deformities. NEUROLOGICAL: Awake and alert. No obvious cranial nerve deficits. Motor grossly within normal limits. Five out of 5 muscle strength in the arms and legs. Normal speech. PSYCHIATRIC: Appropriate mood and affect; insight and judgment normal. Results - Labs CBC & Chem 7: 12/23/17 13:15 12/23/17 13:15 Labs: Laboratory Results - last 24 hr 12/23/17 12/23/17 12/23/17 13:15 13:15 13:37 WBC 14.5 H RBC 4.24 L Hgb 14.5 Hct 43.7 MCV 103.0 H MCH 34.3 H MCHC 33.3 RDW 15.8 Plt Count 193 MPV 8.0 Neut % (Auto) 88.2 H Lymph % (Auto) 4.0 L [place] % (Auto) 7.4 Eos % (Auto) 0.1 Baso % (Auto) 0.3 Neut # (Auto) 12.8 H Lymph # (Auto) 0.6 L [place] # (Auto) 1.1 H Eos # (Auto) 0.0 Baso # (Auto) 0.0 WBC Differential . Differential Comment Auto diff final PT INR APTT Sodium 138 Potassium 4.5 Chloride 102 Carbon Dioxide 26.1 Anion Gap 10 BUN 34 H Creatinine 1.78 H Estimated GFR 37 L Random Glucose 136 H Calcium 9.6 Total Bilirubin 0.6 AST 23 ALT 20 Alkaline Phosphatase 95 Total Protein 8.2 Albumin 4.0 Lipase 143 Urine Color [place] Urine Clarity Cloudy H Urine pH 6.0 Ur Specific [place] 1.017 Urine Protein 100 H Urine Glucose (UA) Negative Urine Ketones Negative Urine Occult Blood Large H Urine Nitrate Negative Urine Bilirubin Negative Urine Urobilinogen Less than 2 Ur Leukocyte Esterase Moderate H Urine RBC Urine WBC 52 H Urine Bacteria Occasional H Micro UA Comment Culture indicated Urine Culture Comments Culture indicated 12/23/17 15:00 WBC RBC Hgb Hct MCV MCH MCHC RDW Plt Count MPV Neut % (Auto) Lymph % (Auto) [place] % (Auto) Eos % (Auto) Baso % (Auto) Neut # (Auto) Lymph # (Auto) [place] # (Auto) Eos # (Auto) Baso # (Auto) WBC Differential Differential Comment PT 10.7 INR 1.1 APTT 28.7 Sodium Potassium Chloride Carbon Dioxide Anion Gap BUN Creatinine Estimated GFR Random Glucose Calcium Total Bilirubin AST ALT Alkaline Phosphatase Total Protein Albumin Lipase Urine Color Urine Clarity Urine pH Ur Specific [place] Urine Protein Urine Glucose (UA) Urine Ketones Urine Occult Blood Urine Nitrate Urine Bilirubin Urine Urobilinogen Ur Leukocyte Esterase Urine RBC Urine WBC Urine Bacteria Micro UA Comment Urine Culture Comments - Imaging Impressions Abdomen/Pelvis CT 12/23/17 13:03 CONCLUSION: 1. Severe left hydronephrosis worse than on the prior study with hydroureter to the ureterovesical junction. The patient has history of prostate carcinoma and there is bladder wall thickening likely related to spread of neoplasm obstructing the ureterovesical junction. Caprini VTE Risk Assessment Caprini VTE Risk Assessment: Moderate/High Risk (score >= 2) Caprini Risk Assessment Model: Point Value = 1 Point Value = 2 Point Value = 3 Point Value = 5 Age 41-60 Minor surgery BMI > 25 kg/m2 Swollen legs Varicose veins or History of unexplained or recurrent spontaneous Oral contraceptives or hormone replacement Sepsis (< 1 month) Serious lung disease, including pneumonia (< 1 month) Abnormal pulmonary function Acute myocardial infarction Congestive heart failure (< 1 month) History of inflammatory bowel disease Medical patient at bed rest Age 61-74 Arthroscopic surgery Major open surgery (> 45 min) Laparoscopic surgery (> 45 min) Malignancy Confined to bed (> 72 hours) Immobilizing plaster cast Central venous access Age >= 75 History of VTE Family history of VTE Factor V Leiden Prothrombin [id number] Lupus anticoagulant Anticardiolipin antibodies Elevated serum homocysteine Heparin-induced thrombocytopenia Other congenital or acquired thrombophilia Stroke (< 1 month) Elective arthroplasty Hip, pelvis, or leg fracture Acute spinal cord injury (< 1 month) Prophylaxis Regimen: Total Risk Factor Score Risk Level Prophylaxis Regimen 0-1 Low Early ambulation 2 Moderate Order ONE of the following: *Sequential Compression Device (SCD) *Heparin 5000 units SQ BID 3-4 Higher Order ONE of the following medications: *Heparin 5000 units SQ TID *Enoxaparin/Lovenox 40 mg SQ daily (WT < 150 kg, CrCl > 30 mL/min) *Enoxaparin/Lovenox 30 mg SQ daily (WT < 150 kg, CrCl > 10-29 mL/min) *Enoxaparin/Lovenox 30 mg SQ BID (WT < 150 kg, CrCl > 30 mL/min) AND/OR *Sequential Compression Device (SCD) 5 or more Highest Order ONE of the following medications: *Heparin 5000 units SQ TID (Preferred with Epidurals) *Enoxaparin/Lovenox 40 mg SQ daily (WT < 150 kg, CrCl > 30 mL/min) *Enoxaparin/Lovenox 30 mg SQ daily (WT < 150 kg, CrCl > 10-29 mL/min) *Enoxaparin/Lovenox 30 mg SQ BID (WT < 150 kg, CrCl > 30 mL/min) AND *Sequential Compression Device (SCD) Assessment and Plan - Assessment (1) Obstruction of urethra Code(s): N36.8 - Other specified disorders of urethra Status: Acute - Plan This is an 82-year-old male who presented to the emergency room because of left flank/abdominal pain. Started last night as intermittent positional moderate sharp pain becoming more intense over the course of the night denies fever, chills, nausea, vomiting, UTI symptoms constipation and diarrhea. In the emergency department he was found to have obstructive uropathy related to his prostate cancer status post XRT and ADT in 2012. 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 Underwent emergent nephrostomy as recommended by IR and . Obstructive uropathy secondary to prostate cancer. 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 Status post emergent nephrostomy. Pain management with tramadol, Lortab and IV morphine. has been consulted Sepsis secondary to UTI. Patient received IV Zosyn in the emergency department. Start IV Rocephin and follow cultures Hypertension. Uncontrolled secondary to pain. Restart home medications. Monitor with as needed IV Vasotec and clonidine. A. fib. Patient intolerant to anticoagulants including Coumadin and Xarelto. He is only on aspirin which obviously needs to be held at this time. DVT prophylaxis with SCD. Hold pharmacological prophylaxis secondary to GI bleed. Denies history of DVT. Discussed Condition With: pt Discharge Planning: Home health care versus rehab
[2017-12-23] MEDS: Sodium Chloride 0.45 % Inj 1,000 ML IV.CONT SCH (19:02)
[2017-12-23] MEDS: Senna/Docusate Sodium 8.6/50 MG Tablet PO SCH (21:24)
[2017-12-23] MEDS: Isosorbide Mononitrate 20 MG Tablet PO SCH (21:24)
[2017-12-24 07:29] LABS: Baso % (Auto) 0.3 % (0.0-2.0); Eos % (Auto) 0.4 % (0.0-4.0); Hematocrit 31.6 % (39.0-51.0); Hemoglobin 10.6 gm/dL (13.0-17.0); Lymph # (Auto) 0.7 th/mm3 (1.0-4.8); Lymph % (Auto) 6.4 % (9.0-44.0); Mean Corpuscular HGB Conc 33.7 % (32.0-36.0); Mean Corpuscular Hemoglobin 34.2 pg (27.0-34.0); Mean Corpuscular Volume 101.6 fL (80.0-100.0); Mean Platelet Volume 8.6 fL (7.0-11.0); Mono # (Auto) 1.3 th/mm3 (0.0-0.9); Mono % (Auto) 12.6 % (0.0-8.0); Neut # (Auto) 8.4 th/mm3 (1.8-7.7); Neut % (Auto) 80.3 % (16.0-70.0); Platelet Count 135 th/mm3 (150-450); Red Blood Count 3.11 mil/mm3 (4.50-5.90); White Blood Count 10.4 th/mm3 (4.0-11.0)
[2017-12-24 08:29] LABS: Calcium 8.4 mg/dL (8.5-10.1); Carbon Dioxide 25.6 meq/L (21.0-32.0); Potassium 4.8 meq/L (3.5-5.1)
--- NOTE | 2017-12-24 08:52 | MB ---
cc: Roberto Lizarraga MD DATE: 12/24/2017 REASON FOR CONSULTATION: 1. Severe left hydronephrosis. 2. History of bladder cancer. 3. History of prostate cancer. HISTORY OF PRESENT ILLNESS: The patient is an 82-year-old male with a history of bladder cancer in the past, who presented to the [place] ER yesterday with acute onset of severe left flank pain, 10/10 in nature, described it as a severe muscle spasm. Denied nausea, vomiting, fevers, chills or hematuria. The patient had a CT abdomen and pelvis without contrast done, which showed severe left-sided hydronephrosis, worsened compared to a prior CAT scan. Urology was consulted by the ER physician and in discussion with interventional radiologist, elected to proceed with insertion of left nephrostomy tube due to the patient's history. Following placement of left nephrostomy tube, the patient felt significantly much better. His pain is a 2/10 at most. He denies nausea, vomiting, fevers, or chills. He is voiding without complaints. The patient is seen and is followed by Dr. Bell for his multiple urological issues. 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 There was discussion at one time about removing his left kidney and ureter due to recurrence of his cancer in his ureter. However, since the kidney had little function and it was not causing him problems, it was decided to opt for observation. His last cystoscopy by Dr. Bell was about a year ago per the patient. ALLERGIES: NO KNOWN DRUG ALLERGIES. PAST MEDICAL HISTORY: Significant for acid reflux, atrial fibrillation, DVT, hypercholesterolemia, hypertension, bladder cancer, prostate cancer and umbilical hernia. PAST SURGICAL HISTORY: He has a history of heart bypass surgery, history of a cystoscopy and TURBT. FAMILY HISTORY: Denies urolithiasis or genitourinary disease. HOME MEDICATIONS: Include: 1. Pravastatin. 2. Allopurinol. 3. Pantoprazole. 4. Aspirin. 5. Finasteride. 6. Tramadol. 7. Metoprolol. 8. Lisinopril. 9. Isosorbide mononitrate. 10. Bumetanide. 11. Vitamin C. SOCIAL HISTORY: Denies smoking, alcohol or illicit drugs. REVIEW OF SYSTEMS: See HPI. All other systems reviewed, otherwise were negative. PHYSICAL EXAMINATION: VITAL SIGNS: Temperature 98.5, pulse 92, respiratory rate 18, blood pressure 122/64, saturating 97% on 2 liters nasal cannula. GENERAL: He is an alert and oriented x 3, in no apparent distress, pleasant and cooperative gentleman who appears stated age. HEENT: Head is normocephalic, atraumatic. Eyes: No scleral icterus. Extraocular muscles intact. NECK: Supple. Trachea is midline. No JVD. SKIN: Warm and dry. No ulcers or rashes visible. PSYCHIATRIC: Normal affect. Answers questions appropriately. LUNGS: Clear to auscultation bilaterally. No wheezes, rales or rhonchi. HEART: Regular rate and rhythm. No murmurs, gallops or rubs. ABDOMEN: Soft, nontender and nondistended. Positive bowel sounds. GENITOURINARY: His penis is circumcised. Testes descended bilaterally, normal in size consistency without mass. He has a left nephrostomy tube, draining red bloody urine. EXTREMITIES: Nontender. No clubbing, cyanosis or edema. NEUROLOGIC: Cranial nerves 2-12 intact. Strength 5/5 all 4 extremities. LABORATORY STUDIES: Shows a white count of 10.4, hemoglobin 10.6, hematocrit 31.6, platelet count 135. INR 1.1. Sodium 138, potassium 4.5, chloride 102, bicarbonate 26.1, BUN 34, creatinine 1.78, GFR 37. Urine was cloudy with large blood, moderate leukocyte esterase. Culture is currently pending. IMAGING STUDIES: CT abdomen and pelvis without contrast images reviewed by myself and agree with radiologist's report. The patient has severe left-sided hydroureteronephrosis with severe parenchymal thinning, suggesting an element of chronic hydronephrosis on the left side. Also, his bladder also seems irregular and appears to be bladder thickening and possible mass in his bladder as well. ASSESSMENT AND PLAN: The patient is an 82-year-old male with a history of bladder cancer, as well as ureteral transitional cell carcinoma, who presents with severe onset of left flank pain, status post insertion of left nephrostomy tube. PLAN: Recommend continuing nephrostomy tube for now. Continue with antibiotics pending cultures. I would recommend an antegrade nephrostogram prior to discharge to evaluate for any type of obstruction or recurrence of his cancer within his ureter. He can follow up with Dr. Bell as an outpatient for possible cystoscopy and to discuss further treatment options regarding his left kidney. Thank you for this consultation. MD NOE Sequeira/ENID , 08:25 AM , 08:51 AM
[2017-12-24] MEDS ORDERED: Lisinopril 5 MG Tablet PO SCH (09:00)
[2017-12-24] MEDS: Magnesium Oxide 400 MG Tablet PO SCH (09:14)
[2017-12-24] MEDS: Senna/Docusate Sodium 8.6/50 MG Tablet PO SCH ×2 (09:14→20:47)
[2017-12-24] MEDS: Finasteride 5 MG Tablet PO SCH (09:14)
[2017-12-24] MEDS: Polyethylene Glycol 3350 17 GM Packet PO SCH (09:15)
[2017-12-24] MEDS: Allopurinol 300 MG Tablet PO SCH (09:15)
--- NOTE | 2017-12-24 12:52 | IR ---
EXAM DATE: 12/23/2017 6:39 PM EDT AGE/SEX: 82 years / Male INDICATIONS: Patient presents with hydronephrosis in need of nephrostomy tube placement for drainage . CLINICAL DATA: This is the patient's initial encounter. Patient reports that signs and symptoms have been present for 1 day and indicates a pain score of 5/10. MEDICAL/SURGICAL HISTORY: . DVT (deep venous thrombosis)Hypertension Kidney damage Umbilical he rnia Acid reflux Afib Cardiac pacemaker Gout Hard of hearing Hypercholesteremia Prostate cancer . H/ O heart bypass surgery COMPARISON: [facility] [place], ANTEGRADE PYELOGRAM, LEFT, 01/19/2016. . FLUORO TIME (min): 3.59 IMAGE SERIES: 3 SEDATION TIME (min): 15 CONTRAST (cc): 10cc Omnipaque (iohexol) 350 MEDICATION(S): 1 mg midazolam (Versed) IV 50 mcg fentanyl (Sublimaze) IV Vancomycin within 2 hrs of procedure, Ancef (or alternative) within 1 hr of procedure. DEVICE(S): 8 [place] nephrostomy catheter 25cm Expel drainage catheter . . PROCEDURE : 1. Ultrasound-guided puncture of the kidney. 2. Antegrade percutaneous pyelogram. 3. Percutaneous nephrostomy placement. 4. Conscious sedation with continuous EKG and oximetry monitoring. The risks, benefits and alternatives to the procedure were explained and verbal and written consent w as obtained. The site was prepped in sterile fashion. Full sterile technique was used, including ca p, mask, sterile gloves and gown and a large sterile sheet. Hand hygiene and 2% chlorhexidine and/or betadine/alcohol prep was utilized per protocol for cutaneous antisepsis. Sterile gel and sterile probe cover were utilized for ultrasound guidance. The skin and subcutaneous tissues were infiltrate d with local anesthetic solution. With ultrasound and fluoroscopic guidance the selected kidney was punctured and a percutaneous antegr jun pyelogram was performed demonstrating a dilated collecting system. Serial dilatation was perform ed and a prescribed nephrostomy tube was placed within the renal pelvis and sutured in place. The images demonstrate severe hydronephrosis of the renal pelvis. Bloody fluid was returned from the catheter. Conscious sedation was performed with the prescribed dosages and duration as above in the presence of an independent trained radiology nurse to assist in the monitoring of the patient. EKG and oximetry remained stable throughout the procedure. The patient tolerated the procedure well and there were n o complications. The patient was sent to post anesthesia recovery in stable condition. CONCLUSION: 1. Uncomplicated nephrostomy tube placement as above. Electronically signed by: Ramone Dan MD 12/24/2017 12:51 PM EDT
--- NOTE | 2017-12-24 13:02 | P.PN ---
Subjective Interval history: F/u UTI. Patient has no new complaints. Improving flank pain. Nephrostomy draining bloody urine. Physical Exam Vital signs: Vital Signs 12/23/17 13:05 12/23/17 13:35 12/23/17 18:38 Temperature Pulse Rate 94 H 84 Respiratory Rate 16 20 Blood Pressure 179/102 H 162/82 H Pulse Oximetry 98 97 99 12/23/17 19:04 12/23/17 20:00 12/23/17 20:39 Temperature 98.9 F Pulse Rate 84 Respiratory Rate 18 Blood Pressure 151/73 H Pulse Oximetry 98 98 97 12/23/17 23:41 12/24/17 03:56 12/24/17 08:00 Temperature 98.3 F 98.5 F 98.7 F Pulse Rate 84 92 H 93 H Respiratory Rate 18 18 20 Blood Pressure 95/53 L 122/64 119/58 L Pulse Oximetry 96 97 99 Intake & Output 12/23/17 12/24/17 12/24/17 18:59 06:59 18:59 Intake Total 360 / 360 Output Total 395 / 395 Balance -35 / -35 Weight 63.503 kg 62.4 kg Intake: Oral 360 / 360 Output: Urine 125 / 125 Wound Drainage 270 / 270 Left Lower Chest 270 / 270 Other: Date of Last Bowel Movement 12/23/17 # Bowel Movements 0 Weight On Admission 63 kg Narrative: GENERAL: Well-developed and well-nourished in no distress. He is hard of hearing SKIN: Warm and dry. CARDIOVASCULAR: Regular rate and rhythm. RESPIRATORY: No accessory muscle use. Clear to auscultation. Breath sounds equal bilaterally. GASTROINTESTINAL: Abdomen soft, tender left upper quadrant. He has nephrostomy in place left flank draining bloody urine MUSCULOSKELETAL: Extremities without clubbing, cyanosis, or edema. No obvious deformities. NEUROLOGICAL: Awake and alert. No obvious cranial nerve deficits. Motor grossly within normal limits. Five out of 5 muscle strength in the arms and legs. Normal speech. Results - Labs CBC & Chem 7: 12/24/17 06:28 12/24/17 06:28 Laboratory Results - last 24 hr 12/23/17 12/23/17 12/23/17 13:15 13:15 13:37 WBC 14.5 H RBC 4.24 L Hgb 14.5 Hct 43.7 MCV 103.0 H MCH 34.3 H MCHC 33.3 RDW 15.8 Plt Count 193 MPV 8.0 Neut % (Auto) 88.2 H Lymph % (Auto) 4.0 L [place] % (Auto) 7.4 Eos % (Auto) 0.1 Baso % (Auto) 0.3 Neut # (Auto) 12.8 H Lymph # (Auto) 0.6 L [place] # (Auto) 1.1 H Eos # (Auto) 0.0 Baso # (Auto) 0.0 WBC Differential . Differential Comment Auto diff final PT INR APTT Sodium 138 Potassium 4.5 Chloride 102 Carbon Dioxide 26.1 Anion Gap 10 BUN 34 H Creatinine 1.78 H Estimated GFR 37 L Random Glucose 136 H Lactic Acid Calcium 9.6 Total Bilirubin 0.6 AST 23 ALT 20 Alkaline Phosphatase 95 Total Protein 8.2 Albumin 4.0 Lipase 143 Urine Color [place] Urine Clarity Cloudy H Urine pH 6.0 Ur Specific [place] 1.017 Urine Protein 100 H Urine Glucose (UA) Negative Urine Ketones Negative Urine Occult Blood Large H Urine Nitrate Negative Urine Bilirubin Negative Urine Urobilinogen Less than 2 Ur Leukocyte Esterase Moderate H Urine RBC Urine WBC 52 H Urine Bacteria Occasional H Micro UA Comment Culture indicated Urine Culture Comments Culture indicated 12/23/17 12/23/17 12/24/17 15:00 17:27 06:28 WBC 10.4 RBC 3.11 L Hgb 10.6 L D Hct 31.6 L MCV 101.6 H MCH 34.2 H MCHC 33.7 RDW 15.0 Plt Count 135 L D MPV 8.6 Neut % (Auto) 80.3 H Lymph % (Auto) 6.4 L [place] % (Auto) 12.6 H Eos % (Auto) 0.4 Baso % (Auto) 0.3 Neut # (Auto) 8.4 H Lymph # (Auto) 0.7 L [place] # (Auto) 1.3 H Eos # (Auto) 0.0 Baso # (Auto) 0.0 WBC Differential . Differential Comment Auto diff final PT 10.7 INR 1.1 APTT 28.7 Sodium Potassium Chloride Carbon Dioxide Anion Gap BUN Creatinine Estimated GFR Random Glucose Lactic Acid 1.8 Calcium Total Bilirubin AST ALT Alkaline Phosphatase Total Protein Albumin Lipase Urine Color Urine Clarity Urine pH Ur Specific [place] Urine Protein Urine Glucose (UA) Urine Ketones Urine Occult Blood Urine Nitrate Urine Bilirubin Urine Urobilinogen Ur Leukocyte Esterase Urine RBC Urine WBC Urine Bacteria Micro UA Comment Urine Culture Comments 12/24/17 06:28 WBC RBC Hgb Hct MCV MCH MCHC RDW Plt Count MPV Neut % (Auto) Lymph % (Auto) [place] % (Auto) Eos % (Auto) Baso % (Auto) Neut # (Auto) Lymph # (Auto) [place] # (Auto) Eos # (Auto) Baso # (Auto) WBC Differential Differential Comment PT INR APTT Sodium 137 Potassium 4.8 Chloride 102 Carbon Dioxide 25.6 Anion Gap 9 BUN 40 H Creatinine 2.21 H Estimated GFR 29 L Random Glucose 100 Lactic Acid Calcium 8.4 L D Total Bilirubin AST ALT Alkaline Phosphatase Total Protein Albumin Lipase Urine Color Urine Clarity Urine pH Ur Specific [place] Urine Protein Urine Glucose (UA) Urine Ketones Urine Occult Blood Urine Nitrate Urine Bilirubin Urine Urobilinogen Ur Leukocyte Esterase Urine RBC Urine WBC Urine Bacteria Micro UA Comment Urine Culture Comments Microbiology 12/23/17 17:27 Blood - Peripheral Aerobic Blood Culture - Preliminary No growth in 1 day 12/23/17 17:27 Blood - Peripheral Anaerobic Blood Culture - Preliminary No growth in 1 day 12/23/17 17:17 Blood - Peripheral Aerobic Blood Culture - Preliminary No growth in 1 day 12/23/17 17:17 Blood - Peripheral Anaerobic Blood Culture - Preliminary No growth in 1 day 12/23/17 13:37 Clean Catch Urine Urine Culture - Final 50-100,000 cfu/mL mixed pippa (probable contaminants ) - Imaging Impressions Abdomen/Pelvis CT 12/23/17 13:03 CONCLUSION: 1. Severe left hydronephrosis worse than on the prior study with hydroureter to the ureterovesical junction. The patient has history of prostate carcinoma and there is bladder wall thickening likely related to spread of neoplasm obstructing the ureterovesical junction. Nephrostomy 12/23/17 15:30 CONCLUSION: 1. Uncomplicated nephrostomy tube placement as above. - Procedures Left nephrostomy by IR Assessment and Plan - Assessment (1) Obstruction of urethra Code(s): N36.8 - Other specified disorders of urethra Status: Acute - Plan This is an 82-year-old male who presented to the emergency room because of left flank/abdominal pain. Started as intermittent positional moderate sharp pain becoming more intense over the course of the night denies fever, chills, nausea , vomiting, UTI symptoms constipation and diarrhea. In the emergency department he was found to have obstructive uropathy related to his prostate cancer status post XRT and ADT in 2013. 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 Underwent emergent nephrostomy as recommended by IR and . Obstructive uropathy secondary to prostate cancer. 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 Status post emergent nephrostomy. Pain management with tramadol, Lortab and IV morphine. recommended antegrade nephrostogram prior to discharge to evaluate for obstruction or recurrence of ureteral cancer. Outpatient follow-up with patient's urologist Sepsis secondary to UTI. Patient received IV Zosyn in the emergency department. Continue IV Rocephin and follow cultures Hypertension. Uncontrolled secondary to pain. Restart home medications. Monitor with as needed IV Vasotec and clonidine. Improved A. fib. Patient intolerant to anticoagulants including Coumadin and Xarelto. He is only on aspirin which obviously needs to be held at this time. Acute on chronic kidney disease stage III. Elevated creatinine secondary to infection. Will increase IV fluids to 80 cc an hour monitor for overload history of heart failure. Repeat BMP in 1 week. Avoid nephrotoxins DVT prophylaxis with SCD. Hold pharmacological prophylaxis secondary to bleed. Denies history of DVT. Discharge Planning: Home health care PT and VN
--- NOTE | 2017-12-24 13:39 | P.DCO ---
- Physical Therapy Order: Evaluate and treat, Improve ambulation, Strength and gait training - Home Health Nursing Order: Medical education, Medication education-adverse effect, Lobo catheter maintenance (nephrostomy) - Certification I have seen patient Raleigh Paris on 12/24/17. My clinical findings support the need for the requested home health care services because: Limited mobility due to disease progression I certify that my clinical findings support that this patient is homebound because: Need for psychosocial assistance
[2017-12-24] MEDS: Sodium Chloride 0.45 % Inj 1,000 ML IV.CONT SCH (13:55)
[2017-12-24] MEDS: Isosorbide Mononitrate 20 MG Tablet PO SCH (20:46)
[2017-12-25] MEDS: Sodium Chloride 0.45 % Inj 1,000 ML IV.CONT SCH ×2 (04:05→15:01)
[2017-12-25] MEDS: Magnesium Oxide 400 MG Tablet PO SCH (08:07)
[2017-12-25] MEDS: Polyethylene Glycol 3350 17 GM Packet PO SCH (08:07)
[2017-12-25] MEDS: Allopurinol 300 MG Tablet PO SCH (08:08)
[2017-12-25] MEDS: Senna/Docusate Sodium 8.6/50 MG Tablet PO SCH ×2 (08:08→23:33)
[2017-12-25] MEDS: Finasteride 5 MG Tablet PO SCH (08:08)
[2017-12-25 10:46] LABS: Baso % (Auto) 0.3 % (0.0-2.0); Eos # (Auto) 0.1 th/mm3 (0.0-0.4); Eos % (Auto) 1.3 % (0.0-4.0); Lymph # (Auto) 0.7 th/mm3 (1.0-4.8); Mean Corpuscular HGB Conc 33.2 % (32.0-36.0); Mean Corpuscular Volume 102.4 fL (80.0-100.0); Mean Platelet Volume 8.6 fL (7.0-11.0); Mono # (Auto) 1.1 th/mm3 (0.0-0.9); Mono % (Auto) 11.4 % (0.0-8.0); Neut # (Auto) 7.9 th/mm3 (1.8-7.7); Platelet Count 159 th/mm3 (150-450); Red Blood Count 3.23 mil/mm3 (4.50-5.90); Red Cell Distribution Width 15.4 % (11.6-17.2); White Blood Count 9.9 th/mm3 (4.0-11.0)
[2017-12-25 11:02] LABS: Calcium 8.4 mg/dL (8.5-10.1); Carbon Dioxide 24.6 meq/L (21.0-32.0); Magnesium 2.6 mg/dL (1.5-2.5); Potassium 4.2 meq/L (3.5-5.1)
--- NOTE | 2017-12-25 11:59 | P.PN ---
Subjective Interval history: Follow-up obstructive uropathy. He is doing okay out of bed to chair. Nephrostomy tube drained 170 ml in 24 hours. Since 7 am minimal output dw RN to contact if needed Physical Exam Vital signs: Vital Signs 12/24/17 12:00 12/24/17 16:00 12/24/17 19:45 Temperature 98.1 F 98.5 F 98.6 F Pulse Rate 87 100 H 99 H Respiratory Rate 20 20 18 Blood Pressure 129/58 L 133/79 138/74 Pulse Oximetry 87 L 93 L 97 12/24/17 23:49 12/25/17 08:00 Temperature 97.9 F 98.1 F Pulse Rate 92 H 83 Respiratory Rate 18 16 Blood Pressure 109/55 L 132/63 Pulse Oximetry 95 96 Intake & Output 12/24/17 12/25/17 12/25/17 18:59 06:59 18:59 Intake Total 1100 / 1100 995 / 995 Output Total 130 / 130 565 / 565 140 / 140 Balance 970 / 970 430 / 430 -140 / -140 Weight 62.4 kg Intake: IV 1100 / 1100 1/2 Normal Saline Inj 1,000 ML 1000 / 1000 @ 80 mls/hr IV.CONT .[id number] [facility] Rx#:[id number] Rocephin Inj 1,000 MG In NS Inj 100 / 100 100 ML @ 200 mls/hr IV.SIG Q24H [facility] Rx#:[id number] Oral 995 / 995 Output: Urine 425 / 425 Urine Amount (Stoma) 130 / 130 140 / 140 Nephrostomy Tube 130 / 130 140 / 140 Wound Drainage 140 / 140 Left Lower Chest 140 / 140 Other: # Voids 2 Date of Last Bowel Movement 12/23/17 12/23/17 # Bowel Movements 0 Narrative: GENERAL: Well-developed and well-nourished in no distress. He is hard of hearing SKIN: Warm and dry. CARDIOVASCULAR: Regular rate and rhythm. RESPIRATORY: No accessory muscle use. Clear to auscultation. Breath sounds equal bilaterally. GASTROINTESTINAL: Abdomen soft, tender left upper quadrant. He has nephrostomy in place left flank draining bloody urine MUSCULOSKELETAL: Extremities without clubbing, cyanosis, or edema. No obvious deformities. NEUROLOGICAL: Awake and alert. No obvious cranial nerve deficits. Motor grossly within normal limits. Five out of 5 muscle strength in the arms and legs. Results - Labs CBC & Chem 7: 12/25/17 08:47 12/25/17 08:47 Laboratory Results - last 24 hr 12/25/17 12/25/17 08:47 08:47 WBC 9.9 RBC 3.23 L Hgb 11.0 L Hct 33.0 L MCV 102.4 H MCH 34.0 MCHC 33.2 RDW 15.4 Plt Count 159 MPV 8.6 Neut % (Auto) 80.0 H Lymph % (Auto) 7.0 L [place] % (Auto) 11.4 H Eos % (Auto) 1.3 Baso % (Auto) 0.3 Neut # (Auto) 7.9 H Lymph # (Auto) 0.7 L [place] # (Auto) 1.1 H Eos # (Auto) 0.1 Baso # (Auto) 0.0 WBC Differential . Differential Comment Auto diff final Sodium 139 Potassium 4.2 Chloride 103 Carbon Dioxide 24.6 Anion Gap 11 BUN 47 H Creatinine 2.34 H Estimated GFR 27 L Random Glucose 105 Calcium 8.4 L Magnesium 2.6 H Microbiology 12/23/17 17:27 Blood - Peripheral Aerobic Blood Culture - Preliminary No growth in 2 days 12/23/17 17:27 Blood - Peripheral Anaerobic Blood Culture - Preliminary No growth in 2 days 12/23/17 17:17 Blood - Peripheral Aerobic Blood Culture - Preliminary No growth in 2 days 12/23/17 17:17 Blood - Peripheral Anaerobic Blood Culture - Preliminary No growth in 2 days 12/23/17 13:37 Clean Catch Urine Urine Culture - Final 50-100,000 cfu/mL mixed pippa (probable contaminants ) - Imaging Impressions Nephrostomy 12/23/17 15:30 CONCLUSION: 1. Uncomplicated nephrostomy tube placement as above. - Procedures Left nephrostomy by IR Assessment and Plan - Assessment (1) Obstructive uropathy Code(s): N13.9 - Obstructive and reflux uropathy, unspecified Status: Acute (2) Infection of kidney Code(s): N15.9 - Renal tubulo-interstitial disease, unspecified Status: Acute - Plan This is an 82-year-old male who presented to the emergency room because of left flank/abdominal pain. Started as intermittent positional moderate sharp pain becoming more intense over the course of the night denies fever, chills, nausea , vomiting, UTI symptoms constipation and diarrhea. In the emergency department he was found to have obstructive uropathy related to his prostate cancer status post XRT and ADT in 2012. 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 Underwent emergent nephrostomy as recommended by IR and . Obstructive uropathy secondary to prostate cancer. 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 Status post emergent nephrostomy. Pain management with tramadol, Lortab and IV morphine. recommended antegrade nephrostogram prior to discharge to evaluate for obstruction or recurrence of ureteral cancer. Outpatient follow-up with patient's urologist Sepsis secondary to UTI. Patient received IV Zosyn in the emergency department. Urine culture with contaminants will discontinue IV Rocephin Hypertension. Uncontrolled secondary to pain. Restart home medications. Monitor with as needed IV Vasotec and clonidine. Improved A. fib. Patient intolerant to anticoagulants including Coumadin and Xarelto. He is only on aspirin which obviously needs to be held at this time. Acute on chronic kidney disease stage III. Elevated creatinine secondary to infection and obstruction. Will ct IV fluids 80 cc an hour monitor for overload history of heart failure. Repeat BMP in the morning. Check CK. Avoid nephrotoxins DVT prophylaxis with SCD. Hold pharmacological prophylaxis secondary to bleed. Denies history of DVT. Discharge Planning: Home health care PT and VN when cleared for discharge by
--- NOTE | 2017-12-25 14:43 | P.PNURO ---
Subjective Patient symptoms today: Pt was seen for f/u this afternoon. Feels better post left PCN placement on Monday for severe left hydro. No f/c/n/v, no pain, just some soreness at the nephrostomy site. Left PCN is in place, dressing is dry and intact. It drains red bloody urine. Pt states that does not have hematuria when voids Objective Vital Signs: Vital Signs 12/24/17 16:00 12/24/17 19:45 12/24/17 23:49 Temperature 98.5 F 98.6 F 97.9 F Pulse Rate 100 H 99 H 92 H Respiratory Rate 20 18 18 Blood Pressure 133/79 138/74 109/55 L Pulse Oximetry 93 L 97 95 12/25/17 08:00 12/25/17 12:00 Temperature 98.1 F 97.9 F Pulse Rate 83 82 Respiratory Rate 16 16 Blood Pressure 132/63 132/64 Pulse Oximetry 96 93 L Intake & Output 12/24/17 12/25/17 12/25/17 18:59 06:59 18:59 Intake Total 1100 / 1100 995 / 995 Output Total 130 / 130 565 / 565 140 / 140 Balance 970 / 970 430 / 430 -140 / -140 Weight 62.4 kg Intake: IV 1100 / 1100 1/2 Normal Saline Inj 1,000 ML 1000 / 1000 @ 80 mls/hr IV.CONT .[id number] [facility] Rx#:[id number] Rocephin Inj 1,000 MG In NS Inj 100 / 100 100 ML @ 200 mls/hr IV.SIG Q24H [facility] Rx#:[id number] Oral 995 / 995 Output: Urine 425 / 425 Urine Amount (Stoma) 130 / 130 140 / 140 Nephrostomy Tube 130 / 130 140 / 140 Wound Drainage 140 / 140 Left Lower Chest 140 / 140 Other: # Voids 2 Date of Last Bowel Movement 12/23/17 12/23/17 # Bowel Movements 0 Result Diagrams: 12/25/17 08:47 12/25/17 08:47 Medications and IVs: Active Medications Generic Name Dose Route Start Last Admin Trade Name Freq PRN Reason Stop Dose Admin Acetaminophen 650 mg 12/23/17 16:26 Tylenol PO Q4H PRN Temp > 100.4 Acetaminophen 650 mg 12/23/17 16:29 Tylenol PO Q6HR PRN PAIN SCALE 1 TO 2 Hydrocodone Bitart/Acetaminophen 1 tab 12/23/17 16:29 Paicines 7.5/325 PO Q4H PRN PAIN SCALE 6 TO 10 Allopurinol 300 mg 12/24/17 09:00 12/25/17 08:08 Zyloprim PO 300 mg DAILY [facility] Administration Bisacodyl 10 mg 12/23/17 16:26 Dulcolax Supp RECTAL DAILY PRN SEVERE CONSITIPATION Bumetanide 0.5 mg 12/24/17 09:00 12/24/17 09:14 Bumex PO 0.5 mg DAILY [facility] Administration Clonidine HCl 0.1 mg 12/23/17 17:34 Catapres PO Q6H PRN SEE LABEL COMMENTS Enalaprilat 1.25 mg 12/23/17 17:34 Vasotec Inj IV.PUSH Q6H PRN SEE LABEL COMMENTS Finasteride 5 mg 12/24/17 09:00 12/25/17 08:08 Proscar PO 5 mg DAILY [facility] Administration Sodium Chloride 1,000 mls @ 80 mls/hr 12/23/17 16:30 12/25/17 04:05 1/2 Normal Saline Inj IV.CONT Not Given .[id number] [facility] Isosorbide Mononitrate 10 mg 12/23/17 21:00 12/24/17 20:46 Ismo PO 10 mg HS [facility] Administration Lactulose 30 ml 12/23/17 16:26 Lactulose Liq PO DAILY PRN SEVERE CONSITIPATION Lisinopril 2.5 mg 12/24/17 09:00 12/24/17 09:14 Prinivil PO 2.5 mg DAILY [facility] Administration Magnesium Oxide 400 mg 12/24/17 09:00 12/25/17 08:07 Mag-Ox PO 400 mg DAILY [facility] Administration Metoprolol Succinate 50 mg 12/24/17 09:00 12/25/17 08:09 Toprol Xl PO 50 mg DAILY [facility] Administration Morphine Sulfate 2 mg 12/23/17 16:29 Morphine Inj IV.PUSH Q6H PRN BREAKTHROUGH PAIN Naloxone HCl 0.4 mg 12/23/17 16:29 Narcan Inj IV.PUSH UNSCH PRN SEE LABEL COMMENTS Ondansetron HCl 4 mg 12/23/17 17:00 Zofran Odt PO Q6H PRN NAUSEA OR VOMITING Pantoprazole Sodium 40 mg 12/24/17 09:00 12/25/17 08:08 Protonix PO 40 mg DAILY [facility] Administration Polyethylene Glycol 17 gm 12/24/17 09:00 12/25/17 08:07 Miralax PO 17 gm DAILY [facility] Administration Pravastatin Sodium 20 mg 12/24/17 09:00 12/25/17 08:08 Pravachol PO 20 mg DAILY [facility] Administration Senna/Docusate Sodium 1 tab 12/23/17 21:00 12/25/17 08:08 Victoria-Colace PO 1 tab BID [facility] Administration Sennosides 17.2 mg 12/23/17 16:26 Senokot PO Q12H PRN Moderate Constipation Sodium Chloride 2 ml 12/23/17 13:03 12/23/17 13:25 Ns Flush IV.FLUSH 2 ml PRN PRN Administration FLUSH AFTER USING IV ACCESS Tramadol HCl 50 mg 12/23/17 16:29 Ultram PO Q4H PRN PAIN SCALE 3 TO 5 Objective Remarks: NAD RRR Clear lungs PCN on a left in in place Assessment and Plan - Plan - Continu current management as per primary team - No additional intervention needed - Consult IR to evaluate nephrostomy and possibly irrigate it - Pt to f/u after d/c with Dr Bell as an outpt Discussed Condition With: Dr Elham MCKAY attending
[2017-12-25 16:03] LABS: Digoxin 0.2 ng/mL (0.8-2.0)
[2017-12-25] MEDS: Isosorbide Mononitrate 20 MG Tablet PO SCH (22:47)
[2017-12-26] MEDS: Sodium Chloride 0.45 % Inj 1,000 ML IV.CONT SCH ×2 (03:40→08:38)
[2017-12-26 06:32] LABS: Calcium 8.6 mg/dL (8.5-10.1); Carbon Dioxide 22.2 meq/L (21.0-32.0); Magnesium 2.5 mg/dL (1.5-2.5); Potassium 4.7 meq/L (3.5-5.1)
[2017-12-26 08:18] VITALS: TEMP 98.1
[2017-12-26] MEDS: Senna/Docusate Sodium 8.6/50 MG Tablet PO SCH (08:33)
[2017-12-26] MEDS: Magnesium Oxide 400 MG Tablet PO SCH (08:33)
[2017-12-26] MEDS: Allopurinol 300 MG Tablet PO SCH (08:33)
[2017-12-26] MEDS: Finasteride 5 MG Tablet PO SCH (08:34)
[2017-12-26] MEDS: Polyethylene Glycol 3350 17 GM Packet PO SCH (08:34)
--- NOTE | 2017-12-26 10:54 | P.DS ---
Date of admission: 12/23/17 16:32 Primary care physician: UNKNOWN Anticipated date of discharge: 12/26/17 Brief History from admission: This is an 82-year-old male who presented to the emergency room because of left flank/abdominal pain. Started last night as intermittent positional moderate sharp pain becoming more intense over the course of the night denies fever, chills, nausea, vomiting, UTI symptoms constipation and diarrhea. In the emergency department he was found to have obstructive uropathy related to his prostate cancer status post XRT and ADT in 2012. 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 Underwent emergent nephrostomy as recommended by IR and . Patient seen in recovery room. States his pain is improved and pleuritic when he takes a deep breath. He is draining dark blood from his left nephrostomy. All other systems reviewed negative DS: Diagnosis - Discharge Diagnosis (1) Obstructive uropathy Status: Acute DS: Summary Hospital Course: Obstructive uropathy This is an 82-year-old male who presented to the emergency room because of left flank/abdominal pain. In the emergency department he was found to have obstructive uropathy related to his prostate cancer status post XRT and ADT in 2012. 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 IR and urology were consulted. The patient underwent emergent nephrostomy tube placement. He received IVFs. recommended antegrade nephrostogram prior to discharge to evaluate for obstruction or recurrence of ureteral cancer. The study was unable to be done secondary to clots. The pt will have outpatient follow-up with his urologist and will follow up with IR in the near future. UTI Patient received IV Zosyn in the emergency department. Urine culture with contaminants. We discontinued antibiotics. He was not septic. A. fib. Patient intolerant to anticoagulants including Coumadin and Xarelto. Aspirin was held secondary to bleeding. He will follow up with his PCP. Acute on chronic kidney disease stage III Elevated creatinine secondary to obstruction. He received IV fluids. He will follow up with urology and his PCP. - Time Spent with Patient Total time spent providing and/or coordinating discharge services: Greater than 30 minutes Exam Vital signs: Vital Signs 12/25/17 12:00 12/25/17 16:00 12/25/17 20:30 Temperature 97.9 F 98.1 F 99.4 F Pulse Rate 82 86 84 Respiratory Rate 16 Blood Pressure 132/64 138/63 142/80 H Pulse Oximetry 93 L 94 L 96 12/26/17 00:00 12/26/17 04:45 12/26/17 08:00 Temperature 98.4 F 97.7 F 98.1 F Pulse Rate 81 82 84 Respiratory Rate 19 Blood Pressure 116/60 112/54 L 157/70 H Pulse Oximetry 98 96 98 Intake & Output 12/25/17 12/26/17 12/26/17 18:59 06:59 18:59 Intake Total 480 / 480 1999 / 1999 1803 / 1803 Output Total 140 / 140 175 / 175 Balance 340 / 340 1825 / 1825 1803 / 1803 Weight 63 kg Intake: IV 1520 / 1520 1803 / 1803 1/2 Normal Saline Inj 1,000 ML 1320 / 1320 1803 / 1803 @ 80 mls/hr IV.CONT .[id number] [facility] Rx#:[id number] Oral 480 / 480 480 / 480 Output: Urine Amount (Stoma) 175 / 175 Nephrostomy Tube 175 / 175 Wound Drainage 140 / 140 Left Lower Chest 140 / 140 Other: # Voids 3 3 Date of Last Bowel Movement 12/25/17 12/25/17 # Bowel Movements 1 0 Narrative: GENERAL: Well-developed and well-nourished in no distress. He is hard of hearing SKIN: Warm and dry. CARDIOVASCULAR: Regular rate and rhythm. RESPIRATORY: No accessory muscle use. Clear to auscultation. Breath sounds equal bilaterally. GASTROINTESTINAL: Abdomen soft, tender left upper quadrant. He has nephrostomy in place left flank draining bloody urine MUSCULOSKELETAL: Extremities without clubbing, cyanosis, or edema. No obvious deformities. NEUROLOGICAL: Awake and alert. No obvious cranial nerve deficits. Motor grossly within normal limits. Five out of 5 muscle strength in the arms and legs. Results Procedures completed during hospitalization: Left nephrostomy by IR Labs on day of discharge: Labs from last 24 hours 12/26/17 12/25/17 12/25/17 05:25 08:47 08:47 WBC 9.9 RBC 3.23 L Hgb 11.0 L Hct 33.0 L MCV 102.4 H MCH 34.0 MCHC 33.2 RDW 15.4 Plt Count 159 MPV 8.6 Neut % (Auto) 80.0 H Lymph % (Auto) 7.0 L [place] % (Auto) 11.4 H Eos % (Auto) 1.3 Baso % (Auto) 0.3 Neut # (Auto) 7.9 H Lymph # (Auto) 0.7 L [place] # (Auto) 1.1 H Eos # (Auto) 0.1 Baso # (Auto) 0.0 WBC Differential . Differential Comment Auto diff final Sodium 140 139 Potassium 4.7 4.2 Chloride 108 H 103 Carbon Dioxide 22.2 24.6 Anion Gap 10 11 BUN 47 H 47 H Creatinine 1.92 H 2.34 H Estimated GFR 34 L 27 L Random Glucose 97 105 Calcium 8.6 8.4 L Magnesium 2.5 2.6 H Total Creatine Kinase 100 Digoxin 0.2 L Preliminary micro results at discharge 12/23/17 17:27 Aerobic Blood Culture - Preliminary Blood - Peripheral No growth in 2 days Anaerobic Blood Culture - Preliminary No growth in 2 days 12/23/17 17:17 Aerobic Blood Culture - Preliminary Blood - Peripheral No growth in 2 days Anaerobic Blood Culture - Preliminary No growth in 2 days - Impressions ITS Impressions Abdomen/Pelvis CT 12/23/17 13:03 CONCLUSION: 1. Severe left hydronephrosis worse than on the prior study with hydroureter to the ureterovesical junction. The patient has history of prostate carcinoma and there is bladder wall thickening likely related to spread of neoplasm obstructing the ureterovesical junction. Nephrostomy 12/23/17 15:30 CONCLUSION: 1. Uncomplicated nephrostomy tube placement as above. Discharge Plan - Discharge Disposition Patient Disposition: /Home Health Service - Discharge Condition Condition: Stable - Discharge Order Discharge Orders: Discharge Order (Routine); Ordered 12/26/17 Ordered By: Mauri Thao - Discharge Details Anticipated Discharge Date: 12/26/17 - Physicians Team Primary Care Provider: UNKNOWN, Attending Provider: Mauri Thao Other Providers: Roberto Lizarraga MD ; [employer]
[2017-12-26 15:24] VITALS: BP 128/60; PULSE 80; RESP 18; O2SAT 98
--- NOTE | 2017-12-26 16:08 | P.PNIM ---
Subjective Interval history: The patient wanted to go home. He denied any pain. He said he will follow-up with his urologist. Discussed with nursing. Physical Exam Vital signs: Vital Signs 12/25/17 20:30 12/26/17 00:00 12/26/17 04:45 Temperature 99.4 F 98.4 F 97.7 F Pulse Rate 84 81 82 Respiratory Rate 16 16 16 Blood Pressure 142/80 H 116/60 112/54 L Pulse Oximetry 96 98 96 12/26/17 08:00 12/26/17 12:25 12/26/17 15:20 Temperature 98.1 F 98.1 F 98.1 F Pulse Rate 84 82 80 Respiratory Rate 19 18 Blood Pressure 157/70 H 130/60 128/60 Pulse Oximetry 98 96 98 Intake & Output 12/25/17 12/26/17 12/26/17 18:59 06:59 18:59 Intake Total 480 / 480 2000 / 2000 1803 / 1803 Output Total 140 / 140 175 / 175 40 / 40 Balance 340 / 340 1825 / 1825 1763 / 1763 Weight 63 kg Intake: IV 1520 / 1520 1803 / 1803 1/2 Normal Saline Inj 1,000 ML 1320 / 1320 1803 / 1803 @ 80 mls/hr IV.CONT .[id number] JENNIFER Rx#:[id number] Oral 480 / 480 480 / 480 Output: Urine Amount (Stoma) 175 / 175 Nephrostomy Tube 175 / 175 Wound Drainage 140 / 140 40 / 40 Left Lower Chest 140 / 140 40 / 40 Other: # Voids 3 3 Date of Last Bowel Movement 12/25/17 12/25/17 # Bowel Movements 1 0 Narrative: GENERAL: Well-developed and well-nourished in no distress. He is hard of hearing SKIN: Warm and dry. CARDIOVASCULAR: Regular rate and rhythm. RESPIRATORY: No accessory muscle use. Clear to auscultation. Breath sounds equal bilaterally. GASTROINTESTINAL: Abdomen soft, tender left upper quadrant. He has nephrostomy in place left flank draining bloody urine MUSCULOSKELETAL: Extremities without clubbing, cyanosis, or edema. No obvious deformities. NEUROLOGICAL: Awake and alert. No obvious cranial nerve deficits. Motor grossly within normal limits. Five out of 5 muscle strength in the arms and legs. Results - Labs CBC & Chem 7: 12/25/17 08:47 12/26/17 05:25 Laboratory Results - last 24 hr 12/25/17 12/26/17 08:47 05:25 Sodium 140 Potassium 4.7 Chloride 108 H Carbon Dioxide 22.2 Anion Gap 10 BUN 47 H Creatinine 1.92 H Estimated GFR 34 L Random Glucose 97 Calcium 8.6 Magnesium 2.5 Total Creatine Kinase 100 Digoxin 0.2 L Microbiology 12/23/17 17:27 Blood - Peripheral Aerobic Blood Culture - Preliminary No growth in 3 days 12/23/17 17:27 Blood - Peripheral Anaerobic Blood Culture - Preliminary No growth in 3 days 12/23/17 17:17 Blood - Peripheral Aerobic Blood Culture - Preliminary No growth in 3 days 12/23/17 17:17 Blood - Peripheral Anaerobic Blood Culture - Preliminary No growth in 3 days - Procedures Left nephrostomy by IR Assessment and Plan - Assessment (1) Obstructive uropathy Code(s): N13.9 - Obstructive and reflux uropathy, unspecified Status: Acute - Plan This is an 82-year-old male who presented to the emergency room because of left flank/abdominal pain. Started as intermittent positional moderate sharp pain becoming more intense over the course of the night denies fever, chills, nausea , vomiting, UTI symptoms constipation and diarrhea. In the emergency department he was found to have obstructive uropathy related to his prostate cancer status post XRT and ADT in 2012. 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 Underwent emergent nephrostomy as recommended by IR and . Obstructive uropathy secondary to prostate cancer. 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 Status post emergent nephrostomy. Pain management with tramadol, Lortab and IV morphine. recommended antegrade nephrostogram prior to discharge to evaluate for obstruction or recurrence of ureteral cancer. Outpatient follow-up with patient's urologist - antegrade nephrostomy pending prior to discharge. Sepsis secondary to UTI. Patient received IV Zosyn in the emergency department. Urine culture with contaminants will discontinue IV Rocephin Hypertension. Uncontrolled secondary to pain. Restart home medications. Monitor with as needed IV Vasotec and clonidine. Improved A. fib. Patient intolerant to anticoagulants including Coumadin and Xarelto. He is only on aspirin which needs to be held at this time. Acute on chronic kidney disease stage III. Elevated creatinine secondary to infection and obstruction. Will ct IV fluids 80 cc an hour monitor for overload history of heart failure. Repeat BMP in the morning. Check CK. Avoid nephrotoxins DVT prophylaxis with SCD. Hold pharmacological prophylaxis secondary to bleed. Denies history of DVT.
--- NOTE | 2017-12-26 16:45 | P.RAD ---
Post Procedure Progress Note - Pre Procedure Diagnosis (1) Obstructive uropathy - Post Procedure Diagnosis (1) Obstructive uropathy - Procedure Information Procedure Date: 12/26/17 Supervising Radiologist: Waldemar Castillo MD Estimated blood loss (mL): 0 - Plan of Activity Patient to Unit: Nursing Unit Patient Condition: Fair Additional Comments: antegrade nephrostogram attempted. The collecting system is filled with clot at this point. We will need to bring the patient back at a later date for definitive evaluation. See PACS Report for procedural detail/treatment.
[2017-12-26] MEDS ORDERED: Iohexol 350 MG/ML 50 ML Vial (for Rad Diag) IVCONTRAST ONE (16:59)
--- NOTE | 2018-01-03 16:58 | IR ---
EXAM DATE: 12/26/2017 5:08 PM EDT AGE/SEX: 82 years / Male INDICATIONS: Patient with history of kidney disease in need of nephrostomy tube evaluation. CLINICAL DATA: This is the patient's initial encounter. Patient reports that signs and symptoms have been present for 3 days and indicates a pain score of 0/10. MEDICAL/SURGICAL HISTORY: DVT.Kidney damage.Umbilical hernia.Acid reflux.Gout.Hypercholesteremia.Pros saavedra cancer.HTN.A-FIB. Pacemaker.Bypass surgery. COMPARISON: . FLUORO TIME (min): 0.6 IMAGE SERIES: 2 CONTRAST (cc): 10 Omnipaque (iohexol) 350 DEVICE(S): . . PROCEDURE: 1. Antegrade pyelogram. The risks, benefits and alternatives to the procedure were explained and verbal and written consent w as obtained. Under sterile conditions and using aseptic technique with fluoroscopic guidance the pat ient's existing nephroureteral tube was accessed. The patient's existing catheter was accessed using sterile technique. The catheter had pulled back in to a calyx. Injection of contrast through the catheter demonstrated a very dilated collecting system which was completely filled with thrombus. There was some pleural contrast into the proximal ureter. 1. Uncomplicated injection of indwelling nephrostomy tube. 2. The collecting system is severely dilated and appears to represent a hydronephrotic sac. The hallie ecting system is filled with thrombus. Electronically signed by: Waldemar Castillo MD 01/03/2018 4:56 PM EDT
== END 2017-12-26 20:16 | disposition home health service (06) ==
LOC: NEPC 12:46 → N06 12:46 → INTOOBSV 16:26 → NEDA 16:32 → N06 20:13
PROVIDERS: ADMIT Hospitalist; ATTEND Hospitalist

== ENCOUNTER 2018-04-08 20:33 | Inpatient (IN) ==
--- NOTE | 2018-04-08 21:37 | ED ---
HPI General Chief complaint: Urogenital-Male Stated complaint: blood and bloos clots in urine Time Seen by Provider: 04/08/18 21:00 Source: patient and family Mode of arrival: ambulatory Limitations: no limitations History of Present Illness HPI Narrative: Patient is an 83-year-old male presenting to the emergency department for evaluation of urinary retention. Patient states he has been unable to urinate since this afternoon. He states he has been passing blood clots. He also reports urinary incontinence, this is not new. Patient has a left nephrostomy tube, it was changed out in the middle of February. Patient is currently on aspirin 81 mg daily. He reports that he has pain, worse when he sits up or moves, currently it is a 4 out of 10. Pain is constant. Patient feels as if he has to urinate but cannot. Patient reports a history of the same. It happened 3 weeks ago and he was at Dr. Engle's office where they inserted a three-way catheter and irrigated. MD Complaint: Reports dysuria Onset (ago): hour(s) Duration: constant Severity: moderate Severity scale (1-10): 4 Quality: Reports aching Relieving factors: urination Reports blood in urine Related Data Home Medications Medication Instructions Recorded Confirmed allopurinol 150 mg PO DAILY 12/23/17 04/08/18 coenzyme Q10 [Co Q-10] 100 mg PO DAILY 12/23/17 04/08/18 finasteride 5 mg PO DAILY 12/23/17 04/08/18 isosorbide mononitrate 10 mg PO HS 12/23/17 04/08/18 magnesium 500 mg PO DAILY 12/23/17 04/08/18 metoprolol succinate 50 mg PO DAILY 12/23/17 04/08/18 updtwmzh-zzb-CF-lycopen-lutein 1 tab PO DAILY 12/23/17 04/08/18 [Centrum Silver] polyethylene glycol 3350 [Miralax] 17 g PO DAILY PRN 12/23/17 04/08/18 vit C-vit Q-eomhft-qnuw-lutein 1 tab PO DAILY 12/23/17 04/08/18 [PreserVision Lutein] Previous Rx's Medication Instructions Recorded tamsulosin 0.4 mg PO DAILY #30 cap 04/13/18 Allergies Allergy/AdvReac Type Severity Reaction Status Date / Time No Known Allergies Allergy Verified 04/08/18 20:52 Review of Systems ROS: all other systems reviewed are negative [facility] Medical History Medical History Acid reflux (Acute) Afib (Acute) Cardiac pacemaker (Acute) DVT (deep venous thrombosis) (Acute) Gout (Acute) Hard of hearing (Acute) Hypercholesteremia (Acute) Hypertension (Acute) Kidney damage (Acute) Prostate cancer (Acute) Umbilical hernia (Acute) Surgical History Surgical History Hx of nephrostomy (Acute) H/O heart bypass surgery (Acute) Family History Family History Father Cancer Mother Heart problem Other Family history non-contributory Social History Social History Substance History: No History of Abuse Second Hand Smoke Exposure: No Smoking Status: Former smoker Tobacco Type: Cigarettes How Often Do You Have a Drink Containing Alcohol: Never Recent Travel in [facility] [place] within the Last 8 Weeks: No Recent Out of Country Travel within the Last 8 Weeks: No Immunization History Tetanus Immunization: Unsure Exam Narrative Exam Narrative: GENERAL: Well-developed, well-nourished, alert male. Presenting in no acute distress. He does appear uncomfortable. SKIN: Focused skin assessment warm/dry. HEAD: Atraumatic. Normocephalic. EYES: Pupils equal and round. No scleral icterus. No injection or drainage. ENT: No nasal bleeding or discharge. Mucous membranes pink and moist. NECK: Trachea midline. No JVD. CARDIOVASCULAR: Regular rate and rhythm. No murmur appreciated. RESPIRATORY: No accessory muscle use. Clear to auscultation. Breath sounds equal bilaterally. GASTROINTESTINAL: Abdomen soft, tender to palpation in suprapubic region, nondistended. Hepatic and splenic margins not palpable. MUSCULOSKELETAL: No obvious deformities. No clubbing. No cyanosis. No edema. NEUROLOGICAL: Awake and alert. No obvious cranial nerve deficits. Motor grossly within normal limits. Normal speech. PSYCHIATRIC: Appropriate mood and affect; insight and judgment normal. Course Initial Documented Vital Signs Temperature 97.1 F L 04/08/18 20:51 Pulse Rate 94 H 04/08/18 20:51 Respiratory Rate 18 04/08/18 20:51 Blood Pressure 171/79 H 04/08/18 20:51 Pulse Oximetry 97 04/08/18 20:51 Last Documented Vital Signs Temperature 97.5 F L 04/14/18 12:00 Pulse Rate 92 H 04/14/18 12:00 Respiratory Rate 18 04/14/18 12:00 Blood Pressure 158/79 H 04/14/18 12:00 Pulse Oximetry 96 04/14/18 12:00 Sign Out Sign Out Data: Patient Sign Out occurred on 04/08/18 at 23:14. Patient's care was discussed, and care was transferred from Kaleigh Gordillo to Candida Conteh MD. Sign Out Comment: Waiting on CT of the abd/pelvis. UA consistent w/ UTI. Pt was given 1g Rocephin IV. Bladder irrigation until clear. Last updated by Kaleigh Gordillo ARNP at 04/08/18 22:49 Post-Handoff Eval: The patient's case was checked out to me at the conclusion of Kaleigh, the nurse practitioner shift. Please see her complete history and physical. The patient was pending CT scan of the abdomen and pelvis. The patient had presented with urinary retention associated with hematuria. A three-way Lobo catheter was placed on the patient's bladder was irrigated. The patient had recurrences of pain requiring briefly discontinuing the irrigation, and then reinstitution. The patient CT scan of the abdomen and pelvis showed a bladder mass versus large blood clot in the bladder with urinary retention noted. Nephrostomy tube appeared to be in good position. Some degree of pulmonary edema was suspected, fatty infiltration of the liver was noted. The patient will be admitted for continued bladder irrigation and consultation with the urologist. The patient's case including history, pertinent physical examination findings, and laboratory studies were discussed with Dr. Hair. It was agreed that the patient would be admitted to the hospitalist service. The patient's results were discussed with the patient, including the plan of care. I explained that further testing and/ or monitoring is indicated based on the patient's history, examination, and/ or laboratory findings. Therefore, I recommended admission for additional evaluation. The patient expressed understanding and was agreeable with this plan. The patient was admitted to the hospital in guarded condition and sent to a bed under the care of the [facility] service. Discharge Plan Discharge Disposition Patient Disposition: Discharge Home Discharge Condition Condition: Good Discharge Order Discharge Orders: Discharge Order (Routine); Ordered 04/14/18 Ordered By: Quincy Pires Discharge Details Anticipated Discharge Date: 04/13/18 Discharge Comment: Patient can be discharged if he voids per Urology. Discussed with daughter at bedside. Diagnosis: Gross hematuria, Acute urinary retention Physicians Team ED Provider: Candida Conteh Primary Care Provider: Juve An Attending Provider: Quincy Pires Other Providers: Johan Marrreo ; Juve An Discharge Interventions Interventions: ED Discharge Assessment Last Done: 04/09/18 01:31 Status ED Status: Left Department Discharge Information Discharge Date/Time: 04/09/18 02:16 Medical Decision Making MDM Narrative Medical decision making narrative: Patient is an 83-year-old male presenting with urinary retention and hematuria. Will attempt to place a three-way catheter to irrigate. Labs and urinalysis ordered and pending. Urinalysis is consistent with a urinary tract infection. Renal function is stable when compared to prior. CBC unremarkable. Medical records reviewed, patient had bladder wall thickening on a previous CT scan of the abdomen and pelvis in December. CT scan of the abdomen and pelvis ordered and pending at this time. Medical Screen Exam Complete: Yes Emergency Medical Condition: Yes Differential Diagnosis Differential Diagnosis: UTI versus obstruction versus retention versus other Medical Records Medical records reviewed: Yes I reviewed the patient's medical records. Lab Data Result diagrams: 04/14/18 06:35 04/13/18 05:39 Lab Results 04/08/18 04/08/18 04/08/18 Range/Units 21:32 21:32 21:32 WBC 8.2 (4.0-11.0) th/mm3 RBC 3.75 L (4.50-5.90) mil/mm3 Hgb 13.1 (13.0-17.0) gm/dL Hct 38.4 L (39.0-51.0) % MCV 102.3 H (80.0-100.0) fL MCH 35.0 H (27.0-34.0) pg MCHC 34.2 (32.0-36.0) % RDW 16.7 (11.6-17.2) % Plt Count 136 L (150-450) th/mm3 MPV 7.8 (7.0-11.0) fL Prelim Diff (Auto) Neut % (Auto) 79.9 H (16.0-70.0) % Lymph % (Auto) 6.3 L (9.0-44.0) % Placer % (Auto) 11.4 H (0.0-8.0) % Eos % (Auto) 1.8 (0.0-4.0) % Baso % (Auto) 0.6 (0.0-2.0) % Neut # (Auto) 6.5 (1.8-7.7) th/mm3 Lymph # (Auto) 0.5 L (1.0-4.8) th/mm3 Placer # (Auto) 0.9 (0.0-0.9) th/mm3 Eos # (Auto) 0.1 (0.0-0.4) th/mm3 Baso # (Auto) 0.1 (0.0-0.2) th/mm3 WBC Differential . Diff Scan Differential Comment Auto diff final Platelet Estimate (Normal) Platelet Morphology (Normal) PT 11.3 (9.8-11.6) sec INR 1.1 Ratio APTT 27.7 (24.3-30.1) sec Sodium 144 (136-145) meq/L Potassium 4.5 (3.5-5.1) meq/L Chloride 110 H (98-107) meq/L Carbon Dioxide 26.5 (21.0-32.0) meq/L Anion Gap 8 (5-15) meq/L BUN 43 H (7-18) mg/dL Creatinine 1.68 H (0.60-1.30) mg/dL Estimated GFR 39 L (>89) mL/min Random Glucose 124 H (74-106) mg/dL Calcium 8.6 (8.5-10.1) mg/dL Magnesium (1.5-2.5) mg/dL Total Bilirubin (0.2-1.0) mg/dL AST (15-37) U/L ALT (12-78) U/L Alkaline Phosphatase (45-117) U/L Total Protein (6.4-8.2) g/dL Albumin (3.4-5.0) g/dL Urine Color (Yellw/Straw) Urine Clarity (Clear) Urine pH (5.0-8.5) Ur Specific [place] (1.002-1.035) Urine Protein (Neg-Trace) mg/dL Urine Glucose (UA) (Negative) mg/dL Urine Ketones (Negative) mg/dL Urine Occult Blood (Negative) Urine Nitrate (Negative) Urine Bilirubin (Negative) Urine Urobilinogen (Less than 2) mg/dL Ur Leukocyte Esterase (Negative) Urine RBC (0-3) /hpf Urine WBC (0-5) /hpf Urine Bacteria (None) /hpf Urine Mucus (Occasional) /lpf Micro UA Comment Ur Microscopic Review Urine Culture Comments 04/08/18 04/09/18 04/09/18 Range/Units 22:05 16:14 22:15 WBC (4.0-11.0) th/mm3 RBC (4.50-5.90) mil/mm3 Hgb 12.3 L 11.5 L (13.0-17.0) gm/dL Hct 38.2 L 35.6 L (39.0-51.0) % MCV (80.0-100.0) fL MCH (27.0-34.0) pg MCHC (32.0-36.0) % RDW (11.6-17.2) % Plt Count (150-450) th/mm3 MPV (7.0-11.0) fL Prelim Diff (Auto) Neut % (Auto) (16.0-70.0) % Lymph % (Auto) (9.0-44.0) % Placer % (Auto) (0.0-8.0) % Eos % (Auto) (0.0-4.0) % Baso % (Auto) (0.0-2.0) % Neut # (Auto) (1.8-7.7) th/mm3 Lymph # (Auto) (1.0-4.8) th/mm3 Placer # (Auto) (0.0-0.9) th/mm3 Eos # (Auto) (0.0-0.4) th/mm3 Baso # (Auto) (0.0-0.2) th/mm3 WBC Differential Diff Scan Differential Comment Platelet Estimate (Normal) Platelet Morphology (Normal) PT (9.8-11.6) sec INR Ratio APTT (24.3-30.1) sec Sodium (136-145) meq/L Potassium (3.5-5.1) meq/L Chloride (98-107) meq/L Carbon Dioxide (21.0-32.0) meq/L Anion Gap (5-15) meq/L BUN (7-18) mg/dL Creatinine (0.60-1.30) mg/dL Estimated GFR (>89) mL/min Random Glucose (74-106) mg/dL Calcium (8.5-10.1) mg/dL Magnesium (1.5-2.5) mg/dL Total Bilirubin (0.2-1.0) mg/dL AST (15-37) U/L ALT (12-78) U/L Alkaline Phosphatase (45-117) U/L Total Protein (6.4-8.2) g/dL Albumin (3.4-5.0) g/dL Urine Color Red (Yellw/Straw) Urine Clarity Hazy H (Clear) Urine pH 6.0 (5.0-8.5) Ur Specific [place] 1.003 (1.002-1.035) Urine Protein 100 H (Neg-Trace) mg/dL Urine Glucose (UA) 50 (Negative) mg/dL Urine Ketones Negative (Negative) mg/dL Urine Occult Blood Moderate H (Negative) Urine Nitrate Negative (Negative) Urine Bilirubin Negative (Negative) Urine Urobilinogen Less than 2 (Less than 2) mg/dL Ur Leukocyte Esterase Small H (Negative) Urine RBC 34 H (0-3) /hpf Urine WBC 30 H (0-5) /hpf Urine Bacteria Many H (None) /hpf Urine Mucus Few H (Occasional) /lpf Micro UA Comment Cath-culture ind Ur Microscopic Review Not Reportable Urine Culture Comments Cath-cult indicated 04/10/18 04/10/18 04/11/18 Range/Units 08:19 08:19 13:00 WBC 9.2 6.3 (4.0-11.0) th/mm3 RBC 3.20 L 2.94 L (4.50-5.90) mil/mm3 Hgb 11.2 L 10.5 L (13.0-17.0) gm/dL Hct 33.8 L 32.4 L (39.0-51.0) % MCV 105.8 H D 110.0 H D (80.0-100.0) fL MCH 35.1 H 35.6 H (27.0-34.0) pg MCHC 33.2 32.4 (32.0-36.0) % RDW 16.6 17.7 H (11.6-17.2) % Plt Count 110 L 85 L (150-450) th/mm3 MPV 7.9 7.9 (7.0-11.0) fL Prelim Diff (Auto) Slide review pending Neut % (Auto) 84.7 H 81.9 H (16.0-70.0) % Lymph % (Auto) 4.3 L 6.0 L (9.0-44.0) % Placer % (Auto) 10.6 H 10.0 H (0.0-8.0) % Eos % (Auto) 0.1 1.9 (0.0-4.0) % Baso % (Auto) 0.3 0.2 (0.0-2.0) % Neut # (Auto) 7.8 H 5.1 (1.8-7.7) th/mm3 Lymph # (Auto) 0.4 L 0.4 L (1.0-4.8) th/mm3 Placer # (Auto) 1.0 H 0.6 (0.0-0.9) th/mm3 Eos # (Auto) 0.0 0.1 (0.0-0.4) th/mm3 Baso # (Auto) 0.0 0.0 (0.0-0.2) th/mm3 WBC Differential . . Diff Scan Auto diff confirmed Differential Comment Auto diff final . Platelet Estimate Low L (Normal) Platelet Morphology Normal (Normal) PT (9.8-11.6) sec INR Ratio APTT (24.3-30.1) sec Sodium 142 (136-145) meq/L Potassium 4.8 (3.5-5.1) meq/L Chloride 111 H (98-107) meq/L Carbon Dioxide 21.3 (21.0-32.0) meq/L Anion Gap 10 (5-15) meq/L BUN 40 H (7-18) mg/dL Creatinine 2.57 H (0.60-1.30) mg/dL Estimated GFR 24 L (>89) mL/min Random Glucose 93 (74-106) mg/dL Calcium 8.1 L (8.5-10.1) mg/dL Magnesium (1.5-2.5) mg/dL Total Bilirubin 0.4 (0.2-1.0) mg/dL AST 13 L (15-37) U/L ALT 13 (12-78) U/L Alkaline Phosphatase 74 (45-117) U/L Total Protein 6.3 L (6.4-8.2) g/dL Albumin 2.9 L (3.4-5.0) g/dL Urine Color (Yellw/Straw) Urine Clarity (Clear) Urine pH (5.0-8.5) Ur Specific [place] (1.002-1.035) Urine Protein (Neg-Trace) mg/dL Urine Glucose (UA) (Negative) mg/dL Urine Ketones (Negative) mg/dL Urine Occult Blood (Negative) Urine Nitrate (Negative) Urine Bilirubin (Negative) Urine Urobilinogen (Less than 2) mg/dL Ur Leukocyte Esterase (Negative) Urine RBC (0-3) /hpf Urine WBC (0-5) /hpf Urine Bacteria (None) /hpf Urine Mucus (Occasional) /lpf Micro UA Comment Ur Microscopic Review Urine Culture Comments 04/11/18 04/12/18 04/12/18 Range/Units 13:00 08:04 08:04 WBC 5.5 (4.0-11.0) th/mm3 RBC 2.83 L (4.50-5.90) mil/mm3 Hgb 9.7 L (13.0-17.0) gm/dL Hct 30.2 L (39.0-51.0) % MCV 106.6 H (80.0-100.0) fL MCH 34.4 H (27.0-34.0) pg MCHC 32.3 (32.0-36.0) % RDW 17.1 (11.6-17.2) % Plt Count 93 L (150-450) th/mm3 MPV 8.1 (7.0-11.0) fL Prelim Diff (Auto) Slide review pending Neut % (Auto) 77.6 H (16.0-70.0) % Lymph % (Auto) 7.3 L (9.0-44.0) % Placer % (Auto) 11.7 H (0.0-8.0) % Eos % (Auto) 3.0 (0.0-4.0) % Baso % (Auto) 0.4 (0.0-2.0) % Neut # (Auto) 4.3 (1.8-7.7) th/mm3 Lymph # (Auto) 0.4 L (1.0-4.8) th/mm3 Placer # (Auto) 0.6 (0.0-0.9) th/mm3 Eos # (Auto) 0.2 (0.0-0.4) th/mm3 Baso # (Auto) 0.0 (0.0-0.2) th/mm3 WBC Differential . Diff Scan Auto diff confirmed Differential Comment . Platelet Estimate Low L (Normal) Platelet Morphology Normal (Normal) PT (9.8-11.6) sec INR Ratio APTT (24.3-30.1) sec Sodium 139 141 (136-145) meq/L Potassium 4.4 4.4 (3.5-5.1) meq/L Chloride 106 109 H (98-107) meq/L Carbon Dioxide 23.8 23.5 (21.0-32.0) meq/L Anion Gap 9 9 (5-15) meq/L BUN 36 H 25 H (7-18) mg/dL Creatinine 1.65 H 1.39 H (0.60-1.30) mg/dL Estimated GFR 40 L 49 L (>89) mL/min Random Glucose 104 91 (74-106) mg/dL Calcium 8.2 L 8.0 L (8.5-10.1) mg/dL Magnesium 2.8 H (1.5-2.5) mg/dL Total Bilirubin 0.4 (0.2-1.0) mg/dL AST 27 (15-37) U/L ALT 20 (12-78) U/L Alkaline Phosphatase 87 (45-117) U/L Total Protein 6.5 (6.4-8.2) g/dL Albumin 2.9 L (3.4-5.0) g/dL Urine Color (Yellw/Straw) Urine Clarity (Clear) Urine pH (5.0-8.5) Ur Specific [place] (1.002-1.035) Urine Protein (Neg-Trace) mg/dL Urine Glucose (UA) (Negative) mg/dL Urine Ketones (Negative) mg/dL Urine Occult Blood (Negative) Urine Nitrate (Negative) Urine Bilirubin (Negative) Urine Urobilinogen (Less than 2) mg/dL Ur Leukocyte Esterase (Negative) Urine RBC (0-3) /hpf Urine WBC (0-5) /hpf Urine Bacteria (None) /hpf Urine Mucus (Occasional) /lpf Micro UA Comment Ur Microscopic Review Urine Culture Comments 04/13/18 04/13/18 04/14/18 Range/Units 05:39 05:39 06:35 WBC 4.9 (4.0-11.0) th/mm3 RBC 2.44 L (4.50-5.90) mil/mm3 Hgb 8.6 L 9.7 L (13.0-17.0) gm/dL Hct 25.8 L 29.0 L (39.0-51.0) % MCV 105.8 H (80.0-100.0) fL MCH 35.1 H (27.0-34.0) pg MCHC 33.1 (32.0-36.0) % RDW 16.4 (11.6-17.2) % Plt Count 102 L (150-450) th/mm3 MPV 8.1 (7.0-11.0) fL Prelim Diff (Auto) Neut % (Auto) (16.0-70.0) % Lymph % (Auto) (9.0-44.0) % Placer % (Auto) (0.0-8.0) % Eos % (Auto) (0.0-4.0) % Baso % (Auto) (0.0-2.0) % Neut # (Auto) (1.8-7.7) th/mm3 Lymph # (Auto) (1.0-4.8) th/mm3 Placer # (Auto) (0.0-0.9) th/mm3 Eos # (Auto) (0.0-0.4) th/mm3 Baso # (Auto) (0.0-0.2) th/mm3 WBC Differential Diff Scan Differential Comment Platelet Estimate (Normal) Platelet Morphology (Normal) PT (9.8-11.6) sec INR Ratio APTT (24.3-30.1) sec Sodium 142 (136-145) meq/L Potassium 4.1 (3.5-5.1) meq/L Chloride 111 H (98-107) meq/L Carbon Dioxide 22.5 (21.0-32.0) meq/L Anion Gap 9 (5-15) meq/L BUN 23 H (7-18) mg/dL Creatinine 1.20 (0.60-1.30) mg/dL Estimated GFR 58 L (>89) mL/min Random Glucose 90 (74-106) mg/dL Calcium 7.7 L (8.5-10.1) mg/dL Magnesium (1.5-2.5) mg/dL Total Bilirubin (0.2-1.0) mg/dL AST (15-37) U/L ALT (12-78) U/L Alkaline Phosphatase (45-117) U/L Total Protein (6.4-8.2) g/dL Albumin (3.4-5.0) g/dL Urine Color (Yellw/Straw) Urine Clarity (Clear) Urine pH (5.0-8.5) Ur Specific [place] (1.002-1.035) Urine Protein (Neg-Trace) mg/dL Urine Glucose (UA) (Negative) mg/dL Urine Ketones (Negative) mg/dL Urine Occult Blood (Negative) Urine Nitrate (Negative) Urine Bilirubin (Negative) Urine Urobilinogen (Less than 2) mg/dL Ur Leukocyte Esterase (Negative) Urine RBC (0-3) /hpf Urine WBC (0-5) /hpf Urine Bacteria (None) /hpf Urine Mucus (Occasional) /lpf Micro UA Comment Ur Microscopic Review Urine Culture Comments Imaging Data Radiologist's impression: Abdomen/Pelvis CT 04/08/18 22:04 CONCLUSION: 1. Mass versus large clot in the urinary bladder and appears to be obstructing the Lobo catheter. Urinary bladder is moderately distended at the time of imaging. There is either mass or clot of the distal ureter as well. 2. External nephrostomy tube present on the left and appears to be appropriately positioned. No hydronephrosis but the collecting system appears indurated. Upper urinary tract infection should be included in the differential. 3. Slight degree of pulmonary edema suspected. 4. Liver is fatty infiltrated.
[2018-04-08 21:52] LABS: Baso # (Auto) 0.1 th/mm3 (0.0-0.2); Baso % (Auto) 0.6 % (0.0-2.0); Eos # (Auto) 0.1 th/mm3 (0.0-0.4); Eos % (Auto) 1.8 % (0.0-4.0); Hematocrit 38.4 % (39.0-51.0); Hemoglobin 13.1 gm/dL (13.0-17.0); Lymph # (Auto) 0.5 th/mm3 (1.0-4.8); Lymph % (Auto) 6.3 % (9.0-44.0); Mean Corpuscular HGB Conc 34.2 % (32.0-36.0); Mean Corpuscular Volume 102.3 fL (80.0-100.0); Mean Platelet Volume 7.8 fL (7.0-11.0); Mono # (Auto) 0.9 th/mm3 (0.0-0.9); Mono % (Auto) 11.4 % (0.0-8.0); Neut # (Auto) 6.5 th/mm3 (1.8-7.7); Neut % (Auto) 79.9 % (16.0-70.0); Platelet Count 136 th/mm3 (150-450); Red Blood Count 3.75 mil/mm3 (4.50-5.90); Red Cell Distribution Width 16.7 % (11.6-17.2); White Blood Count 8.2 th/mm3 (4.0-11.0)
[2018-04-08 22:03] LABS: Activated Partial Thrombo Time 27.7 sec (24.3-30.1); INR 1.1 Ratio; Prothrombin Time 11.3 sec (9.8-11.6)
[2018-04-08 22:07] LABS: Calcium 8.6 mg/dL (8.5-10.1); Carbon Dioxide 26.5 meq/L (21.0-32.0); Potassium 4.5 meq/L (3.5-5.1)
[2018-04-08 22:44] LABS: Bacteria,Urine Many /hpf; Bilirubin,Urine Negative (Negative); Clarity,Urine Hazy (Clear); Color,Urine Red (Yellw/Straw); Glucose,Urine (UA) 50 mg/dL (Negative); Leukocyte Esterase,Urine Small (Negative); Mucus,Urine Few /lpf (Occasional); Nitrite,Urine Negative (Negative); Specific Gravity,Urine 1.003 (1.002-1.035)
--- NOTE | 2018-04-08 23:29 | CT ---
EXAM DATE: 04/08/2018 11:10 PM EDT AGE/SEX: 83 years / Male INDICATIONS: Urinary retention and hematuria. CLINICAL DATA: This is the patient's initial encounter. Patient reports that signs and symptoms have been present for 1 day and indicates a pain score of 6/10. MEDICAL/SURGICAL HISTORY: Carcinoma, prostatic. Cardiovascular disease. Hypertension. Pacemak er. CABG. Left nephrostomy tube ORAL CONTRAST: No oral contrast ingested. RADIATION DOSE: 6.64 CTDI (mGy) COMPARISON: [facility] [place] & [place]ELVIS W CONTRAST, 12/23/2017. . TECHNIQUE: Multiple contiguous axial images were obtained through the abdomen and pelvis following b olus infusion of 49 ml Visipaque 320 (iodixanol) nonionic water-soluble contrast as a single exam d ose. No oral contrast ingested. Using automated exposure control and adjustment of the mA and/or kV according to patient size, radiation dose was kept as low as reasonably achievable to obtain optimal diagnostic quality images. DICOM format image data is available electronically for review and compar jomar. FINDINGS: Patient has a percutaneous nephrostomy tube on the left and the catheter loop is formed in the renal pelvis. Slight hydronephrosis noted. Left kidney is atrophic. The collecting system appears indurated . There is patchy marked dilatation of the distal portions of the ureter measuring up to 1.5 cm and w ith increased density. Proximal portions of the ureter are normal caliber. 6.6 x 7.3 x 5.7 cm increas ed density mass or clot seen in the urinary bladder. The bladder is moderately distended with urine a t the time of imaging. A Lobo catheter is present. Small bilateral renal cysts are present. Liver is fatty infiltrated. Spleen, pancreas and adrenal gla nds are within normal limits. No lymphadenopathy. No free fluid or free air. No obstruction or inflam matory changes are seen of the gastrointestinal tract. Severe aortoiliac atherosclerosis again noted. Mild interstitial opacities of the visualized lung bases; the degree of pulmonary edema would be in t he differential. Patient has a cardiac pacer/defibrillator. No acute bony abnormality demonstrated. Fat-containing umbilical and inguinal hernia is again seen. CONCLUSION: 1. Mass versus large clot in the urinary bladder and appears to be obstructing the Lobo catheter. U rinary bladder is moderately distended at the time of imaging. There is either mass or clot of the di stal ureter as well. 2. External nephrostomy tube present on the left and appears to be appropriately positioned. No hydr onephrosis but the collecting system appears indurated. Upper urinary tract infection should be inclu ded in the differential. 3. Slight degree of pulmonary edema suspected. 4. Liver is fatty infiltrated. Electronically signed by: Brian Ludwig MD 04/08/2018 11:28 PM EDT
[2018-04-09] MEDS ORDERED: Morphine Sulfate Inj 2 MG/ML Vial IV.PUSH ONE
[2018-04-09] MEDS ORDERED: Bisacodyl 10 MG Supp RECTAL PRN (00:02)
[2018-04-09] MEDS: Sod Chloride 0.9% Inj 1,000 ML IV.CONT SCH ×2 (00:46→16:53)
--- NOTE | 2018-04-09 05:59 | P.HPIM ---
History of Present Illness Primary Care Physician: [facility] Insurance History of Present Illness: 83-year-old male with a history of coronary artery disease status post CABG, peripheral artery disease, fibrillation status post pacemaker placement, left- sided hydronephrosis status post nephrostomy tube 3 months ago, prostate cancer status post radioactive seed implantation who presents with a 1 day history of hematuria with constant dull suprapubic abdominal pain, inability to urinate. Patient had Lobo placed in the ER with some discomfort, and is undergone bladder irrigation with improvement in pain. Patient says he is otherwise feeling right. Denies any chest pain, shortness breath, nausea, vomiting, fevers, chills, diarrhea, constipation. Review of Systems All other systems reviewed negative except as stated in HPI PMFSH - History History Provided By: Patient - Medical History Medical History: Medical History (Last Reviewed 04/09/18 @ 05:51 by Dev Hair MD) Acid reflux Afib Cardiac pacemaker DVT (deep venous thrombosis) Gout Hard of hearing Hypercholesteremia Hypertension Kidney damage Prostate cancer Umbilical hernia - Surgical History Surgical History: Surgical History (Last Reviewed 04/09/18 @ 05:51 by Dev Hair MD) Hx of nephrostomy (Acute) H/O heart bypass surgery - Family History Family History: Family History (Last Updated 04/09/18 @ 05:52 by Dev Hair MD) Father Cancer Mother Heart problem Other Family history non-contributory - Tobacco History Second Hand Smoke Exposure: No Tobacco Use In Past 30 Days: No Smoking Status: Former smoker Tobacco Type: Cigarettes - Alcohol History How Often Do You Have a Drink Containing Alcohol: Never - Substance Use History Substance History: No History of Abuse - Travel History Recent Travel in the [place] Within the Last 8 Weeks: No Recent Travel Out of the Country Within the Last 8 Weeks: No - Immunization History Tetanus Immunization: Unsure Medications and Allergies Active Medications: Active Medications Al Hydroxide/Mg Hydroxide (Milk Of Magnesia Liq) 30 ml PO Q12H PRN PRN Reason: Mild Constipation Allopurinol (Zyloprim) 150 mg PO DAILY [facility] Bisacodyl (Dulcolax Supp) 10 mg RECTAL DAILY PRN PRN Reason: SEVERE CONSITIPATION Finasteride (Proscar) 5 mg PO DAILY [facility] Sodium Chloride (Ns Inj) 1,000 mls @ 65 mls/hr IV.CONT .[id number] [facility] Last Admin: 04/09/18 00:46 Dose: 65 mls/hr Lactulose (Lactulose Liq) 30 ml PO DAILY PRN PRN Reason: SEVERE CONSITIPATION Magnesium Oxide (Mag-Ox) 400 mg PO DAILY [facility] Metoprolol Succinate (Toprol Xl) 50 mg PO DAILY [facility] Sennosides (Senokot) 17.2 mg PO Q12H PRN PRN Reason: Moderate Constipation Allergies Allergy/AdvReac Type Severity Reaction Status Date / Time No Known Allergies Allergy Verified 04/08/18 20:52 Home Medications Medication Instructions Recorded Confirmed Type allopurinol 150 mg PO DAILY 12/23/17 04/08/18 History coenzyme Q10 [Co Q-10] 100 mg PO DAILY 12/23/17 04/08/18 History finasteride 5 mg PO DAILY 12/23/17 04/08/18 History isosorbide mononitrate 10 mg PO HS 12/23/17 04/08/18 History magnesium 500 mg PO DAILY 12/23/17 04/08/18 History metoprolol succinate 50 mg PO DAILY 12/23/17 04/08/18 History tqgicfrt-yhn-FK-lycopen-lutein 1 tab PO DAILY 12/23/17 04/08/18 History [Centrum Silver] polyethylene glycol 3350 [Miralax] 17 g PO DAILY PRN 12/23/17 04/08/18 History vit C-vit P-ntngdn-ibam-lutein 1 tab PO DAILY 12/23/17 04/08/18 History [PreserVision Lutein] Exam Vital signs: Vital Signs 04/08/18 20:51 04/09/18 02:19 04/09/18 04:00 Temperature 97.1 F L 97.7 F 97.5 F L Pulse Rate 94 H 93 H 86 Respiratory Rate 18 19 17 Blood Pressure 171/79 H 131/70 131/80 Pulse Oximetry 97 89 L 95 Intake & Output 04/08/18 04/08/18 04/09/18 06:59 18:59 06:59 Intake Total 100 / 100 Balance 100 / 100 Weight 61.56 kg Intake: IV 100 / 100 Rocephin Inj 1,000 MG In NS Inj 100 / 100 100 ML @ 200 mls/hr IV.SIG ONCE ONE Rx#:[id number] Other: Date of Last Bowel Movement 04/08/18 Weight On Admission 60.7 kg Narrative: GENERAL: Patient sitting in bed. Appears comfortable. Alert and oriented x3. SKIN: Warm and dry. HEAD: Atraumatic. Normocephalic. EYES: Pupils equal and round. No scleral icterus. No injection or drainage. ENT: No nasal bleeding or discharge. Mucous membranes pink and moist. NECK: Trachea midline. No JVD. CARDIOVASCULAR: Regular rate and rhythm. RESPIRATORY: No accessory muscle use. Clear to auscultation. Breath sounds equal bilaterally. GASTROINTESTINAL: Abdomen soft, non-tender, nondistended. Hepatic and splenic margins not palpable. MUSCULOSKELETAL: Extremities without clubbing, cyanosis, or edema. No obvious deformities. NEUROLOGICAL: Awake and alert. No obvious cranial nerve deficits. Motor grossly within normal limits. Five out of 5 muscle strength in the arms and legs. Normal speech. Genitourinary = Patient with hematuria in Lobo bag. Left-sided nephrostomy tube draining yellow urine. PSYCHIATRIC: Appropriate mood and affect; insight and judgment normal. Results - Labs CBC & Chem 7: 04/08/18 21:32 04/08/18 21:32 Labs: Short CBC 04/08/18 Range/Units 21:32 WBC 8.2 (4.0-11.0) th/mm3 Hgb 13.1 (13.0-17.0) gm/dL Hct 38.4 L (39.0-51.0) % Plt Count 136 L (150-450) th/mm3 BMP 04/08/18 21:32 Sodium 144 Potassium 4.5 Chloride 110 H Carbon Dioxide 26.5 BUN 43 H Creatinine 1.68 H Calcium 8.6 Urine 04/08/18 Range/Units 22:05 Urine Color Red (Yellw/Straw) Urine Clarity Hazy H (Clear) Urine pH 6.0 (5.0-8.5) Ur Specific [place] 1.003 (1.002-1.035) Urine Protein 100 H (Neg-Trace) mg/dL Urine Glucose (UA) 50 (Negative) mg/dL - Imaging Impressions Abdomen/Pelvis CT 04/08/18 22:04 CONCLUSION: 1. Mass versus large clot in the urinary bladder and appears to be obstructing the Lobo catheter. Urinary bladder is moderately distended at the time of imaging. There is either mass or clot of the distal ureter as well. 2. External nephrostomy tube present on the left and appears to be appropriately positioned. No hydronephrosis but the collecting system appears indurated. Upper urinary tract infection should be included in the differential. 3. Slight degree of pulmonary edema suspected. 4. Liver is fatty infiltrated. Caprini VTE Risk Assessment Caprini VTE Risk Assessment: Moderate/High Risk (score >= 2) Caprini Risk Assessment Model: Point Value = 1 Point Value = 2 Point Value = 3 Point Value = 5 Age 41-60 Minor surgery BMI > 25 kg/m2 Swollen legs Varicose veins or History of unexplained or recurrent spontaneous Oral contraceptives or hormone replacement Sepsis (< 1 month) Serious lung disease, including pneumonia (< 1 month) Abnormal pulmonary function Acute myocardial infarction Congestive heart failure (< 1 month) History of inflammatory bowel disease Medical patient at bed rest Age 61-74 Arthroscopic surgery Major open surgery (> 45 min) Laparoscopic surgery (> 45 min) Malignancy Confined to bed (> 72 hours) Immobilizing plaster cast Central venous access Age >= 75 History of VTE Family history of VTE Factor V Leiden Prothrombin [id number] Lupus anticoagulant Anticardiolipin antibodies Elevated serum homocysteine Heparin-induced thrombocytopenia Other congenital or acquired thrombophilia Stroke (< 1 month) Elective arthroplasty Hip, pelvis, or leg fracture Acute spinal cord injury (< 1 month) Prophylaxis Regimen: Total Risk Factor Score Risk Level Prophylaxis Regimen 0-1 Low Early ambulation 2 Moderate Order ONE of the following: *Sequential Compression Device (SCD) *Heparin 5000 units SQ BID 3-4 Higher Order ONE of the following medications: *Heparin 5000 units SQ TID *Enoxaparin/Lovenox 40 mg SQ daily (WT < 150 kg, CrCl > 30 mL/min) *Enoxaparin/Lovenox 30 mg SQ daily (WT < 150 kg, CrCl > 10-29 mL/min) *Enoxaparin/Lovenox 30 mg SQ BID (WT < 150 kg, CrCl > 30 mL/min) AND/OR *Sequential Compression Device (SCD) 5 or more Highest Order ONE of the following medications: *Heparin 5000 units SQ TID (Preferred with Epidurals) *Enoxaparin/Lovenox 40 mg SQ daily (WT < 150 kg, CrCl > 30 mL/min) *Enoxaparin/Lovenox 30 mg SQ daily (WT < 150 kg, CrCl > 10-29 mL/min) *Enoxaparin/Lovenox 30 mg SQ BID (WT < 150 kg, CrCl > 30 mL/min) AND *Sequential Compression Device (SCD) Assessment and Plan - Plan //Acute hematuria //History of BPH -CT abdomen shows obstructive clot. This appears to have cleared after bladder irrigation. = CT also shows induration of the left sided ureter, likely due to irritation, this does not appear to be the source of bleeding and no signs of infection. Continue finasteride. Urology consulted. Continuous bladder irrigation. //History of atrial fibrillation -Continue home medication. Patient appears not to be on anticoagulation. //Gout. Chronic. Continue home medication. Discussed Condition With: Patient, nurse, ED physician. H&P: Quality - VTE Deep Vein Thrombosis/Pulmonary Embolism Present on Admission: No
[2018-04-09] MEDS: Morphine Inj 4 MG/ML Vial IV.PUSH PRN (06:42)
[2018-04-09] MEDS: Magnesium Oxide 400 MG Tablet PO SCH (09:11)
[2018-04-09] MEDS: Allopurinol 300 MG Tablet PO SCH (09:11)
[2018-04-09] MEDS: Finasteride 5 MG Tablet PO SCH (09:11)
--- NOTE | 2018-04-09 10:16 | P.CONURO ---
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 Bell. Patient has been having problems with recurrent gross hematuria over the past several months. His last episode was approximately 3 weeks ago in which he was treated with continuous bladder irrigation. Patient was scheduled to undergo cystoscopic evaluation however his urine subsequently cleared and the patient had his Lobo removed. He reports that he had been voiding spontaneously for the past several weeks up until yesterday when he once again developed hematuria with clot passage. He had progressive difficulty with spontaneously voiding and presented to the emergency room. A three-way Lobo was placed and the patient started on continuous bladder irrigation. A CT scan of the abdomen pelvis was also performed which once again demonstrated an atrophic left kidney with a properly placed nephrostomy tube. There was some thickening noted to the distal left ureter along with clots within the urinary bladder. At the time of consultation the patient reported that he felt significantly better. His CBI was running at a very slow rate with light to medium red urine output. Patient denied any flank pain. He reports that the left nephrostomy tube has been draining clear yellow urine although he has only minimal output. He also reports that he has been referred to a tertiary care center for consideration of a left nephrectomy. Review of Systems All other systems reviewed negative except as stated in HPI PMFSH - History History Provided By: Patient - Medical History Medical History: Medical History (Last Reviewed 04/09/18 @ 05:51 by Dev Hair MD) Acid reflux Afib Cardiac pacemaker DVT (deep venous thrombosis) Gout Hard of hearing Hypercholesteremia Hypertension Kidney damage Prostate cancer Umbilical hernia - Surgical History Surgical History: Surgical History (Last Reviewed 04/09/18 @ 05:51 by Dev Hair MD) Hx of nephrostomy (Acute) H/O heart bypass surgery - Family History Family History: Family History (Last Updated 04/09/18 @ 05:52 by Dev Hair MD) Father Cancer Mother Heart problem Other Family history non-contributory - Tobacco History Second Hand Smoke Exposure: No Tobacco Use In Past 30 Days: No Smoking Status: Former smoker Tobacco Type: Cigarettes - Alcohol History How Often Do You Have a Drink Containing Alcohol: Never - Substance Use History Substance History: No History of Abuse - Travel History Recent Travel in the [place] Within the Last 8 Weeks: No Recent Travel Out of the Country Within the Last 8 Weeks: No - Immunization History Tetanus Immunization: Unsure Medications and Allergies Active Medications: Active Medications Al Hydroxide/Mg Hydroxide (Milk Of Magnesia Liq) 30 ml PO Q12H PRN PRN Reason: Mild Constipation Allopurinol (Zyloprim) 150 mg PO DAILY [facility] Last Admin: 04/09/18 09:11 Dose: 150 mg Bisacodyl (Dulcolax Supp) 10 mg RECTAL DAILY PRN PRN Reason: SEVERE CONSITIPATION Finasteride (Proscar) 5 mg PO DAILY [facility] Last Admin: 04/09/18 09:11 Dose: 5 mg Sodium Chloride (Ns Inj) 1,000 mls @ 65 mls/hr IV.CONT .[id number] [facility] Last Admin: 04/09/18 00:46 Dose: 65 mls/hr Lactulose (Lactulose Liq) 30 ml PO DAILY PRN PRN Reason: SEVERE CONSITIPATION Magnesium Oxide (Mag-Ox) 400 mg PO DAILY [facility] Last Admin: 04/09/18 09:11 Dose: 400 mg Metoprolol Succinate (Toprol Xl) 50 mg PO DAILY [facility] Last Admin: 04/09/18 09:11 Dose: 50 mg Morphine Sulfate (Morphine Inj) 2 mg IV.PUSH Q3H PRN PRN Reason: pain 1 to 10 Last Admin: 04/09/18 06:42 Dose: 2 mg Sennosides (Senokot) 17.2 mg PO Q12H PRN PRN Reason: Moderate Constipation Allergies Allergy/AdvReac Type Severity Reaction Status Date / Time No Known Allergies Allergy Verified 04/08/18 20:52 Home Medications Medication Instructions Recorded Confirmed Type allopurinol 150 mg PO DAILY 12/23/17 04/08/18 History coenzyme Q10 [Co Q-10] 100 mg PO DAILY 12/23/17 04/08/18 History finasteride 5 mg PO DAILY 12/23/17 04/08/18 History isosorbide mononitrate 10 mg PO HS 12/23/17 04/08/18 History magnesium 500 mg PO DAILY 12/23/17 04/08/18 History metoprolol succinate 50 mg PO DAILY 12/23/17 04/08/18 History raimplxl-scu-XG-lycopen-lutein 1 tab PO DAILY 12/23/17 04/08/18 History [Centrum Silver] polyethylene glycol 3350 [Miralax] 17 g PO DAILY PRN 12/23/17 04/08/18 History vit C-vit J-wdkltd-xmgc-lutein 1 tab PO DAILY 12/23/17 04/08/18 History [PreserVision Lutein] Physical Exam Vital Signs - 24 hr 04/08/18 20:51 04/09/18 02:19 04/09/18 04:00 Temperature 97.1 F L 97.7 F 97.5 F L Pulse Rate 94 H 93 H 86 Respiratory Rate 18 19 17 Blood Pressure 171/79 H 131/70 131/80 Pulse Oximetry 97 89 L 95 04/09/18 08:26 Temperature 97.3 F L Pulse Rate 79 Respiratory Rate 16 Blood Pressure 136/77 Pulse Oximetry 92 L Physical Exam: GENERAL: This is a well-nourished, well-developed patient, in no apparent distress. SKIN: No rashes, ecchymoses or lesions. Cool and dry. HEAD: Atraumatic. Normocephalic. No temporal or scalp tenderness. EYES: Pupils equal round and reactive. Extraocular motions intact. No scleral icterus. No injection or drainage. ENT: Nose without bleeding, purulent drainage or septal hematoma. Throat without erythema, tonsillar hypertrophy or exudate. Uvula midline. Airway patent. NECK: Trachea midline. No JVD or lymphadenopathy. Supple, nontender, no meningeal signs. GASTROINTESTINAL: Abdomen soft, non-tender, nondistended. No hepato-splenomegaly , or palpable masses. No guarding. GENITOURINARY: Three-way Lobo catheter in place with light to medium red output. Bladder not distended. Left nephrostomy tube in place with clear urine output. MUSCULOSKELETAL: Extremities without clubbing, cyanosis, or edema. No joint tenderness, effusion, or edema noted. No calf tenderness. Negative Homans sign bilaterally. NEUROLOGICAL: Awake and alert. Cranial nerves II through XII intact. Motor and sensory grossly within normal limits. Five out of 5 muscle strength in all muscle groups. Normal speech. Laboratory Results - last 24 hr 10/28/18 10/28/18 10/28/18 21:32 21:32 21:32 WBC 8.2 RBC 3.75 L Hgb 13.1 Hct 38.4 L MCV 102.3 H MCH 35.0 H MCHC 34.2 RDW 16.7 Plt Count 136 L MPV 7.8 Neut % (Auto) 79.9 H Lymph % (Auto) 6.3 L [place] % (Auto) 11.4 H Eos % (Auto) 1.8 Baso % (Auto) 0.6 Neut # (Auto) 6.5 Lymph # (Auto) 0.5 L [place] # (Auto) 0.9 Eos # (Auto) 0.1 Baso # (Auto) 0.1 WBC Differential . Differential Comment Auto diff final PT 11.3 INR 1.1 APTT 27.7 Sodium 144 Potassium 4.5 Chloride 110 H Carbon Dioxide 26.5 Anion Gap 8 BUN 43 H Creatinine 1.68 H Estimated GFR 39 L Random Glucose 124 H Calcium 8.6 Urine Color Urine Clarity Urine pH Ur Specific [place] Urine Protein Urine Glucose (UA) Urine Ketones Urine Occult Blood Urine Nitrate Urine Bilirubin Urine Urobilinogen Ur Leukocyte Esterase Urine RBC Urine WBC Urine Bacteria Urine Mucus Micro UA Comment Ur Microscopic Review Urine Culture Comments 04/08/18 22:05 WBC RBC Hgb Hct MCV MCH MCHC RDW Plt Count MPV Neut % (Auto) Lymph % (Auto) [place] % (Auto) Eos % (Auto) Baso % (Auto) Neut # (Auto) Lymph # (Auto) [place] # (Auto) Eos # (Auto) Baso # (Auto) WBC Differential Differential Comment PT INR APTT Sodium Potassium Chloride Carbon Dioxide Anion Gap BUN Creatinine Estimated GFR Random Glucose Calcium Urine Color Red Urine Clarity Hazy H Urine pH 6.0 Ur Specific [place] 1.003 Urine Protein 100 H Urine Glucose (UA) 50 Urine Ketones Negative Urine Occult Blood Moderate H Urine Nitrate Negative Urine Bilirubin Negative Urine Urobilinogen Less than 2 Ur Leukocyte Esterase Small H Urine RBC 34 H Urine WBC 30 H Urine Bacteria Many H Urine Mucus Few H Micro UA Comment Cath-culture ind Ur Microscopic Review Not Reportable Urine Culture Comments Cath-cult indicated Result Diagrams: 04/08/18 21:32 04/08/18 21:32 Imaging: ITS Impressions Abdomen/Pelvis CT 04/08/18 22:04 CONCLUSION: 1. Mass versus large clot in the urinary bladder and appears to be obstructing the Lobo catheter. Urinary bladder is moderately distended at the time of imaging. There is either mass or clot of the distal ureter as well. 2. External nephrostomy tube present on the left and appears to be appropriately positioned. No hydronephrosis but the collecting system appears indurated. Upper urinary tract infection should be included in the differential. 3. Slight degree of pulmonary edema suspected. 4. Liver is fatty infiltrated. Assessment and Plan - Assessment (1) Gross hematuria Code(s): R31.0 - Gross hematuria Status: Acute - Plan Urologic impression: 1. Recurrent gross hematuria which is presently resolving 2. History prostate cancer as the likely source of the hematuria 3. 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 Continue with CBI and titrate off as urine continues to clear 2. May discharge home with Lobo to gravity once hematuria fully resolved 3. Patient to follow-up with his established urologist Dr. Bell after hospital discharge for ongoing urologic care
[2018-04-09 16:38] LABS: Hematocrit 38.2 % (39.0-51.0); Hemoglobin 12.3 gm/dL (13.0-17.0)
[2018-04-09] MEDS ORDERED: HYDROmorphone PF Inj 2 MG/ML Vial IV.PUSH ONE (19:14)
[2018-04-09 22:23] LABS: Hematocrit 35.6 % (39.0-51.0); Hemoglobin 11.5 gm/dL (13.0-17.0)
[2018-04-10] MEDS: Sod Chloride 0.9% Inj 1,000 ML IV.CONT SCH ×2 (06:44→23:32)
[2018-04-10 09:14] LABS: Baso % (Auto) 0.3 % (0.0-2.0); Eos % (Auto) 0.1 % (0.0-4.0); Hematocrit 33.8 % (39.0-51.0); Hemoglobin 11.2 gm/dL (13.0-17.0); Lymph # (Auto) 0.4 th/mm3 (1.0-4.8); Lymph % (Auto) 4.3 % (9.0-44.0); Mean Corpuscular HGB Conc 33.2 % (32.0-36.0); Mean Corpuscular Hemoglobin 35.1 pg (27.0-34.0); Mean Corpuscular Volume 105.8 fL (80.0-100.0); Mean Platelet Volume 7.9 fL (7.0-11.0); Mono % (Auto) 10.6 % (0.0-8.0); Neut # (Auto) 7.8 th/mm3 (1.8-7.7); Neut % (Auto) 84.7 % (16.0-70.0); Platelet Count 110 th/mm3 (150-450); Red Cell Distribution Width 16.6 % (11.6-17.2); White Blood Count 9.2 th/mm3 (4.0-11.0)
[2018-04-10 09:35] LABS: Albumin 2.9 g/dL (3.4-5.0); Anion Gap 10 meq/L (5-15); Aspartate Aminotransferase 13 U/L (15-37); Blood Urea Nitrogen 40 mg/dL (7-18); Calcium 8.1 mg/dL (8.5-10.1); Carbon Dioxide 21.3 meq/L (21.0-32.0); Chloride 111 meq/L (98-107); Glomerular Filtration Rate 24 mL/min (>89); Potassium 4.8 meq/L (3.5-5.1); Sodium 142 meq/L (136-145)
[2018-04-10 09:36] LABS: Glucose,Random 93 mg/dL (74-106)
[2018-04-10 09:40] LABS: Alanine Aminotransferase 13 U/L (12-78); Alkaline Phosphatase 74 U/L (45-117); Total Protein 6.3 g/dL (6.4-8.2)
--- NOTE | 2018-04-10 09:48 | P.PN ---
Subjective Interval history: Follow-up for hematuria. Patient reports overall feeling much better today. He reports his suprapubic pain is much improved, only has some mild discomfort today. Denies any fevers or chills. His hematuria is improving, denies any clots in the Lobo bag, however still with dark maroon colored urine. He denies any lightheadedness, dizziness, chest pain shortness of breath, nausea/ vomiting, or diarrhea. He has not yet had a bowel movement since arrival. He has no other medical complaints at this time. Physical Exam Vital signs: Vital Signs 04/09/18 11:53 04/09/18 15:42 04/09/18 20:51 Temperature 98.1 F 98.8 F 99.4 F Pulse Rate 92 H 91 H 109 H Respiratory Rate 18 16 17 Blood Pressure 159/76 H 160/74 H 138/81 Pulse Oximetry 92 L 90 L 91 L 04/09/18 23:39 04/10/18 04:00 04/10/18 06:40 Temperature 99.1 F 98.3 F Pulse Rate 96 H 92 H Respiratory Rate 18 17 18 Blood Pressure 133/66 143/75 H Pulse Oximetry 91 L 92 L 04/10/18 08:00 Temperature 98.7 F Pulse Rate 92 H Respiratory Rate 16 Blood Pressure 136/67 Pulse Oximetry 91 L Intake & Output 04/09/18 04/10/18 04/10/18 18:59 06:59 18:59 Intake Total 1000 / 1000 900 / 900 Output Total 900 / 900 Balance 100 / 100 900 / 900 Weight 64.2 kg Intake: IV 1000 / 1000 900 / 900 NS Inj 1,000 ML @ 65 mls/hr IV. 1000 / 1000 900 / 900 CONT .[id number] [facility] Rx#:[id number] Output: Urine Amount (Catheter) 900 / 900 3-way Urethral 900 / 900 Other: Bladder Irrigation Fluid - Amount Instilled 3-way Urethral 3,000 Bladder Irrigation Fluid - Amount Drained 3-way Urethral 2,550 Date of Last Bowel Movement 04/08/18 04/08/18 Narrative: GENERAL: Well-nourished, well-developed elderly male patient in [facility]. SKIN: Warm and dry. No rash. HEENT: Normocephalic. Atraumatic. Pupils equal and round. Mucous membranes pink and moist. CARDIOVASCULAR: Regular rate and rhythm. No murmur appreciated. RESPIRATORY: No accessory muscle use. Clear to auscultation. Breath sounds equal bilaterally. GASTROINTESTINAL: Abdomen soft, non-tender, nondistended. Normoactive bowel sounds x4. GENITOURINARY: Lobo in place with dark maroon colored urine, no significant clots. Left-sided nephrostomy tube draining yellow urine. MUSCULOSKELETAL: No obvious deformities. Extremities without clubbing, cyanosis , or edema. NEUROLOGICAL: Awake and alert. No obvious cranial nerve deficits. Moving all extremities spontaneously. Normal speech. PSYCHIATRIC: Appropriate mood and affect; insight and judgment normal. - Urinary Catheter Management 3-way Urethral Cath placed during this visit: yes, but has since been removed by the nurse Reason for continuing: Gross Hematuria Insertion date: 04/09/18 Insertion time: 20:00 Removal date: 04/09/18 Removal time: 19:50 Results - Labs CBC & Chem 7: 04/10/18 08:19 04/10/18 08:19 Laboratory Results - last 24 hr 04/09/18 04/09/18 04/10/18 16:14 22:15 08:19 WBC 9.2 RBC 3.20 L Hgb 12.3 L 11.5 L 11.2 L Hct 38.2 L 35.6 L 33.8 L MCV 105.8 H D MCH 35.1 H MCHC 33.2 RDW 16.6 Plt Count 110 L MPV 7.9 Neut % (Auto) 84.7 H Lymph % (Auto) 4.3 L Payne % (Auto) 10.6 H Eos % (Auto) 0.1 Baso % (Auto) 0.3 Neut # (Auto) 7.8 H Lymph # (Auto) 0.4 L Payne # (Auto) 1.0 H Eos # (Auto) 0.0 Baso # (Auto) 0.0 WBC Differential . Differential Comment Auto diff final Sodium Potassium Chloride Carbon Dioxide Anion Gap BUN Creatinine Estimated GFR Random Glucose Calcium AST Albumin 04/10/18 08:19 WBC RBC Hgb Hct MCV MCH MCHC RDW Plt Count MPV Neut % (Auto) Lymph % (Auto) Payne % (Auto) Eos % (Auto) Baso % (Auto) Neut # (Auto) Lymph # (Auto) Payne # (Auto) Eos # (Auto) Baso # (Auto) WBC Differential Differential Comment Sodium 142 Potassium 4.8 Chloride 111 H Carbon Dioxide 21.3 Anion Gap 10 BUN 40 H Creatinine 2.57 H Estimated GFR 24 L Random Glucose 93 Calcium 8.1 L AST 13 L Albumin 2.9 L Microbiology 04/08/18 22:05 Catheterized Urine Urine Culture - Preliminary No growth in 24 hours - Imaging Abdomen/Pelvis CT 04/08/18 22:04 CONCLUSION: 1. Mass versus large clot in the urinary bladder and appears to be obstructing the Lobo catheter. Urinary bladder is moderately distended at the time of imaging. There is either mass or clot of the distal ureter as well. 2. External nephrostomy tube present on the left and appears to be appropriately positioned. No hydronephrosis but the collecting system appears indurated. Upper urinary tract infection should be included in the differential. 3. Slight degree of pulmonary edema suspected. 4. Liver is fatty infiltrated. Assessment and Plan - Plan 83-year-old male with a history of coronary artery disease status post CABG, peripheral artery disease, atrial fibrillation status post pacemaker placement, left-sided hydronephrosis status post nephrostomy tube 3 months ago, prostate cancer status post radioactive seed implantation who presents with a 1 day history of hematuria with constant dull suprapubic abdominal pain, inability to urinate. Acute hematuria: with hx of BPH, prostate cancer, left sided nephrostomy tube -CT abd/pelvis reviewed, shows large clot in the urinary bladder and appears to be obstructing the Lobo catheter. Urinary bladder is moderately distended; External nephrostomy tube present on the left and appears to be appropriately positioned. No hydronephrosis but the collecting system appears indurated -S/p Lobo insertion in the ER with bladder irrigation -Urine culture with NGTD -Continue on CBI -Continue finasteride. -Monitor CBC, Hgb stabilizing around 11.2 -Urology consulted, recommends continue CBI and titrate off as urine continues to clear; May discharge home with Lobo to gravity once hematuria fully resolved. History of atrial fibrillation/CAD/CABG: chronic -Continue home metoprolol and imdur -patient's baby aspirin is on hold, Patient reports he has not tolerated any stronger anticoagulation in the past Gout: Chronic. -Continue patient's allopurinol All other chronic medical conditions stable, continue home meds as appropriate. DVT Prophylaxis: teds/SCDs; avoid chemoprophylaxis with active bleeding Discharge Planning: Not yet ready for discharge. Will plan to discharge when urine more clear and patient is off CBI. Likely discharge tomorrow 04/11.
[2018-04-10] MEDS: Magnesium Oxide 400 MG Tablet PO SCH (10:30)
[2018-04-10] MEDS: Finasteride 5 MG Tablet PO SCH (11:33)
[2018-04-10] MEDS: Allopurinol 300 MG Tablet PO SCH (11:34)
[2018-04-10] MEDS: Isosorbide Mononitrate 20 MG Tablet PO SCH (21:41)
[2018-04-11] MEDS: Allopurinol 300 MG Tablet PO SCH (09:27)
[2018-04-11] MEDS: Magnesium Oxide 400 MG Tablet PO SCH (09:27)
[2018-04-11] MEDS: Finasteride 5 MG Tablet PO SCH (09:28)
--- NOTE | 2018-04-11 11:17 | P.PN ---
Subjective Interval history: Follow-up for hematuria. Patient reports he had a rough night last night with recurrent obstructive Lobo secondary to clots. He states once the clots were flushed, his pain subsided and now his urine is more clear. He still has some mild diffuse suprapubic tenderness to palpation. Family at bedside, concerned that the patient has bilateral hand tremor which is new for him. He states he feels weak and fatigued. Denies any current lightheadedness or dizziness. He does not feel ready to go home. Physical Exam Vital signs: Vital Signs 04/10/18 12:00 04/10/18 16:00 04/10/18 19:55 Temperature 97.7 F 99.1 F 101.1 F H Pulse Rate 83 86 98 H Respiratory Rate 18 16 17 Blood Pressure 135/72 134/62 119/65 Pulse Oximetry 93 L 91 L 94 L 04/10/18 23:53 04/11/18 04:00 04/11/18 08:00 Temperature 98.7 F 98.8 F 98.2 F Pulse Rate 94 H 83 95 H Respiratory Rate 18 18 16 Blood Pressure 108/52 L 113/59 L 156/70 H Pulse Oximetry 92 L 93 L 96 Intake & Output 04/10/18 04/11/18 04/11/18 18:59 06:59 18:59 Intake Total 720 / 720 2103 / 2103 Output Total 3050 / 3050 Balance -2330 / -2330 2102 / 2102 Intake: IV 903 / 903 NS Inj 1,000 ML @ 65 mls/hr IV. 903 / 903 CONT .[id number] [facility] Rx#:[id number] Oral 720 / 720 1200 / 1200 Output: Urine Amount (Catheter) 3050 / 3050 3-way Urethral 3050 / 3050 Other: Bladder Irrigation Fluid - Amount Instilled 3-way Urethral 1,100 Bladder Irrigation Fluid - Amount Drained 3-way Urethral 1,300 Date of Last Bowel Movement 04/08/18 04/10/18 # Bowel Movements 1 Narrative: GENERAL: Well-nourished, well-developed elderly male patient in [facility]. SKIN: Warm and dry. No rash. HEENT: Normocephalic. Atraumatic. Pupils equal and round. Mucous membranes pink and moist. CARDIOVASCULAR: Regular rate and rhythm. No murmur appreciated. RESPIRATORY: No accessory muscle use. Clear to auscultation. Breath sounds equal bilaterally. GASTROINTESTINAL: Abdomen soft, non-tender, nondistended. Normoactive bowel sounds x4. GENITOURINARY: Lobo in place with pink blood-tinged urine, no clots. Left- sided nephrostomy tube draining yellow urine; dressing CDI. MUSCULOSKELETAL: No obvious deformities. Extremities without clubbing, cyanosis , or edema. NEUROLOGICAL: Awake and alert. No obvious cranial nerve deficits. Moving all extremities spontaneously. Normal speech. PSYCHIATRIC: Appropriate mood and affect; insight and judgment normal. - Urinary Catheter Management 3-way Urethral Cath placed during this visit: yes, but has since been removed by the nurse Reason for continuing: Gross Hematuria Insertion date: 04/09/18 Insertion time: 20:00 Removal date: 04/09/18 Removal time: 19:50 Results - Labs CBC & Chem 7: 04/10/18 08:19 04/10/18 08:19 Microbiology 04/08/18 22:05 Catheterized Urine Urine Culture - Final No growth in 48 hours - Imaging Abdomen/Pelvis CT 04/08/18 22:04 CONCLUSION: 1. Mass versus large clot in the urinary bladder and appears to be obstructing the Lobo catheter. Urinary bladder is moderately distended at the time of imaging. There is either mass or clot of the distal ureter as well. 2. External nephrostomy tube present on the left and appears to be appropriately positioned. No hydronephrosis but the collecting system appears indurated. Upper urinary tract infection should be included in the differential. 3. Slight degree of pulmonary edema suspected. 4. Liver is fatty infiltrated. Assessment and Plan - Plan 83-year-old male with a history of coronary artery disease status post CABG, peripheral artery disease, atrial fibrillation status post pacemaker placement, left-sided hydronephrosis status post nephrostomy tube 3 months ago, prostate cancer status post radioactive seed implantation who presents with a 1 day history of hematuria with constant dull suprapubic abdominal pain, inability to urinate. Acute hematuria: with hx of BPH, prostate cancer, left sided nephrostomy tube -CT abd/pelvis reviewed, shows large clot in the urinary bladder and appears to be obstructing the Lobo catheter. Urinary bladder is moderately distended; External nephrostomy tube present on the left and appears to be appropriately positioned. No hydronephrosis but the collecting system appears indurated -S/p Lboo insertion in the ER with bladder irrigation -Urine culture with NGTD -Continue on CBI -Continue finasteride. -Monitor CBC, Hgb stabilizing around 11.2 -Urology consulted, recommends continue CBI and titrate off as urine continues to clear; May discharge home with Lobo to gravity once hematuria fully resolved. -04/11 Patient with recurrent obstructive clots in Lobo last night, improving, continue CBI SRIDHAR: postrenal secondary to obstructive uropathy -Cr increased from 1.68 to 2.57 -Continue IVF and CBI as above -Avoid nephrotoxins -Monitor renal function History of atrial fibrillation/CAD/CABG: chronic -Continue home metoprolol and imdur -patient's baby aspirin is on hold, Patient reports he has not tolerated any stronger anticoagulation in the past due to bleeding Gout: Chronic. -Continue patient's allopurinol All other chronic medical conditions stable, continue home meds as appropriate. DVT Prophylaxis: teds/SCDs; avoid chemoprophylaxis with active bleeding Discharge Planning: Not yet ready for discharge. Will plan to discharge when urine more clear and patient is off CBI. Likely discharge tomorrow 04/12.
[2018-04-11 13:46] LABS: Baso % (Auto) 0.2 % (0.0-2.0); Eos # (Auto) 0.1 th/mm3 (0.0-0.4); Eos % (Auto) 1.9 % (0.0-4.0); Hematocrit 32.4 % (39.0-51.0); Hemoglobin 10.5 gm/dL (13.0-17.0); Lymph # (Auto) 0.4 th/mm3 (1.0-4.8); Mean Corpuscular HGB Conc 32.4 % (32.0-36.0); Mean Corpuscular Hemoglobin 35.6 pg (27.0-34.0); Mean Platelet Volume 7.9 fL (7.0-11.0); Mono # (Auto) 0.6 th/mm3 (0.0-0.9); Neut # (Auto) 5.1 th/mm3 (1.8-7.7); Neut % (Auto) 81.9 % (16.0-70.0); Platelet Count 85 th/mm3 (150-450); Red Blood Count 2.94 mil/mm3 (4.50-5.90); Red Cell Distribution Width 17.7 % (11.6-17.2); White Blood Count 6.3 th/mm3 (4.0-11.0)
[2018-04-11 13:48] LABS: Alanine Aminotransferase 20 U/L (12-78); Albumin 2.9 g/dL (3.4-5.0); Alkaline Phosphatase 87 U/L (45-117); Anion Gap 9 meq/L (5-15); Aspartate Aminotransferase 27 U/L (15-37); Blood Urea Nitrogen 36 mg/dL (7-18); Calcium 8.2 mg/dL (8.5-10.1); Carbon Dioxide 23.8 meq/L (21.0-32.0); Chloride 106 meq/L (98-107); Glomerular Filtration Rate 40 mL/min (>89); Glucose,Random 104 mg/dL (74-106); Magnesium 2.8 mg/dL (1.5-2.5); Potassium 4.4 meq/L (3.5-5.1); Sodium 139 meq/L (136-145); Total Protein 6.5 g/dL (6.4-8.2)
[2018-04-11 14:45] LABS: Platelet Morphology Normal (Normal)
[2018-04-11] MEDS: Sod Chloride 0.9% Inj 1,000 ML IV.CONT SCH (14:56)
[2018-04-11] MEDS: Morphine Inj 4 MG/ML Vial IV.PUSH PRN (22:20)
[2018-04-11] MEDS: Isosorbide Mononitrate 20 MG Tablet PO SCH (22:40)
[2018-04-12] MEDS: Sod Chloride 0.9% Inj 1,000 ML IV.CONT SCH ×2 (05:40→21:01)
[2018-04-12 09:13] LABS: Baso % (Auto) 0.4 % (0.0-2.0); Eos # (Auto) 0.2 th/mm3 (0.0-0.4); Hematocrit 30.2 % (39.0-51.0); Hemoglobin 9.7 gm/dL (13.0-17.0); Lymph # (Auto) 0.4 th/mm3 (1.0-4.8); Lymph % (Auto) 7.3 % (9.0-44.0); Mean Corpuscular HGB Conc 32.3 % (32.0-36.0); Mean Corpuscular Hemoglobin 34.4 pg (27.0-34.0); Mean Corpuscular Volume 106.6 fL (80.0-100.0); Mean Platelet Volume 8.1 fL (7.0-11.0); Mono # (Auto) 0.6 th/mm3 (0.0-0.9); Mono % (Auto) 11.7 % (0.0-8.0); Neut # (Auto) 4.3 th/mm3 (1.8-7.7); Neut % (Auto) 77.6 % (16.0-70.0); Platelet Count 93 th/mm3 (150-450); Red Blood Count 2.83 mil/mm3 (4.50-5.90); Red Cell Distribution Width 17.1 % (11.6-17.2); White Blood Count 5.5 th/mm3 (4.0-11.0)
[2018-04-12 09:44] LABS: Platelet Morphology Normal (Normal)
--- NOTE | 2018-04-12 09:45 | P.PN ---
Subjective Interval history: Follow-up for hematuria. Patient reports continued intractable hematuria with clots last night requiring manual flushing and irrigation by RN. Reports continued diffuse suprapubic pain, temporarily relieved by pain medication. He reports occasional chills, denies subjective fevers, although did have a T- max of 100.8 yesterday at 4pm. He is requesting to see his urologist Dr. Bell. Physical Exam Vital signs: Vital Signs 04/11/18 12:00 04/11/18 15:59 04/11/18 20:00 Temperature 98.7 F 100.8 F H 98.6 F Pulse Rate 86 89 101 H Respiratory Rate 16 16 17 Blood Pressure 139/67 155/77 H 148/65 H Pulse Oximetry 93 L 95 92 L 04/11/18 23:29 04/12/18 03:51 04/12/18 07:58 Temperature 98.5 F 98.2 F 97.7 F Pulse Rate 92 H 84 94 H Respiratory Rate 17 17 20 Blood Pressure 126/60 132/59 L 132/63 Pulse Oximetry 92 L 96 96 Intake & Output 04/11/18 04/12/18 04/12/18 18:59 06:59 18:59 Intake Total 2220 / 2220 2220 / 2220 Output Total 675 / 675 1900 / 1900 Balance 1545 / 1545 320 / 320 Intake: IV 1000 / 1000 1000 / 1000 NS Inj 1,000 ML @ 65 mls/hr IV. 1000 / 1000 1000 / 1000 CONT .[id number] [facility] Rx#:[id number] Oral 1220 / 1220 1220 / 1220 Output: Urine 600 / 600 600 / 600 Urine Amount (Catheter) 1300 / 1300 3-way Urethral 1300 / 1300 Urine Amount (Stoma) 75 / 75 Pre-Hospital: Nephrostomy Tube 75 / 75 Left Other: Bladder Irrigation Fluid - Amount Instilled 3-way Urethral 16,800 7,200 Bladder Irrigation Fluid - Amount Drained 3-way Urethral 17,400 5,900 Date of Last Bowel Movement 04/10/18 # Bowel Movements 1 Narrative: GENERAL: Well-nourished, well-developed elderly male patient in [facility]. SKIN: Warm and dry. No rash. HEENT: Normocephalic. Atraumatic. Pupils equal and round. Mucous membranes pink and moist. CARDIOVASCULAR: Regular rate and rhythm. No murmur appreciated. RESPIRATORY: No accessory muscle use. Clear to auscultation. Breath sounds equal bilaterally. GASTROINTESTINAL: Abdomen soft, non-tender, nondistended. Normoactive bowel sounds x4. GENITOURINARY: Lobo in place with pink blood-tinged urine, no current clots in Lobo. Left-sided nephrostomy tube draining yellow urine; dressing CDI. MUSCULOSKELETAL: No obvious deformities. Extremities without clubbing, cyanosis , or edema. NEUROLOGICAL: Awake and alert. No obvious cranial nerve deficits. Moving all extremities spontaneously. Normal speech. PSYCHIATRIC: Appropriate mood and affect; insight and judgment normal. - Urinary Catheter Management 3-way Urethral Cath placed during this visit: yes, but has since been removed by the nurse Reason for continuing: Gross Hematuria Insertion date: 04/09/18 Insertion time: 20:00 Removal date: 04/09/18 Removal time: 19:50 Results - Labs CBC & Chem 7: 04/12/18 08:04 04/12/18 08:04 Laboratory Results - last 24 hr 04/11/18 04/11/18 04/12/18 13:00 13:00 08:04 WBC 6.3 5.5 RBC 2.94 L 2.83 L Hgb 10.5 L 9.7 L Hct 32.4 L 30.2 L MCV 110.0 H D 106.6 H MCH 35.6 H 34.4 H MCHC 32.4 32.3 RDW 17.7 H 17.1 Plt Count 85 L 93 L MPV 7.9 8.1 Prelim Diff (Auto) Slide review pending Slide review pending Neut % (Auto) 81.9 H 77.6 H Lymph % (Auto) 6.0 L 7.3 L Crowley % (Auto) 10.0 H 11.7 H Eos % (Auto) 1.9 3.0 Baso % (Auto) 0.2 0.4 Neut # (Auto) 5.1 4.3 Lymph # (Auto) 0.4 L 0.4 L Crowley # (Auto) 0.6 0.6 Eos # (Auto) 0.1 0.2 Baso # (Auto) 0.0 0.0 WBC Differential . . Diff Scan Auto diff confirmed Auto diff confirmed Differential Comment . . Platelet Estimate Low L Low L Platelet Morphology Normal Normal Sodium 139 Potassium 4.4 Chloride 106 Carbon Dioxide 23.8 Anion Gap 9 BUN 36 H Creatinine 1.65 H Estimated GFR 40 L Random Glucose 104 Calcium 8.2 L Magnesium 2.8 H Total Bilirubin 0.4 AST 27 ALT 20 Alkaline Phosphatase 87 Total Protein 6.5 Albumin 2.9 L - Imaging Abdomen/Pelvis CT 04/08/18 22:04 CONCLUSION: 1. Mass versus large clot in the urinary bladder and appears to be obstructing the Lobo catheter. Urinary bladder is moderately distended at the time of imaging. There is either mass or clot of the distal ureter as well. 2. External nephrostomy tube present on the left and appears to be appropriately positioned. No hydronephrosis but the collecting system appears indurated. Upper urinary tract infection should be included in the differential. 3. Slight degree of pulmonary edema suspected. 4. Liver is fatty infiltrated. Assessment and Plan - Plan 83-year-old male with a history of coronary artery disease status post CABG, peripheral artery disease, atrial fibrillation status post pacemaker placement, left-sided hydronephrosis status post nephrostomy tube 3 months ago, prostate cancer status post radioactive seed implantation who presents with a 1 day history of hematuria with constant dull suprapubic abdominal pain, inability to urinate. Acute hematuria with Acute blood loss Anemia: with hx of BPH, prostate cancer, left sided nephrostomy tube. -CT abd/pelvis reviewed, shows large clot in the urinary bladder and appears to be obstructing the Lobo catheter. Urinary bladder is moderately distended; External nephrostomy tube present on the left and appears to be appropriately positioned. No hydronephrosis but the collecting system appears indurated -S/p Lobo insertion in the ER with bladder irrigation -Urine culture with NGTD -Continue on CBI -Continue finasteride. -Urology consulted, recommends continue CBI and titrate off as urine continues to clear; May discharge home with Lobo to gravity once hematuria fully resolved. -Monitor CBC, Hgb has dropped from 13.1 on admission to 9.7 today, continue to monitor -04/12 Patient with continued recurrent obstructive clots and subsequent obstruction in Lobo requiring manual irrigation/flushing by RN, family requesting to see Dr. Bell, will reconsult SIRS: patient febrile with Tmax 101.1 and tachycardic HR 100s. Unclear etiology. -initial UA negative, however will repeat urinalysis -check blood cultures -continue to monitor Acute Renal Failure: postrenal secondary to obstructive uropathy -Cr increased to 2.57 -Continue IVF and CBI as above -Avoid nephrotoxins -Monitor renal function, slowly improving, currently 1.39 History of atrial fibrillation/CAD/CABG: chronic -Continue home metoprolol and imdur -patient's baby aspirin is on hold, Patient reports he has not tolerated any stronger anticoagulation in the past due to bleeding Gout: Chronic. -Continue patient's allopurinol All other chronic medical conditions stable, continue home meds as appropriate. DVT Prophylaxis: teds/SCDs; avoid chemoprophylaxis with active bleeding Discharge Planning: Not yet ready for discharge. Still with clots/hematuria. Re-consult to urology placed.
[2018-04-12 09:47] LABS: Carbon Dioxide 23.5 meq/L (21.0-32.0); Potassium 4.4 meq/L (3.5-5.1)
[2018-04-12] MEDS: Allopurinol 300 MG Tablet PO SCH (10:19)
[2018-04-12] MEDS: Finasteride 5 MG Tablet PO SCH (10:19)
[2018-04-12] MEDS: Magnesium Oxide 400 MG Tablet PO SCH (10:20)
--- NOTE | 2018-04-12 18:03 | P.PNURO ---
Subjective Patient symptoms today: Presently feels fine. Complains of having problems last night with catheter plugging secondary to clots requiring irrigation. Concerned he will have ongoing problems after catheter DC'd. Objective Vital Signs: Vital Signs 04/11/18 20:00 04/11/18 23:29 04/12/18 03:51 Temperature 98.6 F 98.5 F 98.2 F Pulse Rate 101 H 92 H 84 Respiratory Rate 17 17 17 Blood Pressure 148/65 H 126/60 132/59 L Pulse Oximetry 92 L 92 L 96 04/12/18 07:58 04/12/18 11:47 04/12/18 16:08 Temperature 97.7 F 98.2 F 98.0 F Pulse Rate 94 H 95 H 95 H Respiratory Rate 20 20 18 Blood Pressure 132/63 127/64 135/79 Pulse Oximetry 96 92 L 94 L Intake & Output 04/11/18 04/12/18 04/12/18 18:59 06:59 18:59 Intake Total 2220 / 2220 2220 / 2220 Output Total 675 / 675 1900 / 1900 Balance 1545 / 1545 320 / 320 Intake: IV 1000 / 1000 1000 / 1000 NS Inj 1,000 ML @ 65 mls/hr IV. 1000 / 1000 1000 / 1000 CONT .[id number] [facility] Rx#:[id number] Oral 1220 / 1220 1220 / 1220 Output: Urine 600 / 600 600 / 600 Urine Amount (Catheter) 1300 / 1300 3-way Urethral 1300 / 1300 Urine Amount (Stoma) 75 / 75 Pre-Hospital: Nephrostomy Tube 75 / 75 Left Other: Bladder Irrigation Fluid - Amount Instilled 3-way Urethral 16,800 7,200 Bladder Irrigation Fluid - Amount Drained 3-way Urethral 17,400 5,900 Date of Last Bowel Movement 04/10/18 04/10/18 # Bowel Movements 1 Result Diagrams: 04/12/18 08:04 04/12/18 08:04 Other Results: CBI running at a low rate with clear output Bladder not distended Medications and IVs: Active Medications Generic Name Dose Route Start Last Admin Trade Name Freq PRN Reason Stop Dose Admin Hydrocodone Bitart/Acetaminophen 1 tab 04/09/18 19:12 04/10/18 21:42 [place] 10/325 PO 1 tab Q6H PRN Administration PAIN SCALE 6 TO 10 Hydrocodone Bitart/Acetaminophen 1 tab 04/09/18 19:12 [place] 5/325 PO Q6H PRN PAIN SCALE 1 TO 5 Al Hydroxide/Mg Hydroxide 30 ml 04/09/18 00:02 04/10/18 17:03 Milk Of Magnesia Liq PO 30 ml Q12H PRN Administration Mild Constipation Allopurinol 150 mg 04/09/18 09:00 04/12/18 10:19 Zyloprim PO 150 mg DAILY JENNIFER Administration Bisacodyl 10 mg 04/09/18 00:02 Dulcolax Supp RECTAL DAILY PRN SEVERE CONSITIPATION Finasteride 5 mg 04/09/18 09:00 04/12/18 10:19 Proscar PO 5 mg DAILY JENNIFER Administration Sodium Chloride 1,000 mls @ 65 mls/hr 04/09/18 00:15 04/12/18 05:40 Ns Inj IV.CONT 65 mls/hr .[id number] JENNIFER Administration Isosorbide Mononitrate 10 mg 04/10/18 21:00 04/11/18 22:40 Ismo PO 10 mg HS JENNIFER Administration Lactulose 30 ml 04/09/18 00:02 Lactulose Liq PO DAILY PRN SEVERE CONSITIPATION Magnesium Oxide 400 mg 04/09/18 09:00 04/12/18 10:20 Mag-Ox PO 400 mg DAILY JENNIFER Administration Metoprolol Succinate 50 mg 04/09/18 09:00 04/12/18 10:20 Toprol Xl PO 50 mg DAILY JENNIFER Administration Morphine Sulfate 2 mg 04/09/18 06:18 04/11/18 22:20 Morphine Inj IV.PUSH 2 mg Q3H PRN Administration BREAKTHROUGH PAIN Sennosides 17.2 mg 04/09/18 00:02 Senokot PO Q12H PRN Moderate Constipation Tamsulosin HCl 0.4 mg 04/09/18 19:15 04/12/18 10:19 Flomax PO 0.4 mg DAILY JENNIFER Administration Assessment and Plan - Assessment (1) Gross hematuria Code(s): R31.0 - Gross hematuria Status: Acute - Plan Urologic impression: 1. Recurrent gross hematuria which is presently resolved 2. History prostate cancer as the likely source of the hematuria 3. 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 Continue with Lobo to gravity drainage. 2. N.p.o. after midnight 3. We will schedule patient for cystoscopy with possible clot evacuation for sometime tomorrow
[2018-04-12] MEDS ORDERED: Melatonin 5 MG Tablet PO ONE (20:46)
[2018-04-12] MEDS: Isosorbide Mononitrate 20 MG Tablet PO SCH (21:01)
[2018-04-12] MEDS ORDERED: Chlorhexidine Gluconate 2% 1 Pack (2 Cloths) TOPICAL ONE (21:45)
[2018-04-12] MEDS ORDERED: Sodium Chlor 0.9% Inj 500 ML IV.SIG SCH (22:00)
[2018-04-13 06:15] LABS: Hematocrit 25.8 % (39.0-51.0); Hemoglobin 8.6 gm/dL (13.0-17.0); Mean Corpuscular HGB Conc 33.1 % (32.0-36.0); Mean Corpuscular Hemoglobin 35.1 pg (27.0-34.0); Mean Corpuscular Volume 105.8 fL (80.0-100.0); Mean Platelet Volume 8.1 fL (7.0-11.0); Platelet Count 102 th/mm3 (150-450); Red Blood Count 2.44 mil/mm3 (4.50-5.90); Red Cell Distribution Width 16.4 % (11.6-17.2); White Blood Count 4.9 th/mm3 (4.0-11.0)
[2018-04-13 06:32] LABS: Calcium 7.7 mg/dL (8.5-10.1); Carbon Dioxide 22.5 meq/L (21.0-32.0); Potassium 4.1 meq/L (3.5-5.1)
[2018-04-13] MEDS: Magnesium Oxide 400 MG Tablet PO SCH (08:58)
[2018-04-13] MEDS: Finasteride 5 MG Tablet PO SCH (08:59)
[2018-04-13] MEDS: Allopurinol 300 MG Tablet PO SCH (08:59)
--- NOTE | 2018-04-13 12:58 | P.PN ---
Subjective Interval history: Follow up for hematuria. Attempted to see patient 1PM. Patient is in OR for cystoscopy. Physical Exam Vital signs: Vital Signs 04/12/18 16:00 04/12/18 16:08 04/12/18 19:40 Temperature 98.3 F 98.0 F 98.6 F Pulse Rate 95 H 95 H 85 Respiratory Rate 20 18 18 Blood Pressure 155/70 H 135/79 136/82 Pulse Oximetry 95 94 L 94 L 04/12/18 23:50 04/13/18 04:10 04/13/18 08:00 Temperature 98.6 F 97.9 F 97.7 F Pulse Rate 96 H 97 H 84 Respiratory Rate 17 17 16 Blood Pressure 125/69 120/62 136/67 Pulse Oximetry 94 L 93 L 96 Intake & Output 04/12/18 04/13/18 04/13/18 18:59 06:59 18:59 Intake Total 2740 / 2740 Output Total 100 / 100 1150 / 1150 Balance -100 / -100 1590 / 1590 Weight 61.2 kg Intake: IV 1000 / 1000 NS Inj 1,000 ML @ 65 mls/hr IV. 1000 / 1000 CONT .[id number] [facility] Rx#:[id number] Oral 240 / 240 Other 1500 / 1500 Output: Urine Amount (Catheter) 100 / 100 1150 / 1150 3-way Urethral 100 / 100 1150 / 1150 Urine Amount (Stoma) 0 / 0 Pre-Hospital: Nephrostomy Tube 0 / 0 Left Other: Other Intake Source Saline Solution Date of Last Bowel Movement 04/10/18 04/10/18 - Urinary Catheter Management 3-way Urethral Cath placed during this visit: yes, but has since been removed by the nurse Reason for continuing: Gross Hematuria Insertion date: 04/09/18 Insertion time: 20:00 Removal date: 04/09/18 Removal time: 19:50 Results - Labs CBC & Chem 7: 04/13/18 05:39 04/13/18 05:39 Laboratory Results - last 24 hr 04/13/18 04/13/18 05:39 05:39 WBC 4.9 RBC 2.44 L Hgb 8.6 L Hct 25.8 L MCV 105.8 H MCH 35.1 H MCHC 33.1 RDW 16.4 Plt Count 102 L MPV 8.1 Sodium 142 Potassium 4.1 Chloride 111 H Carbon Dioxide 22.5 Anion Gap 9 BUN 23 H Creatinine 1.20 Estimated GFR 58 L Random Glucose 90 Calcium 7.7 L Microbiology 04/12/18 09:25 Blood - Peripheral Aerobic Blood Culture - Preliminary No growth in 1 day 04/12/18 09:25 Blood - Peripheral Anaerobic Blood Culture - Preliminary No growth in 1 day 04/12/18 09:20 Blood - Peripheral Aerobic Blood Culture - Preliminary No growth in 1 day 04/12/18 09:20 Blood - Peripheral Anaerobic Blood Culture - Preliminary No growth in 1 day
[2018-04-13] MEDS ORDERED: Lidocaine 2% Jelly 5 ML Syringe TOPICAL ONE (14:15)
--- NOTE | 2018-04-13 14:35 | P.OP ---
- Preoperative Diagnosis (1) Gross hematuria - Postoperative Diagnosis (1) Gross hematuria Date of procedure: 04/13/18 Procedure: Flexible cystoscopy Anesthesia: MAC Surgeon: Johan Marrero MD Estimated blood loss (mL): 0 Pathology: none sent Operation and Findings: Indication for procedure: Case of a pleasant 83-year-old gentleman with history prostate cancer status post radiation therapy with recurrent episodes of gross hematuria. Patient recently admitted for management of hematuria with continuous bladder irrigation that would periodically stop working secondary to clot formation. He presents now for cystoscopic evaluation to check for any residual clots within the bladder. Urine was clear yellow this morning. Operative procedure in detail: Patient was brought to the cystoscopy suite and placed supine. He was then placed under intravenous sedation and light LMA anesthesia. He was repositioned in the dorsolithotomy position and prepped and draped in normal sterile fashion. After appropriate timeout was undertaken I proceeded with flexible cystoscopy. Initially 2% lidocaine jelly was instilled via the urethra prior to passing the scope. The urethra was patent without stricture formation. The prostatic urethra was patent with some erythematous areas likely the source of his recent hematuria. Further passive cystoscope within the urinary bladder failed to demonstrate any bladder tumor formation. There were patchy erythematous areas noted consistent with having had an indwelling Lobo catheter over the past week. There was no evidence of any retained clots within the urinary bladder. The flexible cystoscope was then gently withdrawn. The patient tolerated the procedure without complications and was transferred to the PACU in satisfactory condition.
--- NOTE | 2018-04-13 17:15 | P.DCO ---
- Physical Therapy Order: Evaluate and treat, Improve ambulation, Strength and gait training - Home Health Nursing Order: Medical education, Medication education-adverse effect, Nursing assessment with vital signs, Lobo catheter maintenance - Case Management Consult No - Certification I have seen patient Raleigh Paris on 04/13/18. My clinical findings support the need for the requested home health care services because: Deconditioned with increased weakness, High risk of falls, Infection with risk of complications I certify that my clinical findings support that this patient is homebound because: Post-op weakness, Unsteady gait/balance, Non-ambulatory: confined to bed or chair, Unable to use public transportation
--- NOTE | 2018-04-13 17:27 | P.PN ---
Subjective Interval history: Follow-up for hematuria. Patient currently is doing well. He returned from the OR after cystoscopy. Currently eating dinner. No acute concerns. Denies any chest pain, shortness of breath, fever or chills. Daughter is at bedside. Physical Exam Vital signs: Vital Signs 04/12/18 19:40 04/12/18 23:50 04/13/18 04:10 Temperature 98.6 F 98.6 F 97.9 F Pulse Rate 85 96 H 97 H Respiratory Rate 18 17 17 Blood Pressure 136/82 125/69 120/62 Pulse Oximetry 94 L 94 L 93 L 04/13/18 08:00 04/13/18 14:35 04/13/18 14:50 Temperature 97.7 F 98.4 F 98.4 F Pulse Rate 84 84 86 Respiratory Rate 16 14 14 Blood Pressure 136/67 118/55 L 135/56 L Pulse Oximetry 96 100 100 Intake & Output 04/12/18 04/13/18 04/13/18 18:59 06:59 18:59 Intake Total 2740 / 2740 1450 / 1450 Output Total 100 / 100 1150 / 1150 0 / 0 Balance -100 / -100 1590 / 1590 1450 / 1450 Weight 61.2 kg Intake: IV 1000 / 1000 1000 / 1000 NS Inj 1,000 ML @ 65 mls/hr IV. 1000 / 1000 1000 / 1000 CONT .[id number] [facility] Rx#:[id number] Oral 240 / 240 Anesthesia Amount 450 / 450 Other 1500 / 1500 Output: Estimated Blood Loss 0 / 0 Urine Amount (Catheter) 100 / 100 1150 / 1150 3-way Urethral 100 / 100 1150 / 1150 Urine Amount (Stoma) 0 / 0 Pre-Hospital: Nephrostomy Tube 0 / 0 Left Other: Other Intake Source Saline Solution Date of Last Bowel Movement 04/10/18 04/10/18 Narrative: GENERAL: Alert, NAD. SKIN: Warm and dry. HEAD: Normocephalic. EYES: No scleral icterus. No injection or drainage. NECK: Supple, trachea midline. No JVD or lymphadenopathy. CARDIOVASCULAR: Regular rate and rhythm without murmurs, gallops, or rubs. RESPIRATORY: Breath sounds equal bilaterally. No accessory muscle use. GASTROINTESTINAL: Abdomen soft, non-tender, nondistended. MUSCULOSKELETAL: No cyanosis, or edema. BACK: Nontender without obvious deformity. No CVA tenderness. - Urinary Catheter Management 3-way Urethral Cath placed during this visit: yes, but has since been removed by the nurse Reason for continuing: Gross Hematuria Insertion date: 04/09/18 Insertion time: 20:00 Removal date: 04/09/18 Removal time: 19:50 Results - Labs CBC & Chem 7: 04/13/18 05:39 04/13/18 05:39 Laboratory Results - last 24 hr 04/13/18 04/13/18 05:39 05:39 WBC 4.9 RBC 2.44 L Hgb 8.6 L Hct 25.8 L MCV 105.8 H MCH 35.1 H MCHC 33.1 RDW 16.4 Plt Count 102 L MPV 8.1 Sodium 142 Potassium 4.1 Chloride 111 H Carbon Dioxide 22.5 Anion Gap 9 BUN 23 H Creatinine 1.20 Estimated GFR 58 L Random Glucose 90 Calcium 7.7 L Microbiology 04/12/18 09:25 Blood - Peripheral Aerobic Blood Culture - Preliminary No growth in 1 day 04/12/18 09:25 Blood - Peripheral Anaerobic Blood Culture - Preliminary No growth in 1 day 04/12/18 09:20 Blood - Peripheral Aerobic Blood Culture - Preliminary No growth in 1 day 04/12/18 09:20 Blood - Peripheral Anaerobic Blood Culture - Preliminary No growth in 1 day - Procedures 04/13/2018 Flexible cystoscopy Assessment and Plan - Plan 83-year-old male with a history of coronary artery disease status post CABG, peripheral artery disease, atrial fibrillation status post pacemaker placement, left-sided hydronephrosis status post nephrostomy tube 3 months ago, prostate cancer status post radioactive seed implantation who presents with a 1 day history of hematuria with constant dull suprapubic abdominal pain, inability to urinate. Acute hematuria with Acute blood loss Anemia: with hx of BPH, prostate cancer, left sided nephrostomy tube. -CT abd/pelvis reviewed, showed large clot in the urinary bladder and appears to be obstructing the Lobo catheter. Urinary bladder is moderately distended; External nephrostomy tube present on the left and appears to be appropriately positioned. No hydronephrosis but the collecting system appears indurated -S/p Lobo insertion in the ER with bladder irrigation -Urine culture with NGTD -Continue finasteride. -Urology consulted. Patient underwent Cystoscopy today 04/13/2018. -Monitor CBC, Hgb has dropped from 13.1 on admission to 9.7 to 8.6 today (04/13/2018). SIRS: patient febrile with Tmax 101.1 and tachycardic HR 100s. Unclear etiology. -initial UA negative, however will repeat urinalysis -check blood cultures -continue to monitor Acute Renal Failure: postrenal secondary to obstructive uropathy -Cr improved from 2.57 --> 1.2. -Avoid nephrotoxins History of atrial fibrillation/CAD/CABG: chronic -Continue home metoprolol and imdur -patient's baby aspirin is on hold, Patient reports he has not tolerated any stronger anticoagulation in the past due to bleeding Gout: Chronic. -Continue patient's allopurinol All other chronic medical conditions stable, continue home meds as appropriate. DVT Prophylaxis: teds/SCDs; avoid chemoprophylaxis with active bleeding Overall, patient is doing well. Urology cleared for discharge if Patient can void. Patient's hgb 9.7 --> 8.6 over one day. We will check his Hgb in the AM and also have PT to eval patient. If hgb remains around 8.5, he can be discharged. Home health would be appropriate for him.
[2018-04-13] MEDS: Sod Chloride 0.9% Inj 1,000 ML IV.CONT SCH (19:24)
--- NOTE | 2018-04-13 19:40 | ECG ---
Date Performed: 04/12/2018 Time Performed: 22:23:23 PTAGE: 83 years EKG: Atrial fibrillation with controlled ventricular rate Ventricular demand pacing with fusion complexes ABNORMAL ECG PREVIOUS TRACING : 06/09/2017 17.12 Compared to previous tracing, probably no change DOCTOR: Joselito Conteh Interpretating Date/Time 04/13/2018 19:38:59
[2018-04-13] MEDS: Isosorbide Mononitrate 20 MG Tablet PO SCH (21:29)
[2018-04-14 07:32] LABS: Hemoglobin 9.7 gm/dL (13.0-17.0)
[2018-04-14] MEDS: Finasteride 5 MG Tablet PO SCH (09:13)
[2018-04-14] MEDS: Allopurinol 300 MG Tablet PO SCH (09:13)
[2018-04-14] MEDS: Magnesium Oxide 400 MG Tablet PO SCH (09:13)
--- NOTE | 2018-04-14 11:58 | P.PN ---
Subjective Interval history: Follow-up gross hematuria April 14, 2018-patient seen and examined; complains of urinary frequency when he stands up but without any gross hematuria Physical Exam Vital signs: Vital Signs 04/13/18 14:35 04/13/18 14:50 04/13/18 16:00 Temperature 98.4 F 98.4 F 97.6 F Pulse Rate 84 86 84 Respiratory Rate 14 14 16 Blood Pressure 118/55 L 135/56 L 141/66 H Pulse Oximetry 100 100 94 L 04/13/18 20:00 04/14/18 00:00 04/14/18 04:00 Temperature 97.6 F 97.7 F 97.3 F L Pulse Rate 84 105 H 87 Respiratory Rate 18 20 16 Blood Pressure 118/62 146/95 H 146/68 H Pulse Oximetry 94 L 95 94 L 04/14/18 08:00 Temperature 97.4 F L Pulse Rate 100 H Respiratory Rate 20 Blood Pressure 154/71 H Pulse Oximetry 88 L Intake & Output 04/13/18 04/14/18 04/14/18 18:59 06:59 18:59 Intake Total 1450 / 1450 480 / 480 Output Total 750 / 750 Balance 700 / 700 480 / 480 Intake: IV 1000 / 1000 NS Inj 1,000 ML @ 65 mls/hr IV. 1000 / 1000 CONT .[id number] [facility] Rx#:[id number] Oral 480 / 480 Anesthesia Amount 450 / 450 Output: Estimated Blood Loss 0 / 0 Urine Amount (Catheter) 750 / 750 3-way Urethral 750 / 750 Other: # Voids 1 3 Date of Last Bowel Movement 04/13/18 04/13/18 # Bowel Movements 1 Narrative: GENERAL: Alert, NAD. SKIN: Warm and dry. HEAD: Normocephalic. EYES: No scleral icterus. No injection or drainage. NECK: Supple, trachea midline. No JVD or lymphadenopathy. CARDIOVASCULAR: Regular rate and rhythm without murmurs, gallops, or rubs. RESPIRATORY: Breath sounds equal bilaterally. No accessory muscle use. GASTROINTESTINAL: Abdomen soft, non-tender, nondistended. MUSCULOSKELETAL: No cyanosis, or edema. BACK: Nontender without obvious deformity. No CVA tenderness. - Urinary Catheter Management 3-way Urethral Cath placed during this visit: yes, but has since been removed by the nurse Reason for continuing: Gross Hematuria Insertion date: 04/09/18 Insertion time: 20:00 Removal date: 04/09/18 Removal time: 19:50 Results - Labs CBC & Chem 7: 04/14/18 06:35 04/13/18 05:39 Laboratory Results - last 24 hr 04/14/18 06:35 Hgb 9.7 L Hct 29.0 L Microbiology 04/12/18 09:25 Blood - Peripheral Aerobic Blood Culture - Preliminary No growth in 2 days 04/12/18 09:25 Blood - Peripheral Anaerobic Blood Culture - Preliminary No growth in 2 days 04/12/18 09:20 Blood - Peripheral Aerobic Blood Culture - Preliminary No growth in 2 days 04/12/18 09:20 Blood - Peripheral Anaerobic Blood Culture - Preliminary No growth in 2 days - Procedures 04/13/2018 Flexible cystoscopy Assessment and Plan - Plan 83-year-old man with Acute hematuria with Acute blood loss Anemia: with hx of BPH, prostate cancer, left sided nephrostomy tube. -CT abd/pelvis showed large clot in the urinary bladder and appears to be obstructing the Lobo catheter. Urinary bladder is moderately distended; External nephrostomy tube present on the left and appears to be appropriately positioned. No hydronephrosis but the collecting system appears indurated -Urine culture with NGTD -Continue finasteride. -Urology consulted. Patient underwent Cystoscopy today 04/13/2018. -H&H 9.7/29.0 SIRS: Resolved Acute Renal Failure: postrenal secondary to obstructive uropathy-Resolved -Renal indices improved -Avoid nephrotoxins History of atrial fibrillation/CAD/CABG: chronic -Continue home metoprolol and imdur -patient's baby aspirin is on hold Gout: Chronic. -Continue patient's allopurinol All other chronic medical conditions stable, continue home meds as appropriate. DVT Prophylaxis: teds/SCDs; avoid chemoprophylaxis with active bleeding
--- NOTE | 2018-04-14 12:01 | P.DS ---
Date of admission: 04/12/18 09:45 Primary care physician: Juve Schroeder Brief History from admission: 83-year-old male with a history of coronary artery disease status post CABG, peripheral artery disease, fibrillation status post pacemaker placement, left- sided hydronephrosis status post nephrostomy tube 3 months ago, prostate cancer status post radioactive seed implantation who presents with a 1 day history of hematuria with constant dull suprapubic abdominal pain, inability to urinate. Patient had Lobo placed in the ER with some discomfort, and is undergone bladder irrigation with improvement in pain. Patient says he is otherwise feeling right. Denies any chest pain, shortness breath, nausea, vomiting, fevers, chills, diarrhea, constipation. DS: Medications - Discharge Medications Prescriptions: tamsulosin 0.4 mg PO DAILY #30 cap DS: Summary Hospital Course: while in the hospital, patient was treated for: Acute hematuria with Acute blood loss Anemia: with hx of BPH, prostate cancer, left sided nephrostomy tube. -CT abd/pelvis showed large clot in the urinary bladder and appears to be obstructing the Lobo catheter. Urinary bladder is moderately distended; External nephrostomy tube present on the left and appears to be appropriately positioned. No hydronephrosis but the collecting system appears indurated -Urine culture with NGTD -Treated with finasteride. -Urology consulted. Patient underwent Cystoscopy 04/13/2018. -H&H 9.7/29.0 SIRS: Resolved Acute Renal Failure: postrenal secondary to obstructive uropathy-Resolved -Renal indices improved -Avoid nephrotoxins History of atrial fibrillation/CAD/CABG: chronic -Treated with home metoprolol and imdur -patient's baby aspirin is on hold Gout: Chronic. -treated allopurinol All other chronic medical conditions stable, treated home meds as appropriate. DVT Prophylaxis: teds/SCDs; avoid chemoprophylaxis with active bleeding - Time Spent with Patient Total time spent providing and/or coordinating discharge services: Greater than 30 minutes - Quality: VTE Deep Vein Thrombosis/Pulmonary Embolism Present on Admission: No Exam Vital signs: Vital Signs 04/13/18 14:35 04/13/18 14:50 04/13/18 16:00 Temperature 98.4 F 98.4 F 97.6 F Pulse Rate 84 86 84 Respiratory Rate 14 14 16 Blood Pressure 118/55 L 135/56 L 141/66 H Pulse Oximetry 100 100 94 L 04/13/18 20:00 04/14/18 00:00 04/14/18 04:00 Temperature 97.6 F 97.7 F 97.3 F L Pulse Rate 84 105 H 87 Respiratory Rate 18 20 16 Blood Pressure 118/62 146/95 H 146/68 H Pulse Oximetry 94 L 95 94 L 04/14/18 08:00 Temperature 97.4 F L Pulse Rate 100 H Respiratory Rate 20 Blood Pressure 154/71 H Pulse Oximetry 88 L Intake & Output 04/13/18 04/14/18 04/14/18 18:59 06:59 18:59 Intake Total 1450 / 1450 480 / 480 Output Total 750 / 750 Balance 700 / 700 480 / 480 Intake: IV 1000 / 1000 NS Inj 1,000 ML @ 65 mls/hr IV. 1000 / 1000 CONT .[id number] [facility] Rx#:[id number] Oral 480 / 480 Anesthesia Amount 450 / 450 Output: Estimated Blood Loss 0 / 0 Urine Amount (Catheter) 750 / 750 3-way Urethral 750 / 750 Other: # Voids 1 3 Date of Last Bowel Movement 04/13/18 04/13/18 # Bowel Movements 1 Narrative: GENERAL: Alert, NAD. SKIN: Warm and dry. HEAD: Normocephalic. EYES: No scleral icterus. No injection or drainage. NECK: Supple, trachea midline. No JVD or lymphadenopathy. CARDIOVASCULAR: Regular rate and rhythm without murmurs, gallops, or rubs. RESPIRATORY: Breath sounds equal bilaterally. No accessory muscle use. GASTROINTESTINAL: Abdomen soft, non-tender, nondistended. MUSCULOSKELETAL: No cyanosis, or edema. BACK: Nontender without obvious deformity. No CVA tenderness. Results Procedures completed during hospitalization: 04/13/2018 Flexible cystoscopy Labs on day of discharge: Labs from last 24 hours 04/14/18 06:35 Hgb 9.7 L Hct 29.0 L Preliminary micro results at discharge 04/12/18 09:25 Aerobic Blood Culture - Preliminary Blood - Peripheral No growth in 2 days Anaerobic Blood Culture - Preliminary No growth in 2 days 04/12/18 09:20 Aerobic Blood Culture - Preliminary Blood - Peripheral No growth in 2 days Anaerobic Blood Culture - Preliminary No growth in 2 days - Impressions ITS Impressions Abdomen/Pelvis CT 04/08/18 22:04 CONCLUSION: 1. Mass versus large clot in the urinary bladder and appears to be obstructing the Lobo catheter. Urinary bladder is moderately distended at the time of imaging. There is either mass or clot of the distal ureter as well. 2. External nephrostomy tube present on the left and appears to be appropriately positioned. No hydronephrosis but the collecting system appears indurated. Upper urinary tract infection should be included in the differential. 3. Slight degree of pulmonary edema suspected. 4. Liver is fatty infiltrated. Discharge Plan - Discharge Disposition Patient Disposition: /Home Health Service - Discharge Condition Condition: Good - Discharge Order Discharge Orders: Discharge Order (Routine); Ordered 04/14/18 Ordered By: Quincy Pires - Discharge Details Anticipated Discharge Date: 04/13/18 Discharge Comment: Patient can be discharged if he voids per Urology. Discussed with daughter at bedside. - Physicians Team Primary Care Provider: Juve An Attending Provider: Quincy Pires Other Providers: Johan Marrero MD ; Juve An
[2018-04-14 12:30] VITALS: BP 158/79; PULSE 92; RESP 18; TEMP 97.5; O2SAT 96
--- NOTE | 2018-04-14 12:52 | P.PNURO ---
Subjective Patient symptoms today: Patient reports feeling great today. Voiding yellow urine without difficulty Objective Vital Signs: Vital Signs 04/13/18 14:35 04/13/18 14:50 04/13/18 16:00 Temperature 98.4 F 98.4 F 97.6 F Pulse Rate 84 86 84 Respiratory Rate 14 14 16 Blood Pressure 118/55 L 135/56 L 141/66 H Pulse Oximetry 100 100 94 L 04/13/18 20:00 04/14/18 00:00 04/14/18 04:00 Temperature 97.6 F 97.7 F 97.3 F L Pulse Rate 84 105 H 87 Respiratory Rate 18 20 16 Blood Pressure 118/62 146/95 H 146/68 H Pulse Oximetry 94 L 95 94 L 04/14/18 08:00 04/14/18 12:00 Temperature 97.4 F L 97.5 F L Pulse Rate 100 H 92 H Respiratory Rate 20 18 Blood Pressure 154/71 H 158/79 H Pulse Oximetry 88 L 96 Intake & Output 04/13/18 04/14/18 04/14/18 18:59 06:59 18:59 Intake Total 1450 / 1450 480 / 480 Output Total 750 / 750 Balance 700 / 700 480 / 480 Intake: IV 1000 / 1000 NS Inj 1,000 ML @ 65 mls/hr IV. 1000 / 1000 CONT .[id number] [facility] Rx#:[id number] Oral 480 / 480 Anesthesia Amount 450 / 450 Output: Estimated Blood Loss 0 / 0 Urine Amount (Catheter) 750 / 750 3-way Urethral 750 / 750 Other: # Voids 1 3 Date of Last Bowel Movement 04/13/18 04/13/18 04/13/18 # Bowel Movements 1 Result Diagrams: 04/14/18 06:35 04/13/18 05:39 Other Results: No CVA tenderness Bladder not distended Medications and IVs: Active Medications Generic Name Dose Route Start Last Admin Trade Name Freq PRN Reason Stop Dose Admin Hydrocodone Bitart/Acetaminophen 1 tab 04/09/18 19:12 04/12/18 23:22 [place] 10/325 PO 1 tab Q6H PRN Administration PAIN SCALE 6 TO 10 Hydrocodone Bitart/Acetaminophen 1 tab 04/09/18 19:12 [place] 5/325 PO Q6H PRN PAIN SCALE 1 TO 5 Al Hydroxide/Mg Hydroxide 30 ml 04/09/18 00:02 04/10/18 17:03 Milk Of Magnesia Liq PO 30 ml Q12H PRN Administration Mild Constipation Allopurinol 150 mg 04/09/18 09:00 04/14/18 09:13 Zyloprim PO 150 mg DAILY JENNIFER Administration Bisacodyl 10 mg 04/09/18 00:02 Dulcolax Supp RECTAL DAILY PRN SEVERE CONSITIPATION Finasteride 5 mg 04/09/18 09:00 04/14/18 09:13 Proscar PO 5 mg DAILY JENNIFER Administration Sodium Chloride 500 mls @ 30 mls/hr 04/12/18 22:00 Ns Inj IV.SIG .Q10H JENNIFER Isosorbide Mononitrate 10 mg 04/10/18 21:00 04/13/18 21:29 Ismo PO 10 mg HS JENNIFER Administration Lactulose 30 ml 04/09/18 00:02 Lactulose Liq PO DAILY PRN SEVERE CONSITIPATION Magnesium Oxide 400 mg 04/09/18 09:00 04/14/18 09:13 Mag-Ox PO 400 mg DAILY JENNIFER Administration Metoprolol Succinate 50 mg 04/09/18 09:00 04/14/18 09:13 Toprol Xl PO 50 mg DAILY JENNIFER Administration Miscellaneous Information 0 each 04/13/18 14:40 Misc Nursing Information OTHER 04/14/18 14:39 UNSCH PRN SEE LABEL COMMENTS Morphine Sulfate 2 mg 04/09/18 06:18 04/11/18 22:20 Morphine Inj IV.PUSH 2 mg Q3H PRN Administration BREAKTHROUGH PAIN Sennosides 17.2 mg 04/09/18 00:02 Senokot PO Q12H PRN Moderate Constipation Tamsulosin HCl 0.4 mg 04/09/18 19:15 04/14/18 09:13 Flomax PO 0.4 mg DAILY JENNIFER Administration Temazepam 7.5 mg 04/13/18 18:30 04/14/18 00:21 Restoril PO 7.5 mg HS PRN Administration INSOMNIA Assessment and Plan - Assessment (1) Gross hematuria Code(s): R31.0 - Gross hematuria Status: Acute - Plan Urologic impression: 1. Recurrent gross hematuria now resolved without evidence of retained clots on cystoscopic evaluation yesterday 2. History prostate cancer as the likely source of the hematuria 3. 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 Okay to discharge home from [facility] 2. Patient advised to remain off of daily aspirin for minimum of 2 weeks time 3. Patient advised to contact Dr. Bell's office on Monday to arrange a follow-up visit.
== END 2018-04-14 16:12 | disposition home or self-care (01) ==
LOC: NEPE 20:33 → NEDA 20:33 → NEPHCDU 04-09 01:49 → N06 04-12 17:14
PROVIDERS: ADMIT Hospitalist; ATTEND Hospitalist